=== PATIENT | male | born 1940 | race Hispanic/Latino ===

== ENCOUNTER 2017-01-15 11:10 | Day surgery (SDC) | payer MEDICARE, BC ==
[2017-01-14 09:40] VITALS: BMI 24.0
[2017-01-15 11:57] LABS: ADD MANUAL DIFF? NO
[2017-01-15 12:05] LABS: BASO % 6.9 % (0.0-3.0); EOS # 0.1 (0.0-0.7); EOS % 1.1 % (1.5-5.0); GRAN # 5.37 (1.4-6.5); GRAN % 61.5 % (50.0-68.0); HEMATOCRIT 27.2 % (42.0-52.0); LYMPH # 1.4 (1.2-3.4); LYMPH % 15.8 % (22.0-35.0); MEAN CELL VOLUME 85.8 fL (80.0-105.0); MEAN CORPUSCULAR HEMOGLOBIN 26.8 pg (25.0-35.0); MEAN CORPUSCULAR HGB CONC 31.3 g/dl (31.0-37.0); MEAN PLATELET VOLUME 8.5 fl (7.0-11.0); MONO # 1.3 (0.1-0.6); MONO % 14.7 % (1.0-6.0); PLATELET COUNT 156 10^3/uL (120.0-450.0); RED CELL DISTRIBUTION WIDTH 19.1 % (11.5-14.5); WHITE BLOOD COUNT 8.7 10^3/ul (4.5-11.0)
[2017-01-15 12:09] LABS: CALCIUM 8.9 mg/dL (8.4-10.5); POTASSIUM 4.8 mmol/L (3.6-5.0)
[2017-01-15 12:21] LABS: INR 1.06 (0.93-1.08)
--- NOTE | 2017-01-15 13:16 | CP.SDSHP ---
Same Day Surgery H & P - History Proposed Procedure: Insertion of Aspira cath Pre-Op Diagnosis: Ascites - Previous Medical/Surgical History Cardiac: Hypertension, Other (Abdominal ascites secondary to chronic diastolic failure.) Pulmonary: Other (Pulmonary HTN) Misc: Anemia (history of myelodysplastic syndrome), Other (History of developmental delays,has worsening of abdominal swelling over last few days, Diverticulosis ) Pain: 0. No Pain Previous Surgical History: EGD/Colonoscopy. Paracentesis x 2 - Allergies Allergies: Allergies No Known Allergies Allergy (Verified 12/18/16 12:03) - Physical Exam General Appearance: Elderly emaciated male Vital Signs: Vital Signs 01/15/17 11:30 Temperature 97.3 F L Pulse Rate 69 Respiratory 18 Rate Blood Pressure 126/62 O2 Sat by Pulse 100 Oximetry Mental Status: Alert & Oriented x3 Neuro: WNL Heart: WNL Lungs: WNL - {Optional Preform as Required} Abdomen: Other (distended.fluid ++,scrotal swelling +) Other Pertinent Findings: Pitting edema of the lower extremities noted. - Impression Impression: Ascites. - Date & Time Date: 01/15/17 Time: 13:16 Short Stay Discharge - Short Stay Discharge Admitting Diagnosis/Reason for Visit: ASCITES R18.8
[2017-01-15] MEDS ORDERED: Lidocaine 2% Inj (20ml) ONE (14:38)
[2017-01-15] MEDS ORDERED: Oxycodone/Acetaminophen 5/325 mg Tab PO PRN (15:34)
[2017-01-15 16:45] VITALS: RESP 20; TEMP 97; O2SAT 96
[2017-01-15 17:04] VITALS: BP 115/56; PULSE 68
--- NOTE | 2017-01-15 17:15 | VASCULAR ---
PROCEDURE: Ultrasound and fluoroscopically placed tunneled peritoneal catheter HISTORY: Cardiogenic cirrhosis. Recurrent ascites with abdominal pain and distention. Frequent paracenteses. Needs tunneled peritoneal catheter. PHYSICIAN(S): Ge Davis MD. TECHNIQUE: The relative risks and indications for the procedure were explained to the patient and his and informed written consent obtained. Sonography of the abdomen was performed in a supine position. This revealed a large amount of non-loculated ascites, greatest in the right lower quadrant. A puncture site was selected and the area was prepped and draped in the usual sterile fashion. 1% Xylocaine was used to anesthetize the skin and soft tissues. Conscious sedation monitoring were provided throughout the procedure by a nurse. A puncture the peritoneal cavity was performed in the right lower quadrant. 0.035 glidewire was advanced posteriorly and superiorly towards the diaphragm. The peel-away sheath was placed. Next the 15.5 Colombian Aspira catheter was advanced over the guidewire posteriorly and superiorly. The catheter was tunneled towards the midline. The catheter was secured in flush. A paracentesis was performed. 8000 cc of straw-colored fluid was aspirated. No labs were sent. IMPRESSION: 1. Ultrasound fluoroscopically placed tunneled peritoneal catheter. 2. Paracentesis. 8000 cc of clear yellow fluid was removed. 3. Initially a visiting nurse will be arranged for once a week. 1000 cc of fluid will be removed each week. The frequency and amount of fluid removed will be adjusted as necessary.
== END 2017-01-15 17:40 | disposition home or self-care (01) ==
LOC: SDS 11:10
PROVIDERS: ATTEND Radiology Vascular & Interventional Radiology
DX: D46.9 Myelodysplastic syndrome, unspecified (principal); I50.32 Chronic diastolic (congestive) heart failure; R62.50 Unspecified lack of expected normal physiological development in childhood; K57.30 Diverticulosis of large intestine without perforation or abscess without bleeding
CPT/HCPCS: 36415; 49418; 80048; 85025; 85610; 85730; 99152; C1769; J1644; J2405; J3010

== ENCOUNTER 2017-04-26 06:24 | Emergency (ER) | payer MEDICARE, BC ==
[2017-04-26 06:34] VITALS: BMI 22.9
[2017-04-26 06:38] VITALS: TEMP 98.4
--- NOTE | 2017-04-26 07:34 | ED PDOC ---
Arrival/HPI - General Chief Complaint: Weakness/Neurological Deficit Time Seen by Provider: 04/26/17 06:35 Historian: Patient - History of Present Illness Narrative History of Present Illness (Text): 04/26/17 07:34 A 77 year old male, whose past medical history includes CHF, was brought into the emergency department by EMS for evaluation. Patient reports this morning he slipped off his commode and landed on his bed. Patient denies any injuries or complaints. Patient notes left wrist pain and redness since the day prior, unrelated todays incident. Patient denies any loss of consciousness, head trauma , headache, dizziness, neck pain, fever, chills, nausea, vomiting, diarrhea, abdominal pain, back pain, chest pain or any other complaints. Sister states that since the patient was started on a new medication by nephrology, he has been having hand swelling and difficulty in getting up from a sitting position. She denies that the patient has been having frequent falls. PMD: Dr. Louis Time/Duration: Other (This morning) Quality: Other Context: Home Past Medical History - Provider Review Nursing Documentation Reviewed: Yes - Infectious Disease Hx of Infectious Diseases: None - Cardiac Hx Pacemaker: No Hx Peripheral Edema: Yes - Pulmonary Hx Respiratory Disorders: No - Neurological Hx Paralysis: No - Hematological/Oncological Hx Blood Transfusions: Yes Hx Blood Transfusion Reaction: No - Integumentary Hx Dermatological Disorder: Yes - Musculoskeletal/Rheumatological Hx Musculoskeletal Disorders: Yes - Gastrointestinal Hx Gastrointestinal Disorders: Yes (diverticulosis) - Psychiatric Hx Emotional Abuse: No Hx Physical Abuse: No Hx Substance Use: No - Surgical History Other/Comment: egd/colonoscopy polypectomy benign, sclerotherapy, clipping - Anesthesia Hx Anesthesia Reactions: No Hx Malignant Hyperthermia: No - Suicidal Assessment Feels Threatened In Home Enviroment: No Family/Social History - Physician Review Nursing Documentation Reviewed: Yes Family/Social History: No Known Family HX Smoking Status: Never Smoked Hx Alcohol Use: Yes (OCCASIONAL BEER) Hx Substance Use: No Allergies/Home Meds Allergies/Adverse Reactions: Allergies No Known Allergies Allergy (Verified 04/26/17 06:34) Home Medications: Home Meds Medication Instructions Recorded Confirmed Furosemide [Lasix] 80 mg PO BID 12/18/16 04/26/17 Potassium Chloride [K-Dur 20] 20 meq PO DAILY 01/14/17 04/26/17 Thiamine Mononitrate [Optimum 100 mg PO DAILY 01/14/17 04/26/17 Vitamin B-1] Review of Systems - Physician Review All systems were reviewed & negative as marked: Yes - Review of Systems Constitutional: absent: Fevers, Night Sweats Cardiovascular: absent: Chest Pain Gastrointestinal: absent: Abdominal Pain, Diarrhea, Nausea, Vomiting Musculoskeletal: Other (left wrist pain and redness). absent: Back Pain, Neck Pain Neurological: absent: Headache, Dizziness Physical Exam - Physical Exam Narrative Physical Exam (Text): Constitutional: No acute distress. Head: Normocephalic. Atraumatic. Eyes: PERRL. ENT: Moist mucous membranes. Neck: Supple. Cardiovascular: Regular rate. Chest: No tenderness. Respiratory: Clear to auscultation bilaterally. GI: Soft. Nontender. Nondistended. Back: No CVA tenderness. No midline tenderness. Musculoskeletal: Bilateral lower extremity pitting edema. No tenderness over bilateral ankle, tibia, fibula, knee or hip. Full ROM at hip. No clavicular pain. Mild erythema to radial aspect of left wrist with mild tenderness. Skin: No rash. Neurologic: Alert, no focal deficit. Vital Signs Reviewed: Yes Vital Signs Temp Pulse Resp BP Pulse Ox 04/26/17 08:22 73 17 122/58 L 99 04/26/17 06:36 98.4 F 80 16 137/69 98 Temperature: Afebrile Blood Pressure: Normal Pulse: Regular Respiratory Rate: Normal Appearance: Positive for: Well-Appearing, Non-Toxic, Comfortable Pain Distress: None Mental Status: Positive for: Alert and Oriented X 3 Medical Decision Making ED Course and Treatment: 04/26/17 07:33 Impression: A 77 year old male presents for evaluation after slipping off commode. Patient denies any pain or complaints. Patient notes left wrist pain and redness, unrelated to incident. Plan: -- Head CT -- Pelvis xray -- Left wrist xray -- Chest xray -- EKG -- Labs -- Urinalysis -- Reassess and disposition Progress Notes: Report Date : 04/26/2017 09:12:30 PROCEDURE: CT HEAD WITHOUT CONTRAST. Dictator : Ez Raymundo MD IMPRESSION: No acute intracranial findings XRs pelvis, CXR, and wrist no fracture or acute disease as read by me. Discussed case with Dr. Padkowsky, discussed labs and imaging results. He recommends discharge home and states he will see patient in his office tomorrow. - Lab Interpretations Lab Results: 04/26/17 06:35 04/26/17 06:35 Lab Results 04/26/17 06:35: Sodium 136, Potassium 4.5, Chloride 95 L, Carbon Dioxide 28, Anion Gap 18, BUN 93 H, Creatinine 2.3 H, Est GFR ( Amer) 34, Est GFR ( Non-Af Amer) 28, Random Glucose 176 H, Calcium 7.8 L, Total Bilirubin 0.9, AST 59, ALT 34, Alkaline Phosphatase 118, Total Creatine Kinase 55, Total Protein 7.6, Albumin 3.7, Globulin 3.9, Albumin/Globulin Ratio 0.9 L 04/26/17 06:35: PT 11.4, INR 1.06, APTT 35.2 H 04/26/17 06:35: WBC 12.3 H D, RBC 2.91 L, Hgb 7.5 L, Hct 24.9 L, MCV 85.6, MCH 25.8, MCHC 30.1 L, RDW 19.1 H, Plt Count 214, MPV 8.7, Gran % 70.7 H, Lymph % ( Auto) 11.5 L, Millard % (Auto) 12.1 H, Eos % (Auto) 1.5, Baso % (Auto) 4.2 H, Gran # 8.68 H, Lymph # 1.4, Millard # 1.5 H, Eos # 0.2, Baso # 0.52 I have reviewed the lab results: Yes - RAD Interpretation Radiology Orders: 04/26/17 07:42 HEAD W/O CONTRAST [CT] Stat CHEST ONE VIEW [RAD] Stat PELVIS ONE VIEW [RAD] Stat WRIST, LEFT 3 VIEWS [RAD] Stat - Scribe Statement The provider has reviewed the documentation as recorded by the Jeremyibclaudette Rico Provider Scribe Attestation: All medical record entries made by the Scribe were at my direction and personally dictated by me. I have reviewed the chart and agree that the record accurately reflects my personal performance of the history, physical exam, medical decision making, and the department course for this patient. I have also personally directed, reviewed, and agree with the discharge instructions and disposition. Disposition/Present on Arrival - Present on Arrival Any Indicators Present on Arrival: No History of DVT/PE: No History of Uncontrolled Diabetes: No Urinary Catheter: No History of Decub. Ulcer: No History Surgical Site Infection Following: None - Disposition Have Diagnosis and Disposition been Completed?: Yes Diagnosis: Fall Disposition: HOME/ ROUTINE Disposition Time: 10:00 Patient Plan: Discharge Condition: STABLE Discharge Instructions (ExitCare): Fall Prevention for Older Adults (ED) Referrals: Missy YOUNG,Jan Little MD [Primary Care Provider] - Follow up with primary
[2017-04-26 08:03] LABS: BASO # 0.52 K/mm3 (0.0-2.0); BASO % 4.2 % (0.0-3.0); EOS # 0.2 (0.0-0.7); EOS % 1.5 % (1.5-5.0); GRAN # 8.68 (1.4-6.5); GRAN % 70.7 % (50.0-68.0); LYMPH # 1.4 (1.2-3.4); LYMPH % 11.5 % (22.0-35.0); MEAN CELL VOLUME 85.6 fL (80.0-105.0); MEAN CORPUSCULAR HEMOGLOBIN 25.8 pg (25.0-35.0); MEAN CORPUSCULAR HGB CONC 30.1 g/dl (31.0-37.0); MEAN PLATELET VOLUME 8.7 fl (7.0-11.0); MONO # 1.5 (0.1-0.6); MONO % 12.1 % (1.0-6.0); PLATELET COUNT 214 10^3/uL (120.0-450.0); RBC 2.91 10^6/uL (3.5-6.1); RED CELL DISTRIBUTION WIDTH 19.1 % (11.5-14.5); WHITE BLOOD COUNT 12.3 10^3/ul (4.5-11.0)
[2017-04-26 08:04] LABS: INR 1.06 (0.93-1.08); PARTIAL THROMBOPLASTIN TIME 35.2 Seconds (23.7-30.8); PROTHROMBIN TIME 11.4 Seconds (9.9-11.8)
[2017-04-26 08:11] LABS: ALB/GLOB RATIO 0.9 (1.1-1.8); ALBUMIN 3.7 g/dL (3.0-4.8); CALCIUM 7.8 mg/dL (8.4-10.5)
[2017-04-26 08:20] LABS: HEMOGLOBIN 7.5 gm/dL (14.0-18.0)
[2017-04-26 08:23] VITALS: RESP 17
--- NOTE | 2017-04-26 08:46 | CARD ---
APPROVED REPORT EKG Measurement Heart [id number] <Conclusion> Atrial fibrillation Left axis deviation/LAHB Incomplete right bundle branch block STTW changes c/w ischemia.
--- NOTE | 2017-04-26 09:14 | CT ---
PROCEDURE: CT HEAD WITHOUT CONTRAST. HISTORY: fall COMPARISON: None available. TECHNIQUE: Axial computed tomography images were obtained through the head/brain without intravenous contrast. Radiation dose: Total exam DLP = 774 mGy-cm. This CT exam was performed using one or more of the following dose reduction techniques: Automated exposure control, adjustment of the mA and/or kV according to patient size, and/or use of iterative reconstruction technique. FINDINGS: HEMORRHAGE: No intracranial hemorrhage. BRAIN: No mass effect or edema. No atrophy or chronic microvascular ischemic changes. VENTRICLES: Unremarkable. No hydrocephalus. CALVARIUM: Unremarkable. PARANASAL SINUSES: Unremarkable as visualized. No significant inflammatory changes. 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 There is also partial opacification of the right middle ear cavity OTHER FINDINGS: None. IMPRESSION: No acute intracranial findings
[2017-04-26 10:17] VITALS: BP 99/55; PULSE 79; O2SAT 97
[2017-04-26 11:08] LABS: URINE BILIRUBIN NEGATIVE (NEGATIVE); URINE BLOOD TRACE-LYSED (NEGATIVE); URINE GLUCOSE (UA) NEGATIVE (NEGATIVE); URINE LEUKOCYTE ESTERASE NEGATIVE Leu/uL (NEGATIVE); URINE NITRATE NEGATIVE (NEGATIVE); URINE PROTEIN 30 mg/dL (<30 mg/dL); URINE UROBILINOGEN 0.2 E.U./dL (<1 E.U./dL)
[2017-04-26 11:10] LABS: URINE APPEARANCE CLEAR (CLEAR); URINE COLOR YELLOW (YELLOW)
--- NOTE | 2017-04-26 11:34 | RAD ---
PROCEDURE: Radiographs of the pelvis. HISTORY: fall COMPARISON: None. FINDINGS: BONES: Pelvic Bones: Unremarkable. Hips: Grossly unremarkable. JOINTS: Sacroiliac Joints: Unremarkable. Pubic Symphysis: Unremarkable. OTHER FINDINGS: None. IMPRESSION: Unremarkable radiographs of the pelvis.
--- NOTE | 2017-04-26 11:45 | RAD ---
PROCEDURE: CHEST RADIOGRAPH, 1 VIEW HISTORY: fall COMPARISON: 10/03/2016 FINDINGS: LUNGS: Clear. PLEURA: No pneumothorax or pleural fluid seen. CARDIOVASCULAR: Moderate cardiomegaly OSSEOUS STRUCTURES: No significant abnormalities. VISUALIZED UPPER ABDOMEN: Normal. OTHER FINDINGS: None. IMPRESSION: No active disease.
--- NOTE | 2017-04-26 11:45 | RAD ---
PROCEDURE: Left Wrist Radiographs. HISTORY: radial aspect swelling, erythema COMPARISON: None. FINDINGS: BONES: Normal. No fracture. JOINTS: Normal. No dislocation. SOFT TISSUES: Normal. OTHER FINDINGS: None. IMPRESSION: Normal left wrist radiographs.
== END 2017-04-26 10:36 | disposition home or self-care (01) ==
LOC: ED 06:24
DX: Z03.89 Encounter for observation for other suspected diseases and conditions ruled out (principal); W19.XXXA Unspecified fall, initial encounter

== ENCOUNTER 2017-11-13 23:37 | Inpatient (IN) | payer MEDICARE, BC ==
[2017-11-13 23:37] VITALS: BMI 22.9
--- NOTE | 2017-11-13 23:58 | ED PDOC ---
Arrival/HPI - General Historian: Patient - History of Present Illness Time/Duration: 1 week Symptom Onset: Gradual Symptom Course: Worsening Quality: Tightness (of bilateral lower extremities, focused tightness of the feet and ankles) <Nolvia Kolb - Last Filed: 11/14/17 04:03> <Laron Jeronimo DO - Last Filed: 11/14/17 06:22> - General Chief Complaint: Lower Extremity Problem/Injury Time Seen by Provider: 11/13/17 23:38 - History of Present Illness Narrative History of Present Illness (Text): CC: ankle pain, bilateral leg swelling 77M presents with bilateral leg swelling for the past week which did not fully improve with Lasix. Patient has been admitted in the past for CHF exacerbation. Patient states he recently had a paracentesis. Patient states he has shortness of breath for a week and leg swelling that has been greater than normal for a week. Patient has been taking water pills that have not been working lately. Patient states he has no issues with urination. Patient does not walk well lately due to leg pain per patient. PMH: CHF systolic dysfunction, cardiomegaly, pulmonary htn, anemia with history of myelodysplastic syndrome, diverticulosis, hypospadias, atrial fibrillation PMD: Dr. Louis 11/14/17 02:14 (Nolvia Kolb) Past Medical History - Provider Review Nursing Documentation Reviewed: Yes - Travel History Have you recently traveled outside [place] w/in the past 3 mons?: No - Infectious Disease Hx of Infectious Diseases: None - Cardiac Hx Pacemaker: No Hx Peripheral Edema: Yes - Pulmonary Hx Respiratory Disorders: No - Neurological Hx Paralysis: No - Hematological/Oncological Hx Blood Transfusions: Yes Hx Blood Transfusion Reaction: No - Integumentary Hx Dermatological Disorder: Yes - Musculoskeletal/Rheumatological Hx Musculoskeletal Disorders: Yes - Gastrointestinal Hx Gastrointestinal Disorders: Yes (diverticulosis) - Psychiatric Hx Emotional Abuse: No Hx Physical Abuse: No Hx Substance Use: No - Surgical History Other/Comment: egd/colonoscopy polypectomy benign, sclerotherapy, clipping - Anesthesia Hx Anesthesia Reactions: No Hx Malignant Hyperthermia: No - Suicidal Assessment Feels Threatened In Home Enviroment: No <Nolvia Kolb - Last Filed: 11/14/17 04:03> Family/Social History - Physician Review Nursing Documentation Reviewed: Yes Family/Social History: Unknown Family HX Smoking Status: Never Smoked Hx Alcohol Use: Yes (OCCASIONAL BEER) Hx Substance Use: No <Nolvia Kolb - Last Filed: 11/14/17 04:03> Allergies/Home Meds <Nolvia Kolb - Last Filed: 11/14/17 04:03> <Laron Jeronimo DO - Last Filed: 11/14/17 06:22> Allergies/Adverse Reactions: Allergies No Known Allergies Allergy (Verified 04/26/17 06:34) Home Medications: Home Meds Medication Instructions Recorded Confirmed Furosemide [Lasix] 80 mg PO BID 12/18/16 04/26/17 Potassium Chloride [K-Dur 20] 20 meq PO DAILY 01/14/17 04/26/17 Thiamine Mononitrate [Optimum 100 mg PO DAILY 01/14/17 04/26/17 Vitamin B-1] Review of Systems - Physician Review All systems were reviewed & negative as marked: Yes - Review of Systems Constitutional: Normal. absent: Fatigue, Weight Change Eyes: Normal. absent: Vision Changes, Photophobia ENT: Normal. absent: Hearing Changes, Tinnitus, Rhinorrhea, Epistaxis Respiratory: SOB. absent: Cough, Sputum, Wheezing Cardiovascular: Normal. absent: Chest Pain, Palpitations, Edema, Calf Pain Gastrointestinal: Normal. absent: Abdominal Pain, Stool Changes, Constipation, Diarrhea, Vomiting, Appetite Changes, Hematochezia, Hematemesis Genitourinary Male: Normal. absent: Dysuria, Frequency, Hematuria Musculoskeletal: Normal. absent: Arthralgias, Back Pain, Neck Pain Skin: Normal. absent: Rash, Pruritis, Skin Lesions Neurological: Normal. absent: Headache, Dizziness, Focal Weakness, Facial Droop , Disequilibrium Endocrine: Normal. absent: Diaphoresis, Polyuria, Polydipsia Hemo/Lymphatic: Normal. absent: Adenopathy, Easy Bleeding, Easy Bruising Psychiatric: Normal. absent: Anxiety, Depression, Suicidal Ideation <Nolvia Kolb - Last Filed: 11/14/17 04:03> Physical Exam Vital Signs Reviewed: Yes Temperature: Afebrile Pulse: Regular Respiratory Rate: Normal Appearance: Positive for: Uncomfortable. No: Non-Toxic Mental Status: Positive for: other (awake, delayed response in speech may be due to chronic alcohol abuse). No: Confused, Agitated, Lethargic - Systems Exam Head: Present: Atraumatic, Normocephalic Extroacular Muscles: Present: EOMI Conjunctiva: Present: Normal Mouth: Present: Moist Mucous Membranes, Normal Lips, Normal Tounge, Normal Teeth. No: Dry, Drooling, Trismus Nose (External): Present: Atraumatic. No: Abrasion, Contusion, Laceration Nose (Internal): Present: Normal Inspection, Moist Neck: Present: Normal Range of Motion, Trachea Midline. No: Meningeal Signs, JVD, Lymphadenopathy, Bruit Respiratory/Chest: Present: Clear to Auscultation, Good Air Exchange, Decreased Breath Sounds, Rales. No: Respiratory Distress, Accessory Muscle Use, Wheezes Cardiovascular: Present: Regular Rate and Rhythm, Normal S1, S2. No: Murmurs, Irregular Rhythm Abdomen: Present: Distention (positive fluid wave, ascites), Normal Bowel Sounds. No: Peritoneal Signs, Rebound Genitourinary Male: Present: Hernias (partially reducible left inguinal hernia) . No: Normal External Genitalia, Circumcised Penis, Testicle Tenderness, Masses , Erythema Upper Extremity: Present: Normal Inspection, Normal ROM, NORMAL PULSES, Capillary Refill < 2s Lower Extremity: Present: Edema, NORMAL PULSES. No: Normal ROM Neurological: Present: GCS=15, CN II-XII Intact Skin: Present: Warm, Dry, Rashes Psychiatric: Present: Alert, Other (patient has mental retardation) <Nolvia Kolb - Last Filed: 11/14/17 04:03> Vital Signs Temp Pulse Resp BP Pulse Ox 11/14/17 02:26 123/60 11/14/17 02:18 97.9 F 78 17 123/58 L 98 11/14/17 00:33 126/66 11/13/17 23:49 97.9 F 86 18 97 Medical Decision Making Re-evaluation Time: 02:01 Reassessment Condition: Re-examined, Unchanged - Lab Interpretations I have reviewed the lab results: Yes Interpretation: Abnormal lab values (hgb 7.3) - EKG Interpretation Interpreted by ED Physician: Yes Type: 12 lead EKG (78bpm atrial fibrillation) <Nolvia Kolb - Last Filed: 11/14/17 04:03> - Lab Interpretations I have reviewed the lab results: Yes <Laron Jeronimo DO - Last Filed: 11/14/17 06:22> ED Course and Treatment: 11/14/17 00:13 f/u CBC, CMP, Mg, ph, BNP, troponin I, EKG, CXR Patient was given Lasix 11/14/17 02:15 Lasix 40mg IVP additional Bladder scan showed 675cc spoke to Dr. Miguel Louis, patient is being admitted to telemetry 11/14/17 02:15 Phoslo ordered due to high phosphorus levels 11/14/17 02:38 (Nolvia Kolb) Patient Seen With Resident: In agreement with resident note which contains more details about the patient. Patient was seen and evaluated with resident. Came up with plan and treatment together. 77 year old male presents complaining of bilateral leg swelling for the past week. Plan: -- EKG -- Labs -- CXR -- Lasix (Laron Jeronimo DO) - Lab Interpretations Narrative Lab Interpretation (Text): 11/14/17 01:00 FOBT negative 11/14/17 02:37 BUN 107/3.6, GFR 17 Calcium 7.8, Phosph 7.2 BNP elevated Urinalysis high in protein , negative for nitrates and leukocyte esterase 11/14/17 02:38 (Cortes,Nolvia) Lab Results: 11/14/17 00:30 11/14/17 00:30 Lab Results 11/14/17 02:10: Urine Color Yellow, Urine Appearance Sl cloudy, Urine pH 6.0, Ur Specific Morgan 1.020, Urine Protein Trace H, Urine Glucose (UA) Negative, Urine Ketones Negative, Urine Blood Small H, Urine Nitrate Negative, Urine Bilirubin Negative, Urine Urobilinogen 0.2, Ur Leukocyte Esterase Negative, Urine RBC 1 - 3, Urine WBC 0 - 2, Ur Epithelial Cells 0 - 2 11/14/17 00:30: Sodium 138, Potassium 4.4, Chloride 97 L, Carbon Dioxide 23, Anion Gap 22 H, BUN 107 H, Creatinine 3.6 H, Est GFR ( Amer) 20, Est GFR (Non-Af Amer) 17, Random Glucose 164 H, Calcium 7.8 L, Phosphorus 7.2 H, Magnesium 2.1, Total Bilirubin 0.9, AST 52, ALT 25, Alkaline Phosphatase 109, Troponin I 0.04 D, NT-Pro-B Natriuret Pep 10707 H, Total Protein 7.4, Albumin 3.9, Globulin 3.5, Albumin/Globulin Ratio 1.1 11/14/17 00:30: WBC 8.7 D, RBC 2.77 L, Hgb 7.3 L, Hct 23.4 L, MCV 84.5, MCH 26.4, MCHC 31.2, RDW 18.8 H, Plt Count 231, MPV 8.5, Gran % 68.3 H, Lymph % ( Auto) 8.8 L, [place]isco[place] % (Auto) 17.6 H, Eos % (Auto) 1.1 L, Baso % (Auto) 4.2 H, Gran # 5.94, Lymph # 0.8 L, [place]isco[place] # 1.5 H, Eos # 0.1, Baso # 0.37 hgb 7.3 hct 23.4 previous hgb 7.5 in april 26 2017 (Nolvia Kolb) - RAD Interpretation Narrative RAD Interpretations (Text): 11/14/17 01:19 CXR cardiomegaly, venous congestion (Nolvia Kolb) Radiology Orders: 11/13/17 23:53 CHEST PORTABLE [RAD] Stat - Medication Orders Current Medication Orders: Discontinued Medications Calcium Acetate (Phoslo) 667 mg PO STAT STA Stop: 11/14/17 02:36 Last Admin: 11/14/17 02:58 Dose: 667 mg Furosemide (Lasix) 40 mg IVP STAT STA Stop: 11/13/17 23:54 Last Admin: 11/14/17 00:33 Dose: 40 mg MAR Blood Pressure Document 11/14/17 00:33 RD (Rec: 11/14/17 00:33 RD [id number]) Blood Pressure Blood Pressure (100/60-150/90) 126/66 IVP Administration Document 11/14/17 00:33 RD (Rec: 11/14/17 00:33 RD [id number]) Charges for Administration # of IVP Administrations 1 Furosemide (Lasix) 40 mg IVP STAT STA Stop: 11/14/17 02:06 Last Admin: 11/14/17 02:26 Dose: 40 mg MAR Blood Pressure Document 11/14/17 02:26 SS (Rec: 11/14/17 02:26 SS [id number]) Blood Pressure Blood Pressure (100/60-150/90) 123/60 IVP Administration Document 11/14/17 02:26 SS (Rec: 11/14/17 02:26 SS [id number]) Charges for Administration # of IVP Administrations 1 <Nolvia Kolb - Last Filed: 11/14/17 04:03> - Scribe Statement The provider has reviewed the documentation as recorded by the Scribe <Laron Jeronimo DO - Last Filed: 11/14/17 06:22> - Scribe Statement Nomi Lobo Provider Scribe Attestation: All medical record entries made by the Scribe were at my direction and personally dictated by me. I have reviewed the chart and agree that the record accurately reflects my personal performance of the history, physical exam, medical decision making, and the department course for this patient. I have also personally directed, reviewed, and agree with the discharge instructions and disposition. (Laron Jeronimo DO) Disposition/Present on Arrival - Present on Arrival Any Indicators Present on Arrival: No History of DVT/PE: No History of Uncontrolled Diabetes: No Urinary Catheter: No History of Decub. Ulcer: No History Surgical Site Infection Following: None - Disposition Have Diagnosis and Disposition been Completed?: Yes Disposition Time: 02:14 Patient Plan: Admission <Nolvia Kolb - Last Filed: 11/14/17 04:03> - Disposition Disposition Time: 01:50 <Laron Jeronimo DO - Last Filed: 11/14/17 06:22> - Disposition Diagnosis: CHF (congestive heart failure), CHF exacerbation, Left inguinal hernia, Hypospadias Disposition: HOSPITALIZED Patient Problems: Current Active Problems Problem Status Onset CHF (congestive heart failure) Acute CHF exacerbation Acute Hypospadias Acute Left inguinal hernia Acute Condition: FAIR
[2017-11-14 00:41] LABS: BASO # 0.37 K/mm3 (0.0-2.0); BASO % 4.2 % (0.0-3.0); EOS # 0.1 (0.0-0.7); EOS % 1.1 % (1.5-5.0); GRAN # 5.94 (1.4-6.5); GRAN % 68.3 % (50.0-68.0); LYMPH # 0.8 (1.2-3.4); LYMPH % 8.8 % (22.0-35.0); MEAN CELL VOLUME 84.5 fl (80.0-105.0); MEAN CORPUSCULAR HEMOGLOBIN 26.4 pg (25.0-35.0); MEAN CORPUSCULAR HGB CONC 31.2 g/dl (31.0-37.0); MEAN PLATELET VOLUME 8.5 fl (7.0-11.0); MONO # 1.5 (0.1-0.6); MONO % 17.6 % (1.0-6.0); RBC 2.77 10^6/uL (3.5-6.1); RED CELL DISTRIBUTION WIDTH 18.8 % (11.5-14.5); WHITE BLOOD COUNT 8.7 10^3/ul (4.5-11.0)
[2017-11-14 00:45] LABS: HEMOGLOBIN 7.3 g/dL (14.0-18.0)
[2017-11-14 01:02] LABS: TROPONIN I 0.04 ng/mL
[2017-11-14 01:48] LABS: ALB/GLOB RATIO 1.1 (1.1-1.8); ALBUMIN 3.9 g/dL (3.0-4.8); CALCIUM 7.8 mg/dL (8.4-10.5); MAGNESIUM 2.1 mg/dL (1.7-2.2)
[2017-11-14 02:32] LABS: URINE BILIRUBIN NEGATIVE (NEGATIVE); URINE BLOOD SMALL (NEGATIVE); URINE GLUCOSE (UA) NEGATIVE (NEGATIVE); URINE LEUKOCYTE ESTERASE NEGATIVE Leu/uL (NEGATIVE); URINE NITRATE NEGATIVE (NEGATIVE); URINE PROTEIN TRACE mg/dL (<30 mg/dL); URINE UROBILINOGEN 0.2 E.U./dL (<1 E.U./dL)
[2017-11-14 02:48] LABS: URINE COLOR YELLOW (YELLOW)
[2017-11-14 02:49] LABS: URINE APPEARANCE SL CLOUDY (CLEAR)
[2017-11-14 02:56] LABS: URINE EPITHELIAL CELLS 0 - 2 /hpf (0-5); URINE WBC 0 - 2 /hpf (0-6)
--- NOTE | 2017-11-14 08:53 | RAD ---
HISTORY: Shortness of breath COMPARISON: 04/26/2017. FINDINGS: LUNGS: The lungs are well inflated. There is mild pulmonary venous congestion and redistribution. PLEURA: No significant pleural effusion identified, no pneumothorax apparent. CARDIOVASCULAR: There is moderate cardiomegaly. OSSEOUS STRUCTURES: No significant abnormalities. VISUALIZED UPPER ABDOMEN: Normal. OTHER FINDINGS: None. IMPRESSION: Moderate cardiomegaly, mild pulmonary venous congestion and redistribution. No active pulmonary disease.
--- NOTE | 2017-11-14 15:49 | HP ---
HISTORY OF PRESENT ILLNESS: The patient is a 77-year-old man with a past medical history of myelodysplastic syndrome (followed by Dr. Constantino), chronic diastolic heart failure, severe pulmonary hypertension, CKD stage IV (baseline creatinine 3.5 to 4), recurrent ascites secondary to severe underlying right heart failure/severe pulmonary hypertension, status post placement of abdominal thoracentesis port and anemia of chronic disease (baseline hemoglobin 7 to 8), who presented to [facility] ED for evaluation of a several-day history of worsening lower extremity edema, dyspnea with exertion and orthopnea. The patient reports that he was in his usual state of health until approximately one week ago when he noted increasing lower extremity edema. He states that his feet were becoming more heavy and it was more difficult for him to ambulate. He also reported increased dyspnea with exertion as well as two-pillow orthopnea. He denies fevers, chills, rigors, palpitations or chest pain associated with the symptoms, but did endorse cough intermittently productive of clear sputum. Upon arrival to the ED, he was noted to be afebrile and hemodynamically stable; however, with significant lower extremity edema, he was administered 40 mg of IV Lasix x2 and subsequently admitted to the telemetry dempsey for continued management of diastolic heart failure. PAST MEDICAL HISTORY: As per HPI, also hypertension. PAST SURGICAL HISTORY: As per HPI. ALLERGIES: NO KNOWN DRUG ALLERGIES. MEDICATIONS: Omeprazole 40 mg p.o. daily, Flomax 0.4 mg p.o. daily, multivitamin 1 tab p.o. daily and Lasix 80 mg p.o. b.i.d. FAMILY HISTORY: Significant for hypertension and malignancy in both parents (the patient is unclear as to what type of cancer, however). SOCIAL HISTORY: The patient reports a former [id number] smoking history, but quit several years ago. He reports former daily alcohol use consisting of 5 to 6 beers daily, but quit approximately 3 years ago, and he denies illicit drug abuse. REVIEW OF SYSTEMS: A 14-point review of systems is negative except as per HPI. PHYSICAL EXAMINATION: GENERAL: No apparent distress. VITAL SIGNS: Temperature 97.7, pulse 71, blood pressure 132/64, respiratory rate 18, oxygen saturation 98% on room air. HEENT: PERRL. EOMI. No scleral icterus. Conjunctival pallor is noted. NECK: No JVD. No bruit. LUNGS: Decreased breath sounds to the basis with few scattered rhonchi. CARDIOVASCULAR: Regular rate and rhythm. Normal S1 and S2. Grade 2/6 systolic murmur to the left upper sternal border. ABDOMEN: Soft, nontender. Mildly distended. No rigidity. No tympany. Paracentesis access appears clean, dry and intact. EXTREMITIES: 1 to 2+ lower extremity edema bilaterally with chronic venous stasis changes. NEUROLOGIC: Awake, alert, and oriented x3. No focal motor deficits. LABORATORY DATA: WBC 8.7, hemoglobin 7.3, hematocrit 23, platelets 231. Sodium 138, potassium 4.4, chloride 97, bicarbonate 23, BUN 107, creatinine 3.6, glucose 164, calcium 7.8, phosphorus 7.2. BNP 33,900. Troponin 0.04. IMAGING STUDIES: Chest x-ray demonstrates cardiomegaly with bilateral pulmonary venous congestion. ASSESSMENT: The patient is a 77-year-old man with multiple medical comorbidities including chronic diastolic heart failure with severe pulmonary hypertension, recurrent ascites secondary to underlying right heart failure/severe pulmonary hypertension, chronic kidney disease stage IV, anemia of chronic disease, and myelodysplastic syndrome, who presented for evaluation of a several-day history of worsening lower extremity edema, orthopnea and exertional dyspnea, and who was admitted for management of acute on chronic diastolic heart failure exacerbation. PLAN: 1. Acute on chronic diastolic heart failure exacerbation, continue Lasix 60 mg IV q. 12 hours, continue to monitor strict in's and out's. The patient has diuresed 1.2 liters since admission. Continue to monitor daily weights. We will repeat transthoracic echocardiogram and cycle cardiac enzymes (first set negative). Dr. Danielle of Cardiology has been consulted for further evaluation and recommendations. 2. CKD stage IV. The patient is at his baseline creatinine of 3.5 to 4. We will continue to renally dose medications, avoid nephrotoxins and monitor renal function daily. 3. Recurrent ascites secondary to underlying right heart failure/severe pulmonary hypertension. Continue with care as per #1. 4. Anemia of chronic disease. Lab demonstrates H and H at patient's baseline. His is followed by Dr. Constantino on an outpatient basis for Aranesp treatment. 5. Myelodysplastic syndrome. As above, the patient will resume followup with Dr. Constantino upon discharge. 6. Hypertension. Blood pressure controlled. Continue current medications. 7. BPH. Resume Flomax 0.4 mg p.o. daily. 8. GERD. The patient is on omeprazole 40 mg p.o. daily at home; however, this is not on formulary, thus we will start Protonix 40 mg p.o. daily. 9. Prophylaxis. Continue with Protonix for GI prophylaxis and SCD's for DVT prophylaxis. CODE STATUS: Full code. Jan Louis MD
--- NOTE | 2017-11-14 15:55 | CARD ---
APPROVED REPORT EKG Measurement Heart [id number] <Conclusion> Atrial fibrillation Left axis deviation Right bundle branch block Abnormal ECG
--- NOTE | 2017-11-14 23:57 | CP.PCM.PN ---
Subjective - Date & Time of Evaluation Date of Evaluation: 11/14/17 Time of Evaluation: 23:53 - Subjective Subjective: Patient was seen at bedside. He complains of both ankle pain. It is chronic problem. Takes some pain medication at home but can not tell the name of it. Has no other complaints now. Has swelling of both ankles ,right > left. States that this swelling of both ankle in not new. This 77 year old white male is admitted with both legs swelling, dyspnea with exertion, orthopnea, acute on chronic diasolic heart failure. Has PMH of Chronic diastolic heart failure, myelodysplastic syndrome,CKD, ascites, pulmonary HTN, anemia, HTN. Objective - Vital Signs/Intake and Output Vital Signs (last 24 hours): Temp Pulse Resp BP Pulse Ox 99.1 F 78 20 142/78 96 11/14/17 18:00 11/14/17 18:00 11/14/17 18:00 11/14/17 21:20 11/14/17 04:28 - Medications Medications: Current Medications Acetaminophen (Tylenol 325mg Tab) 975 mg PO STAT STA Stop: 11/14/17 23:53 Furosemide (Lasix) 60 mg IVP Q12 JAMES Last Admin: 11/14/17 21:20 Dose: 60 mg Pantoprazole Sodium (Protonix Ec Tab) 40 mg PO 0600 JAMES Tamsulosin HCl (Flomax) 0.4 mg PO DAILY [facility] Last Admin: 11/14/17 09:23 Dose: 0.4 mg - Labs Labs: Most Recent Lab Values WBC 8.7 10^3/ul (4.5-11.0) D 11/14/17 00:30 RBC 2.77 10^6/uL (3.5-6.1) L 11/14/17 00:30 Hgb 7.3 g/dL (14.0-18.0) L 11/14/17 00:30 Hct 23.4 % (42.0-52.0) L 11/14/17 00:30 MCV 84.5 fl (80.0-105.0) 11/14/17 00:30 MCH 26.4 pg (25.0-35.0) 11/14/17 00:30 MCHC 31.2 g/dl (31.0-37.0) 11/14/17 00:30 RDW 18.8 % (11.5-14.5) H 11/14/17 00:30 Plt Count 231 10^3/uL (120.0-450.0) 11/14/17 00:30 MPV 8.5 fl (7.0-11.0) 11/14/17 00:30 Gran % 68.3 % (50.0-68.0) H 11/14/17 00:30 Lymph % (Auto) 8.8 % (22.0-35.0) L 11/14/17 00:30 [place] % (Auto) 17.6 % (1.0-6.0) H 11/14/17 00:30 Eos % (Auto) 1.1 % (1.5-5.0) L 11/14/17 00:30 Baso % (Auto) 4.2 % (0.0-3.0) H 11/14/17 00:30 Gran # 5.94 (1.4-6.5) 11/14/17 00:30 Lymph # 0.8 (1.2-3.4) L 11/14/17 00:30 [place] # 1.5 (0.1-0.6) H 11/14/17 00:30 Eos # 0.1 (0.0-0.7) 11/14/17 00:30 Baso # 0.37 K/mm3 (0.0-2.0) 11/14/17 00:30 Sodium 138 mmol/L (132-148) 11/14/17 00:30 Potassium 4.4 mmol/L (3.6-5.0) 11/14/17 00:30 Chloride 97 mmol/L (98-107) L 11/14/17 00:30 Carbon Dioxide 23 mmol/L (21-33) 11/14/17 00:30 Anion Gap 22 (10-20) H 11/14/17 00:30 BUN 107 mg/dL (7-21) H 11/14/17 00:30 Creatinine 3.6 mg/dl (0.8-1.5) H 11/14/17 00:30 Est GFR ( Amer) 20 11/14/17 00:30 Est GFR (Non-Af Amer) 17 11/14/17 00:30 Random Glucose 164 mg/dL (70-110) H 11/14/17 00:30 Calcium 7.8 mg/dL (8.4-10.5) L 11/14/17 00:30 Phosphorus 7.2 mg/dL (2.5-4.5) H 11/14/17 00:30 Magnesium 2.1 mg/dL (1.7-2.2) 11/14/17 00:30 Total Bilirubin 0.9 mg/dL (0.2-1.3) 11/14/17 00:30 AST 52 U/L (17-59) 11/14/17 00:30 ALT 25 U/L (7-56) 11/14/17 00:30 Alkaline Phosphatase 109 U/L (38-126) 11/14/17 00:30 Troponin I 0.05 ng/mL D 11/14/17 09:30 NT-Pro-B Natriuret Pep 50969 pg/mL (0-450) H 11/14/17 00:30 Total Protein 7.4 g/dL (5.8-8.3) 11/14/17 00:30 Albumin 3.9 g/dL (3.0-4.8) 11/14/17 00:30 Globulin 3.5 gm/dL 11/14/17 00:30 Albumin/Globulin Ratio 1.1 (1.1-1.8) 11/14/17 00:30 Urine Color Yellow (YELLOW) 11/14/17 02:10 Urine Appearance Sl cloudy (CLEAR) 11/14/17 02:10 Urine pH 6.0 (4.7-8.0) 11/14/17 02:10 Ur Specific [place] 1.020 (1.005-1.035) 11/14/17 02:10 Urine Protein Trace mg/dL (<30 mg/dL) H 11/14/17 02:10 Urine Glucose (UA) Negative mg/dL (NEGATIVE) 11/14/17 02:10 Urine Ketones Negative mg/dL (NEGATIVE) 11/14/17 02:10 Urine Blood Small (NEGATIVE) H 11/14/17 02:10 Urine Nitrate Negative (NEGATIVE) 11/14/17 02:10 Urine Bilirubin Negative (NEGATIVE) 11/14/17 02:10 Urine Urobilinogen 0.2 E.U./dL (<1 E.U./dL) 11/14/17 02:10 Ur Leukocyte Esterase Negative [place]/uL (NEGATIVE) 11/14/17 02:10 Urine RBC 1 - 3 /hpf (0-2) 11/14/17 02:10 Urine WBC 0 - 2 /hpf (0-6) 11/14/17 02:10 Ur Epithelial Cells 0 - 2 /hpf (0-5) 11/14/17 02:10 - Constitutional Appears: Well, No Acute Distress - Head Exam Head Exam: ATRAUMATIC, NORMAL INSPECTION, NORMOCEPHALIC - Eye Exam Eye Exam: Normal appearance - ENT Exam ENT Exam: Normal External Ear Exam - Neck Exam Neck Exam: Normal Inspection - Respiratory Exam Respiratory Exam: NORMAL BREATHING PATTERN - Cardiovascular Exam Cardiovascular Exam: absent: JVD - GI/Abdominal Exam GI & Abdominal Exam: absent: Distended - Rectal Exam Rectal Exam: Deferred - Exam Additional comments: Deferred. - Extremities Exam Extremities Exam: Pedal Edema (ankle edema present.) - Back Exam Back Exam: NORMAL INSPECTION - Neurological Exam Neurological Exam: Alert, Awake, Oriented x3 - Psychiatric Exam Psychiatric exam: Normal Affect, Normal Mood - Skin Skin Exam: Normal Color Assessment and Plan - Assessment and Plan (Free Text) Assessment: Both ankle pain. Both ankle swelling. Arthritis? HTN. CHF. CKD. Anemia. Pulmonary HTN. Plan: Tylenol 975 mg PO x 1. Continue present management as per PMD.
[2017-11-15] MEDS: Pantoprazole 40 mg EC Tab PO SCH (06:17)
[2017-11-15 11:01] LABS: BASO # 0.38 K/mm3 (0.0-2.0); BASO % 4.5 % (0.0-3.0); EOS # 0.1 (0.0-0.7); EOS % 0.8 % (1.5-5.0); GRAN # 5.92 (1.4-6.5); GRAN % 69.8 % (50.0-68.0); LYMPH # 1.3 (1.2-3.4); MEAN CELL VOLUME 83.8 fl (80.0-105.0); MEAN CORPUSCULAR HEMOGLOBIN 25.6 pg (25.0-35.0); MEAN CORPUSCULAR HGB CONC 30.5 g/dl (31.0-37.0); MEAN PLATELET VOLUME 8.5 fl (7.0-11.0); MONO # 0.8 (0.1-0.6); MONO % 9.9 % (1.0-6.0); RBC 2.66 10^6/uL (3.5-6.1); RED CELL DISTRIBUTION WIDTH 18.5 % (11.5-14.5); WHITE BLOOD COUNT 8.5 10^3/ul (4.5-11.0)
[2017-11-15 11:06] LABS: HEMOGLOBIN 6.8 g/dL (14.0-18.0)
[2017-11-15 11:16] LABS: ALB/GLOB RATIO 1.1 (1.1-1.8); ALBUMIN 3.3 g/dL (3.0-4.8); CALCIUM 7.8 mg/dL (8.4-10.5)
--- NOTE | 2017-11-15 12:24 | PN ---
SUBJECTIVE: The patient was seen and examined at the bedside on the telemetry dempsey. No acute events overnight. He remains afebrile and hemodynamically stable. He has diuresed well since admission with approximately 1.8 liters of urinary output over the past 24 hours. Overnight he was noted to complain of bilateral lower extremity pain which resolved with Tylenol. Otherwise he offers no complaints. OBJECTIVE: VITAL SIGNS: Temperature 98.4, pulse 75, blood pressure 117/50, respiratory rate 20, and oxygen saturations 96% on room air. GENERAL: No apparent distress. HEENT: PERRL and EOMI. No scleral icterus. Conjunctival pallor is noted. NECK: No JVD and no bruits. LUNGS: Decreased breath sounds at the bases with few scattered rhonchi. CARDIOVASCULAR: Regular rate and rhythm. Normal S1 and S2. Grade II/ systolic murmur to the left upper sternal border. ABDOMEN: Normoactive bowel sounds. Soft, nontender, and nondistended. No rigidity. No tympany. Paracentesis access appears clean, dry and intact. EXTREMITIES: 1+ bilateral lower extremity edema with chronic venous stasis changes. NEUROLOGIC: Awake, alert, and oriented x3. No focal motor deficits. LABORATORY DATA: Morning labs are pending. ASSESSMENT: The patient is a 77 year old man with chronic diastolic heart failure with severe pulmonary hypertension, recurrent ascites secondary to underlying right heart failure, CKD Stage IV, anemia of chronic disease and myelodysplastic syndrome who presented for evaluation of several day history of worsening lower extremity edema, orthopnea and exertional dyspnea and was admitted for management of [id number] diastolic heart failure exacerbation. PLAN: 1. [id number] diastolic heart failure exacerbation: The patient continues to diurese well. Will lower Lasix to 40mg IV Q12. Input from Dr. Danielle noted and appreciated. A TTE is ordered and pending. 2. CKD Stage IV. Renal function remains at baseline. Continue to renally dose medications, avoid nephrotoxins and monitor CMP daily. 3. Recurrent ascites secondary to underlying right heart failure/severe pulmonary hypertension. Continue care as above. 4. Anemia of chronic disease. Monitor H/H daily and transfuse as needed. Baseline Hb is 7-8. He is followed by Dr. Constantino. 5. Myelodysplastic syndrome. As above, the patient to resume followup with Dr. Constantino upon discharge. 6. Hypertension. Blood pressure controlled. Continue current medications. 7. BPH. Continue Flomax 0.4 mg p.o. daily. 8. GERD. Continue Protonix 40 mg p.o. daily. 9. Prophylaxis: Continue Protonix for GI prophylaxis and SCDs for DVT prophylaxis. CODE STATUS: Full code. Jan Louis MD MTDD
[2017-11-15 16:50] LABS: MEAN CELL VOLUME 83.5 fl (80.0-105.0); MEAN CORPUSCULAR HEMOGLOBIN 25.6 pg (25.0-35.0); MEAN CORPUSCULAR HGB CONC 30.6 g/dl (31.0-37.0); RBC 2.66 10^6/uL (3.5-6.1); RED CELL DISTRIBUTION WIDTH 18.6 % (11.5-14.5); WHITE BLOOD COUNT 9.1 10^3/ul (4.5-11.0)
[2017-11-15 17:00] LABS: HEMOGLOBIN 6.8 g/dL (14.0-18.0)
--- NOTE | 2017-11-15 23:26 | CP.PCM.PN ---
Subjective - Date & Time of Evaluation Date of Evaluation: 11/15/17 Time of Evaluation: 23:24 - Subjective Subjective: S: Requests a sleeping pill. He did not get 10 mg of Ambien because of pharmacy protocol to not give Ambien 10 mg because of age over 77 years. Has no other complaints now. O: Last Vital Signs 3 Temp 97.4 F L 11/15/17 17:27 Pulse 82 11/15/17 22:00 Resp 20 11/15/17 17:27 BP 136/64 11/15/17 21:19 Pulse Ox 96 11/14/17 04:28 Awake, alert, not in distress. LUNGS: Normal breathing pattern. A: Adjustment insomnia. P: Ambien 5 mg PO x 1. (Additional.) Objective - Vital Signs/Intake and Output Vital Signs (last 24 hours): Temp Pulse Resp BP Pulse Ox 97.4 F L 82 20 136/64 96 11/15/17 17:27 11/15/17 22:00 11/15/17 17:27 11/15/17 21:19 11/14/17 04:28 Intake and Output: 11/15/17 11/16/17 18:59 06:59 Intake Total 900 Output Total 650 Balance 250 - Medications Medications: Current Medications Acetaminophen (Tylenol 325mg Tab) 650 mg PO Q6H PRN PRN Reason: Fever >100.4 F Last Admin: 11/15/17 23:09 Dose: 650 mg Furosemide (Lasix) 60 mg IVP Q12 JAMES Last Admin: 11/15/17 21:19 Dose: 60 mg Pantoprazole Sodium (Protonix Ec Tab) 40 mg PO 0600 JAMES Last Admin: 11/15/17 06:17 Dose: 40 mg Tamsulosin HCl (Flomax) 0.4 mg PO DAILY JAMES Last Admin: 11/15/17 09:06 Dose: 0.4 mg Zolpidem Tartrate (Ambien) 5 mg PO HS PRN; Protocol PRN Reason: Insomnia Last Admin: 11/15/17 21:33 Dose: 5 mg - Labs Labs: 11/15/17 16:15 11/15/17 10:50
[2017-11-16] MEDS: Pantoprazole 40 mg EC Tab PO SCH (05:16)
[2017-11-16 06:37] LABS: BASO % 4.9 % (0.0-3.0); EOS # 0.1 (0.0-0.7); EOS % 1.1 % (1.5-5.0); MEAN CORPUSCULAR HEMOGLOBIN 25.4 pg (25.0-35.0); MEAN CORPUSCULAR HGB CONC 30.6 g/dl (31.0-37.0); MEAN PLATELET VOLUME 8.3 fl (7.0-11.0); PLATELET COUNT 247 10^3/uL (120.0-450.0); RBC 2.76 10^6/uL (3.5-6.1); RED CELL DISTRIBUTION WIDTH 18.6 % (11.5-14.5); WHITE BLOOD COUNT 12.2 10^3/ul (4.5-11.0)
[2017-11-16 07:37] LABS: ALBUMIN 3.5 g/dL (3.0-4.8); CALCIUM 8.1 mg/dL (8.4-10.5)
--- NOTE | 2017-11-16 13:06 | PN ---
SUBJECTIVE: The patient was seen and examined at bedside in the telemetry dempsey. No acute events overnight. He remains afebrile and hemodynamically stable. This morning he reports improvement in his lower extremity edema and pain and largely offers no complaints. OBJECTIVE: VITAL SIGNS: Temperature 98.4, pulse 78, blood pressure 104/55, respiratory rate 20, and oxygen saturations 95% on room air. GENERAL: No apparent distress. HEENT: PERRL, EOMI. No scleral icterus. Conjunctival pallor is noted. NECK: No JVD. No bruits. LUNGS: Decreased breath sounds at the bases with few scattered wheeze. CARDIOVASCULAR: Regular rate and rhythm. Normal S1 and S2. Grade II/ systolic murmur to left upper sternal border. ABDOMEN: Normoactive bowel sounds. Soft, nontender, and nondistended. Paracentesis access appears clean, dry, and intact. EXTREMITIES: 1+ bilateral lower extremity edema with chronic venous stasis changes. NEUROLOGIC: Awake, alert, and oriented x3. No focal motor deficits. LABORATORY DATA: WBC 12.2, hemoglobin 7, hematocrit 23, and platelets 247. Sodium 134, potassium 4.3, chloride 94, bicarbonate 24, BUN 100, creatinine 3.5 , and glucose 157. ASSESSMENT: The patient is a 77 year old man with chronic diastolic heart failure with severe pulmonary hypertension, recurrent ascites secondary to underlying right heart failure, chronic kidney disease stage IV, anemia of chronic disease and myelodysplastic syndrome who presented for evaluation of a several day history of worsening lower extremity edema, orthopnea and exertional dyspnea who was admitted for management of [id number] diastolic heart failure exacerbation. PLAN: 1. Ovocg-[id number] diastolic heart failure exacerbation: The patient continues to diurese well. We will lower Lasix to 40 mg IV q.12 hours. Input from Cardiology pending, a TTE is pending. 2. CKD stage IV: Renal function remains at baseline. Continue to renally dose medications, avoid nephrotoxins and monitor CMP daily. As above, we will lower Lasix to 40 mg IV q.12 hours. 3. Recurrent ascites secondary to underlying right heart failure/severe pulmonary hypertension: Continue care as above. 4. Anemia of chronic disease: Monitor H/H daily and transfuse as needed. Baseline hemoglobin is 7 to 8. He is followed by Dr. Constantino. 5. Myelodysplastic syndrome: As above, the patient to resume follow up with Dr. Constantino upon discharge. 6. Hypertension: Blood pressure controlled. Continue current medications. 7. BPH: Continue Flomax 0.4 mg p.o. daily. 8. GERD: Continue Protonix 40 mg p.o. daily. 9. Prophylaxis: Continue Protonix for GI prophylaxis and SCDs for DVT prophylaxis. CODE STATUS: Full code. Jan Louis MD MTDJaylene
--- NOTE | 2017-11-16 14:18 | CON ---
DATE: 11/15/2017 REQUESTING PHYSICIAN: Dr. Louis. REASON FOR CONSULTATION: Dyspnea and edema. HISTORY OF PRESENT ILLNESS: This is a 77-year-old man with a history of valvular heart disease and severe pulmonary hypertension, as well as myelodysplastic syndrome, who was admitted with worsening lower extremity edema. He has a history of hypertension as well as mental retardation. He lives at home with his sister. He was admitted last year with similar problems. Echocardiogram at that point revealed evidence of biatrial enlargement with normal LV size and mildly reduced LV systolic function. There is evidence of RV volume and pressure overload and septal dyskinesis. Mild aortic stenosis was present. Moderate mitral regurgitation was noted as well as severe tricuspid regurgitation. Right ventricular systolic pressure was estimated at 84 mmHg. The patient denies any palpitations or chest pain. PAST MEDICAL HISTORY: Notable for the problems mentioned above. MEDICATIONS AT HOME: Included Lasix 80 mg b.i.d., Flomax, and omeprazole. FAMILY HISTORY: Both parents are from cancer. SOCIAL HISTORY: He lives with his sister. He is a former smoker as well as having history of really heavy alcohol use in the past. REVIEW OF SYSTEMS: A 10-point review of systems is otherwise unremarkable. PHYSICAL EXAMINATION: GENERAL: He is an elderly man who appears comfortable at rest. VITAL SIGNS: His blood pressure is 116/50 with a pulse of 70, respirations are 16, and he is afebrile. HEENT: No JVD or bruits noted. CHEST: Bilateral scattered rhonchi heard with diminished breath sounds at the bases. HEART: Reveals the PMI displaced laterally with systolic murmur present at the base. A systolic murmur noted at the lower sternal border as well. ABDOMEN: Soft and nontender with normoactive bowel sounds. EXTREMITIES: Revealed 2+ edema to the knees. LABORATORY DATA: His electrocardiogram reveals atrial fibrillation with controlled rate and nonspecific ST-T abnormalities. Chest x-ray reveals enlarged cardiac silhouette with clear lung malone. DIAGNOSTIC DATA: Reveals a potassium 4.0, BUN and creatinine are 100 and 3.3. White count is 8.5, hemoglobin and hematocrit is 6.8 and 22.3 with a platelet count of 209,000. IMPRESSION: 1. Right-sided heart failure. 2. Myelodysplastic syndrome with severe anemia. 3. Severe renal insufficiency, chronic. 4. Atrial fibrillation, appears to be a recent onset. RECOMMENDATIONS: Continued diuretic therapy will be planned. An echocardiogram will be repeated to access LV size and function as well as left atrial size. Decision need to be made regarding the appropriateness of anticoagulant therapy it his atrial fibrillation persists. Further recommendations will be made based upon his clinical course and the results of the above evaluation. Thank you for this consultation. I will be happy to follow along as needed. Trace Danielle MD
[2017-11-17] MEDS: Pantoprazole 40 mg EC Tab PO SCH (05:52)
[2017-11-17 06:53] LABS: BASO # 0.63 K/mm3 (0.0-2.0); EOS # 0.1 (0.0-0.7); EOS % 1.1 % (1.5-5.0); GRAN # 8.56 (1.4-6.5); GRAN % 68.7 % (50.0-68.0); LYMPH # 1.4 (1.2-3.4); LYMPH % 11.1 % (22.0-35.0); MEAN CELL VOLUME 82.3 fl (80.0-105.0); MEAN CORPUSCULAR HEMOGLOBIN 25.6 pg (25.0-35.0); MEAN CORPUSCULAR HGB CONC 31.1 g/dl (31.0-37.0); MEAN PLATELET VOLUME 8.9 fl (7.0-11.0); MONO # 1.8 (0.1-0.6); MONO % 14.1 % (1.0-6.0); RBC 2.77 10^6/uL (3.5-6.1); RED CELL DISTRIBUTION WIDTH 18.1 % (11.5-14.5); WHITE BLOOD COUNT 12.5 10^3/ul (4.5-11.0)
[2017-11-17 07:17] LABS: ALBUMIN 3.4 g/dL (3.0-4.8); CALCIUM 7.9 mg/dL (8.4-10.5)
[2017-11-17 07:49] LABS: HEMOGLOBIN 7.1 g/dL (14.0-18.0)
--- NOTE | 2017-11-17 08:44 | CP.PCM.PN ---
Subjective - Date & Time of Evaluation Date of Evaluation: 11/16/17 Time of Evaluation: 07:00 - Subjective Subjective: Stable on 2R. Confusion noted. V/S noted. AF PE: Lungs: rhonchi Cor.: irreg, S1S2, sys. murmur Abd.: soft Ext.: + edema Neuro.: alert I/O= 1500/1700 Labs noted: H/H = 7/22.9, Cr. = 3.5 Objective - Vital Signs/Intake and Output Vital Signs (last 24 hours): Temp Pulse Resp BP Pulse Ox 98.0 F 78 20 104/55 L 95 11/16/17 06:00 11/16/17 06:00 11/16/17 06:00 11/16/17 06:00 11/16/17 06:00 Intake and Output: 11/16/17 11/16/17 06:59 18:59 Intake Total 600 Output Total 1050 Balance -450 - Medications Medications: Current Medications Acetaminophen (Tylenol 325mg Tab) 650 mg PO Q6H PRN PRN Reason: Fever >100.4 F Last Admin: 11/16/17 04:13 Dose: 650 mg Furosemide (Lasix) 40 mg IVP Q12 JAMES Pantoprazole Sodium (Protonix Ec Tab) 40 mg PO 0600 JAMES Last Admin: 11/16/17 05:16 Dose: 40 mg Tamsulosin HCl (Flomax) 0.4 mg PO DAILY JAMES Last Admin: 11/15/17 09:06 Dose: 0.4 mg Zolpidem Tartrate (Ambien) 5 mg PO HS PRN; Protocol PRN Reason: Insomnia Last Admin: 11/15/17 21:33 Dose: 5 mg - Labs Labs: 11/16/17 05:15 11/16/17 05:15 Assessment and Plan - Assessment and Plan (Free Text) Assessment: Dyspnea/Edema Ascites/S/P paracentesis RH Failure with Severe TR, Severe PH, Moderate MR and Mild /AI AF CKD Diverticulosis Hypospadia Plan: Diuresis GI and Heme evaluations Monitor I/O, labs, sats., weights, etc As per Dr. Louis
--- NOTE | 2017-11-17 08:58 | CP.PCM.PN ---
Subjective - Date & Time of Evaluation Date of Evaluation: 11/17/17 Time of Evaluation: 07:00 - Subjective Subjective: Stable on 2R. He feels better. No CP or SOB. V/S noted. AF PE: Lungs: rhonchi Cor.: irreg, S1S2, sys. murmur Abd.: soft Ext.: + edema Neuro.: alert I/O= 1960/1450 recorded Labs noted: H/H = 7.1/22.8, Cr. = 3.3 Echo: pending Objective - Vital Signs/Intake and Output Vital Signs (last 24 hours): Temp Pulse Resp BP Pulse Ox 98.5 F 73 20 116/65 97 11/17/17 06:00 11/17/17 06:00 11/17/17 06:00 11/17/17 06:00 11/17/17 06:00 Intake and Output: 11/17/17 11/17/17 06:59 18:59 Intake Total 1000 Output Total 1000 Balance 0 - Medications Medications: Current Medications Acetaminophen (Tylenol 325mg Tab) 650 mg PO Q6H PRN PRN Reason: Fever >100.4 F Last Admin: 11/17/17 01:05 Dose: 650 mg Furosemide (Lasix) 40 mg IVP Q12 JAMES Last Admin: 11/16/17 22:07 Dose: 40 mg Levothyroxine Sodium (Synthroid) 75 mcg PO 0600 JAMES Pantoprazole Sodium (Protonix Ec Tab) 40 mg PO 0600 JAMES Last Admin: 11/17/17 05:52 Dose: 40 mg Tamsulosin HCl (Flomax) 0.4 mg PO DAILY [facility] Last Admin: 11/16/17 10:16 Dose: 0.4 mg Zolpidem Tartrate (Ambien) 5 mg PO HS PRN; Protocol PRN Reason: Insomnia Last Admin: 11/15/17 21:33 Dose: 5 mg - Labs Labs: 11/17/17 05:15 11/17/17 05:15 Assessment and Plan - Assessment and Plan (Free Text) Assessment: Dyspnea/Edema Ascites/S/P paracentesis RH Failure with Severe TR, Severe PH, Moderate MR and Mild /AI AF CKD MDS/Anemia Diverticulosis Hypospadia Plan: Diuresis Will review echo GI and Heme evaluations/F/U A/C for AF: Need Heme input. CHADS = 3 but is it too risky? Monitor I/O, labs, sats., weights, etc As per Dr. Louis and Dr. Constantino
--- NOTE | 2017-11-17 09:08 | PN ---
SUBJECTIVE: The patient was seen and examined at bedside in the telemetry dempsey. No acute events overnight. He remains afebrile and hemodynamically stable. This morning he states he feels okay but reports some weakness in his lower extremities. He states that he has not yet ambulated, but otherwise offers no complaints. OBJECTIVE: VITAL SIGNS: Temperature 98.5, pulse 73, blood pressure 116/65, respiratory rate 20, and oxygen saturations 97% on room air. GENERAL: No apparent distress. HEENT: PERRL, EOMI. No scleral icterus. Conjunctival pallor is noted. NECK: No JVD. LUNGS: Decreased breath sounds at the bases with few scattered rhonchi. CARDIOVASCULAR: Irregularly irregular. Normal S1 and S2. Grade II/ systolic murmur to left upper sternal border. ABDOMEN: Normoactive bowel sounds. Soft, nontender, and nondistended. Paracentesis site appears clean, dry, and intact. EXTREMITIES: 1+ bilateral lower extremity edema with chronic venous stasis changes. NEUROLOGIC: Awake, alert, and oriented x3. No focal motor deficits. LABORATORY DATA: WBC 12.5 with 68% neutrophils, hemoglobin 7.1, hematocrit 23, and platelets 262. Sodium 132, potassium 4.2, chloride 94, bicarbonate 23, BUN 103, creatinine 3.3 , and glucose 164. TSH 13.2. ASSESSMENT: The patient is a 77 year old man with chronic diastolic heart failure with severe pulmonary hypertension, recurrent ascites secondary to underlying right heart failure, chronic kidney disease stage IV, anemia of chronic disease and myelodysplastic syndrome who presented for evaluation of a several day history of worsening lower extremity edema, orthopnea and exertional dyspnea who was admitted for management of ufuyt-du-tuohuho diastolic heart failure exacerbation. PLAN: 1. Dlhvw-se-wzumbkw diastolic heart failure exacerbation. The patient has lost 10 pounds since admission. Input from Dr. Danielle and Dr. Johns noted and appreciated. The patient remains on Lasix 40 mg IV q. 12 hours. A TTE is pending. 2. CKD stage IV. Renal function remains stable at baseline. Continue to renally dose medications, avoid nephrotoxins, monitor CMP daily. 3. AFib, new onset. The patient remains rate controlled. As above, an echocardiogram is ordered and pending. We will need to discuss fpc anticoagulation on this patient. 4. Hypothyroidism. Labs demonstrated TSH of 13. We will start Synthroid 75 mcg p.o. daily. 5. History of recurrent ascites secondary to underlying right heart failure. Continue with care as above. 6. Anemia of chronic disease. Labs demonstrates hemoglobin at the patient's baseline (7-8). We will continue to monitor CBC daily and transfuse as needed. The patient is followed by Dr. Constantion. 7. Myelodysplastic syndrome. As above, the patient will resume follow up with Dr. Constantino upon discharge. 8. Hypertension. Blood pressure controlled. We will continue to monitor hemodynamics and initiate antihypertensives as needed. 9. BPH. Continue Flomax 0.4 mg p.o. daily. 10. GERD. Continue Protonix 40 mg p.o. daily. 11. Prophylaxis. Continue Protonix for GI prophylaxis and SCDs for DVT prophylaxis. CODE STATUS: Full code. Jan Louis MD MTDD
--- NOTE | 2017-11-17 09:43 | CARD ---
APPROVED REPORT EXAM: Two-dimensional and M-mode echocardiogram with Doppler and color Doppler. Other Information Quality : AverageRhythm : INDICATION Congestive Heart Failure 2D DIMENSIONS Left Atrium (2D)5.1 (1.6-4.0cm)IVSd1.2 (0.7-1.1cm) LVDd5.1 (3.9-5.9cm)LVOT Diameter2.3 (1.8-2.4cm) PWd1.3 (0.7-1.1cm)LVDs3.8 (2.5-4.0cm) FS (%) 26.3 %LVEF (%)51.2 (>50%) M-Mode DIMENSIONS Aortic Root3.80 (2.2-3.7cm)Aortic Cusp Exc.1.30 (1.5-2.0cm) Aortic Valve AoV Peak Afspqgmc708.0cm/sAoV VTI55.8cmAO Peak GR.32mmHg LVOT Peak Gqmkrdyn33.0cm/sLVOT VTI18.90cmAO Mean GR.17mmHg NUPUR (VMAX)1.30wm3WHW (VTI)1.41cm2 Mitral Valve MV E Lolhtqqr634.0cm/sMV A Cbpgwexk84.4cm/sE/A ratio4.1 TDI E/Lateral E'0.0E/Medial E'0.0 Pulmonary Valve PV Peak Slcjxbnh80.3cm/sPV Peak Grad.3mmHg Tricuspid Valve TR Peak Zhhqcoqv060xy/sRAP FVJFLEZH19blBmMF Peak Gr.80mmHg OCON06rqJt LEFT VENTRICLE The left ventricle is normal size. There is normal left ventricular wall thickness. The left ventricular function is normal. The left ventricular ejection fraction is within the normal range. There is normal LV segmental wall motion. RIGHT VENTRICLE The right ventricle is moderately dilated. ATRIA The left atrium is moderately dilated. The right atrium is moderately dilated. The interatrial septum is intact with no evidence for an atrial septal defect. AORTIC VALVE The aortic valve is severely calcified. There is trace aortic regurgitation. There is moderate valvular aortic stenosis. MITRAL VALVE The mitral valve is moderately thickened but opens well. Mitral annular calcification is severe. Mitral regurgitation is moderate. TRICUSPID VALVE The tricuspid valve is normal in structure. There is severe tricuspid regurgitation. There is severe pulmonary hypertension. PULMONIC VALVE The pulmonary valve is normal in structure. GREAT VESSELS The aortic root is normal in size. PERICARDIAL EFFUSION There is no pericardial effusion. <Conclusion> The left ventricle is normal size. There is normal left ventricular wall thickness. The left ventricular function is normal. The right ventricle is moderately dilated. The left atrium is moderately dilated. The right atrium is moderately dilated. The aortic valve is severely calcified. There is moderate valvular aortic stenosis. There is trace aortic regurgitation. Mitral regurgitation is moderate. There is severe tricuspid regurgitation. There is severe pulmonary hypertension.
[2017-11-17] MEDS ORDERED: Darbepoetin Alfa 100 mcg/ml Inj SC ONE (14:40)
--- NOTE | 2017-11-18 02:17 | CON ---
DATE: HEMATOLOGY CONSULTATION HISTORY OF PRESENT ILLNESS: This is a 77-year-old man well known to me for a myelodysplastic anemia with excess blasts in his bone marrow. The patient has 2 major medical problems: 1. Bone marrow disorder, this is a preleukemia and is being treated with Procrit. He gets a Procrit 40,000 units weekly about 2 out of every 3 weeks and this has been maintaining his hemoglobin at about to an 8 range. There are other modalities to treat this disorder including Vidaza and Dacogen chemotherapy, but we had long talks with his sister, who is his primary caregiver and we made a decision not to give him this and does not and will be too difficult for him to take this. He has been really out of the hospital at this time, I think this is the first time he has been in the hospital. 2. Fluid overload. He has a renal disorder and he has right-sided heart failure, causing him to have severe ascites and severe leg edema. In the past, he has had paracentesis done, but not recently and we must have ruled out DVT in him in the past. PHYSICAL EXAMINATION SKIN: No petechiae and no bruises. HEENT: Anicteric. NODES: Nonpalpable in the axillary, cervical, supraclavicular or inguinal regions. LUNGS: At present are clear. No rales or rhonchi. HEART: S1 and S2. ABDOMEN: Shows ascites, but not much different from his usual. EXTREMITIES: Shows +3 edema. CENTRAL NERVOUS SYSTEM: No focal finding. LABORATORY DATA: At this point, his laboratory tests shows his white count is around 12, hemoglobin about 7, MCV of 82 and platelet count of 262. His BUN is 100 with a creatinine of 3.3 and I will leave that to Cardiology and Renal in terms of what amount is to give him in terms of Lasix. He is getting Procrit in the office and I will see if we can give Procrit here, one shot while he is here, but he knows to come to my office next week on Thursday for CBC and further evaluation. Andres Constantino MD [facility] # [id number]
[2017-11-18] MEDS: Pantoprazole 40 mg EC Tab PO SCH (05:39)
[2017-11-18] MEDS ORDERED: Levothyroxine 75 MCG TAB PO SCH (06:00)
[2017-11-18 06:31] VITALS: O2SAT 96
[2017-11-18 06:47] LABS: EOS # 0.2 (0.0-0.7); EOS % 1.5 % (1.5-5.0); MEAN CELL VOLUME 81.7 fl (80.0-105.0); MEAN CORPUSCULAR HEMOGLOBIN 25.4 pg (25.0-35.0); MEAN PLATELET VOLUME 8.6 fl (7.0-11.0); MONO # 2.3 (0.1-0.6); MONO % 14.9 % (1.0-6.0); PLATELET COUNT 270 10^3/uL (120.0-450.0); RBC 2.84 10^6/uL (3.5-6.1); RED CELL DISTRIBUTION WIDTH 18.3 % (11.5-14.5); WHITE BLOOD COUNT 15.7 10^3/ul (4.5-11.0)
[2017-11-18 07:17] LABS: ALBUMIN 3.3 g/dL (3.0-4.8); CALCIUM 8.2 mg/dL (8.4-10.5)
[2017-11-18 07:52] LABS: HEMOGLOBIN 7.2 g/dL (14.0-18.0)
--- NOTE | 2017-11-18 08:55 | PN ---
SUBJECTIVE: The patient was seen and examined at bedside on the telemetry dempsey. No acute events overnight. He remains afebrile and hemodynamically stable. This morning he reports persistent bilateral lower extremity pain but states that he is improving and is well controlled with his current analgesic regimen. Otherwise he feels okay overall and offers no complaints. OBJECTIVE: VITAL SIGNS: Temperature 99.2, pulse 78, blood pressure 137/76, respiratory rate 20, oxygen saturation 96% on room air. GENERAL: No apparent distress. HEENT: PERRL, EOMI. No scleral icterus. Conjunctival pallor is noted. NECK: No JVD. LUNGS: Decreased breath sounds at the bases with few scattered rhonchi. CARDIOVASCULAR: Irregularly regular. Normal S1 and S2. Grade II/ systolic murmur to the left upper sternal border. ABDOMEN: Normoactive bowel sounds. Soft, nontender, and nondistended. Paracentesis site appears clean, dry, and intact. EXTREMITIES: 1+ bilateral lower extremity edema with chronic venous stasis changes. NEUROLOGIC: Awake, alert, and oriented x3. No focal motor deficits. LABORATORY DATA: WBC 15.7, hemoglobin 7.2, hematocrit 23, and platelets 270. Sodium 130, potassium 4.1, chloride 92, bicarbonate 23, BUN 103, creatinine 3.4 , and glucose 169. ASSESSMENT: The patient is a 77 year old man with chronic diastolic heart failure with severe pulmonary hypertension, history of recurrent ascites secondary to underlying right heart failure, chronic kidney disease stage IV, anemia of chornic disease and myelodysplastic syndrome who presented for evaluation of a several day history of worsening lower extremity edema, orthopnea and exertional dyspnea and who was admitted for management of ifqwp-zh-qnjmrju diastolic heart failure exacerbation. PLAN: 1. Rckac-af-fjrcepq diastolic heart failure exacerbation. The patient has diuresed nicely since admission. We will change Lasix to 60 mg p.o. b.i.d. Input from Dr. Johns noted and greatly appreciated. 2. CKD stage IV. The patient's renal function remains stable. As above, we will change Lasix to 60 mg p.o. b.i.d. 3. AFib, new onset. The patient remains rate controlled. TTE demonstrates concentric LVH with normal LV function, severely calcified aortic valve, severe tricuspid regurg and severe pulmonary hypertension. 4. Hypothyroidism. Labs demonstrated TSH of 13. Continue Synthroid 75 mcg p.o. daily. We will need to repeat the TSH in 6 weeks. 5. History of recurrent ascites secondary to underlying right heart failure/ severe pulmonary hypertension. Continue with care as above. 6. Anemia of chronic disease. Labs demonstrated stable Hb at the patient's baseline (7-8). Continue to monitor CBC daily. Input from Dr. Constantino noted and greatly appreciated. 7. Myelodysplastic syndrome. The patient is followed by Dr. Constantino and we will resume follow upon discharge. 8. Hypertension. Blood pressure remains controlled. Continue to monitor hemodynamics and initiate antihypertensives as needed. 9. BPH. Continue Flomax 0.4 mg p.o. daily. 10. GERD. Continue Protonix 40 mg p.o. daily. 11. Prophylaxis. Continue Protonix for GI prophylaxis and SCDs for DVT prophylaxis. 12. Disposition. The patient is pending evaluation for subacute rehab. CODE STATUS: Full code. Jan Louis MD MTDJaylene
--- NOTE | 2017-11-18 10:35 | RAD ---
PROCEDURE: Right Knee Radiographs. HISTORY: Pain COMPARISON: None. FINDINGS: BONES: There increased bone density and the apparent herniated pattern in the periarticular region. There is no acute displaced fracture. Bone alignment is normal. JOINTS: There is mild tricompartmental degenerative osteoarthrosis with reduced joint spaces, marginal spurring and tibial spiking. SOFT TISSUES: The periarticular soft tissues are normal. JOINT EFFUSION: There is a moderate suprapatellar joint effusion. OTHER FINDINGS: There are advanced atherosclerotic vascular calcifications. IMPRESSION: 1. Diffuse decreased bone density in keeping with known myelodysplastic syndrome. No acute fracture or bone destruction. 2. Mild tricompartmental degenerative osteoarthrosis, worse in medial compartment and moderate suprapatellar joint effusion.
[2017-11-18 12:05] VITALS: BP 131/56; PULSE 60; RESP 18; TEMP 98.6
--- NOTE | 2017-11-18 12:45 | PN ---
DATE: 11/18/2017 SUBJECTIVE: The patient is seen lying in bed on telemetry. He is somnolent, but arousable. He is seen in the presence of his cousin, he offers no complaints. MEDICATIONS: His current medications remain Ambien p.r.n., Flomax, Lasix 60 mg b.i.d., Protonix 40 mg daily, and Synthroid 75 mcg daily. OBJECTIVE: GENERAL: He is an elderly man who appears somnolent, but arousable. VITAL SIGNS: His blood pressure is 136/76 with pulse of 70 to 80 in atrial fibrillation, and respirations are 14. He is afebrile. HEENT: No JVD. CHEST: Bilateral scattered rhonchi. HEART: PMI displaced laterally with a systolic murmur at the base as well as at the apex. GASTROINTESTINAL: The abdomen is soft and nontender with normoactive bowel sounds. EXTREMITIES: 1+ bilateral lower extremity edema present. DIAGNOSTIC DATA: Sodium is 130, potassium is 4.1, and BUN and creatinine are 103 and 3.4. White count is 15.7 and hemoglobin and hematocrit of 7.2 and 23.2 with platelet count of 270,000. TSH was 13.2. IMPRESSION: 1. Right-sided heart failure likely multifactorial. 2. Chronic ascites status post paracentesis. 3. Chronic atrial fibrillation. 3. Severe anemia with a myelodysplastic syndrome. 4. Chronic renal insufficiency. RECOMMENDATIONS: His current medications should continue for now. His echocardiogram was reviewed and confirmed evidence of normal LV systolic function with concentric LVH and multivalvular heart disease including moderate aortic stenosis, moderate mitral regurgitation and severe tricuspid regurgitation with an estimated right ventricle systolic pressure of 90 mmHg. He obviously has increased risk of stroke and thromboembolic events given his atrial fibrillation and other risks factors, however, risk and benefit of anticoagulation may be excessive given his condition and other issues. Conservative care appears most appropriate. We will continue to follow and make further recommendation as appropriate. Trace Danielle MD
== END 2017-11-18 18:50 | DRG 291 ==
LOC: ED 23:37 → ERH 11-14 02:13 → 2RSO 11-14 04:20
PROVIDERS: ADMIT Internal Medicine; ATTEND Internal Medicine
DX: I13.0 Hypertensive heart and chronic kidney disease with heart failure and stage 1 through stage 4 chronic kidney disease, or unspecified chronic kidney disease (principal); I50.33 Acute on chronic diastolic (congestive) heart failure; N18.4 Chronic kidney disease, stage 4 (severe); R18.8 Other ascites; I27.29 Other secondary pulmonary hypertension; I48.2 Chronic atrial fibrillation; D63.8 Anemia in other chronic diseases classified elsewhere; I08.3 Combined rheumatic disorders of mitral, aortic and tricuspid valves; D46.9 Myelodysplastic syndrome, unspecified; K21.9 Gastro-esophageal reflux disease without esophagitis; N40.0 Benign prostatic hyperplasia without lower urinary tract symptoms; E03.9 Hypothyroidism, unspecified; K57.90 Diverticulosis of intestine, part unspecified, without perforation or abscess without bleeding; Z87.891 Personal history of nicotine dependence

== ENCOUNTER 2017-11-30 17:12 | Inpatient (IN) | payer MEDICARE, BC ==
[2017-11-30 17:12] VITALS: BMI 22.9
--- NOTE | 2017-11-30 19:18 | ED PDOC ---
Arrival/HPI <Celestine Moreno - Last Filed: 11/30/17 21:33> - General Historian: Patient, Family - History of Present Illness Time/Duration: Other (see hpi) Context: Home <Denny Casey - Last Filed: 12/01/17 18:40> - General Chief Complaint: GI Problem Time Seen by Provider: 11/30/17 19:12 - History of Present Illness Narrative History of Present Illness (Text): 11/30/17 19:18 A 77 year old male, whose past medical history includes CHF, was brought into the emergency department by EMS for coughing up blood. Patient came with sister who stated patient was at [facility]/rehab x 7 days. Sister stated patient was found to have blood on his mouth. (Denny Casey) Past Medical History - Provider Review Nursing Documentation Reviewed: Yes - Infectious Disease Hx of Infectious Diseases: None - Cardiac Hx Cardiac Disorders: Yes (Pulmonary hypertension) Hx Cardiac Arrhythmia: Yes (Afib) Hx Congestive Heart Failure: Yes - Pulmonary Hx Respiratory Disorders: No - Neurological Hx Paralysis: No - Renal Hx Renal Disorder: Yes - Hematological/Oncological Hx Blood Disorders: Yes (Myelodysplastic syndrome) Hx Anemia: Yes - Integumentary Hx Dermatological Disorder: Yes - Musculoskeletal/Rheumatological Hx Falls: No - Gastrointestinal Hx Gastrointestinal Disorders: Yes (Left inguinal hernia, acites) Hx Diverticulitis: Yes - Psychiatric Hx Emotional Abuse: No Hx Physical Abuse: No Hx Substance Use: No - Surgical History Other/Comment: egd/colonoscopy polypectomy benign, sclerotherapy, clipping - Anesthesia Hx Anesthesia: Yes Hx Anesthesia Reactions: No Hx Malignant Hyperthermia: No - Suicidal Assessment Feels Threatened In Home Enviroment: No <Denny Casey - Last Filed: 12/01/17 18:40> Family/Social History - Physician Review Nursing Documentation Reviewed: Yes Family/Social History: Other (noncontributory) Smoking Status: Unknown If Ever Smoked Hx Alcohol Use: Yes (OCCASIONAL BEER) Hx Substance Use: No <Denny Casey - Last Filed: 12/01/17 18:40> Allergies/Home Meds <Celestine Moreno - Last Filed: 11/30/17 21:33> <Denny Casey - Last Filed: 12/01/17 18:40> Allergies/Adverse Reactions: Allergies No Known Allergies Allergy (Verified 04/26/17 06:34) Home Medications: Home Meds Medication Instructions Recorded Confirmed Furosemide [Lasix] 80 mg PO BID 12/18/16 04/26/17 Potassium Chloride [K-Dur 20] 20 meq PO DAILY 01/14/17 04/26/17 Thiamine Mononitrate [Optimum 100 mg PO DAILY 01/14/17 04/26/17 Vitamin B-1] Pantoprazole [Protonix] 40 mg PO 12/01/17 Tamsulosin [Flomax] 0.4 PO DAILY 12/01/17 Review of Systems - Review of Systems Constitutional: Normal Eyes: Normal ENT: Normal Respiratory: Normal Cardiovascular: Normal Gastrointestinal: Hematemesis Genitourinary Male: Normal Musculoskeletal: Normal Skin: Normal Neurological: Normal Endocrine: Normal Hemo/Lymphatic: Normal Psychiatric: Normal <Denny Casey P - Last Filed: 12/01/17 18:40> Physical Exam Temperature: Afebrile Blood Pressure: Normal Pulse: Regular Respiratory Rate: Normal Appearance: Positive for: Well-Appearing, Non-Toxic, Comfortable Pain Distress: None Mental Status: Positive for: other (Patient is alert and oriente to place, and person. Family member at bedside) - Systems Exam Head: Present: Atraumatic, Normocephalic Pupils: Present: PERRL Extroacular Muscles: Present: EOMI Conjunctiva: Present: Normal Mouth: Present: Moist Mucous Membranes, Normal Lips, Normal Tounge. No: Drooling, Trismus Neck: Present: Normal Range of Motion. No: Meningeal Signs, MIDLINE TENDERNESS Respiratory/Chest: Present: Clear to Auscultation, Good Air Exchange. No: Respiratory Distress, Accessory Muscle Use Cardiovascular: Present: Regular Rate and Rhythm, Normal S1, S2. No: Murmurs Abdomen: Present: Normal Bowel Sounds. No: Tenderness, Distention, Peritoneal Signs Back: Present: Normal Inspection Upper Extremity: Present: NORMAL PULSES, Capillary Refill < 2s, Other (right shoulder pain, chronic as per family). No: Cyanosis, Edema Lower Extremity: Present: Normal ROM, Other (Chronic b/l knee pain, as per familly). No: Edema Neurological: Present: GCS=15, CN II-XII Intact, Speech Normal, Motor Func Grossly Intact, Normal Sensory Function Skin: Present: Warm, Dry, Normal Color. No: Rashes Psychiatric: Present: Alert, Oriented x 3, Normal Insight, Normal Concentration <CaseyDenny bruner - Last Filed: 12/01/17 18:40> Vital Signs Temp Pulse Resp BP Pulse Ox 11/30/17 23:29 79 18 114/52 L 98 11/30/17 22:06 110/55 L 11/30/17 18:02 98.6 F 77 18 138/57 L 98 Medical Decision Making <Celestine Moreno - Last Filed: 11/30/17 21:33> Re-evaluation Time: 21:21 Reassessment Condition: Re-examined, Improving,but remains with symptoms <Denny Casey - Last Filed: 12/01/17 18:40> ED Course and Treatment: 11/30/17 21:20 I spoke with Florence WELCH, regarding patient symptoms, labs results, Chest X-ray. He agreed with plan for admission on Telemetry. (Denny Casey) - Lab Interpretations Lab Results: 11/30/17 19:30 11/30/17 19:30 Lab Results 11/30/17 19:30: Ammonia < 9 L 11/30/17 19:30: Sodium 137, Potassium 6.3 H* D, Chloride 105, Carbon Dioxide 19 L, Anion Gap 19, BUN 141 H*, Creatinine 3.1 H, Est GFR ( Amer) 24, Est GFR (Non-Af Amer) 20, Random Glucose 249 H, Calcium 9.3, Total Bilirubin 0.6, AST 53, ALT 45, Alkaline Phosphatase 268 H D, Lactate Dehydrogenase 2006 H, Total Creatine Kinase 99, Troponin I 0.03 D, NT-Pro-B Natriuret Pep 11916 H, Total Protein 6.4, Albumin 3.2, Globulin 3.2, Albumin/Globulin Ratio 1.0 L 11/30/17 19:30: PT 14.6 H, INR 1.27 H, APTT 31.1 11/30/17 19:30: WBC 13.0 H, RBC 2.65 L, Hgb 6.8 L*, Hct 21.9 L, MCV 82.6, MCH 25.7, MCHC 31.1, RDW 18.4 H, Plt Count 283, MPV 9.1, Stephenson % (Auto) Management Nurse Rn, Eos % ( Auto) Management Nurse Rn, Baso % (Auto) Management Nurse Rn, Stephenson # (Auto) Management Nurse Rn, Eos # (Auto) Management Nurse Rn, Baso # (Auto) Management Nurse Rn , Neutrophils % (Manual) 71 H, Band Neutrophils % 4 H, Lymphocytes % (Manual) 14 L, Atypical Lymphs % 3 H, Monocytes % (Manual) 2, Metamyelocytes % 3, Myelocytes % 3, Toxic Granulation 1+, Platelet Evaluation Normal, Hypochromasia 1+, Anisocytosis (manual) 1+, Microcytosis (manual) 1+ - RAD Interpretation Radiology Orders: 11/30/17 19:14 CHEST PORTABLE [RAD] Stat - Medication Orders Current Medication Orders: Sodium Chloride (Sodium Chloride 0.9%) 1,000 mls @ 70 mls/hr IV .[id number] [facility] Last Admin: 12/01/17 01:17 Dose: 70 mls/hr eMAR Start Stop Document 12/01/17 01:17 FDE (Rec: 12/01/17 01:17 [email or web address] Intravenous Solution Start Date 12/01/17 Start Time 01:17 Sodium Bicarbonate 50 meq/ (Dextrose) 1,050 mls @ 60 mls/hr IV .[id number] [facility] Last Admin: 12/01/17 15:40 Dose: 60 mls/hr eMAR Start Stop Document 12/01/17 15:40 JJ (Rec: 12/01/17 15:40 JJ [email or web address] Intravenous Solution Start Date 12/01/17 Start Time 15:40 End Date 12/02/17 Insulin Human Regular (Humulin R Med) 0 units SC ACHS [facility] PRN Reason: Protocol Last Admin: 12/01/17 17:59 Dose: Levothyroxine Sodium (Synthroid) 75 mcg PO 0600 [facility] Last Admin: 12/01/17 04:59 Dose: 75 mcg Pantoprazole Sodium (Protonix Ec Tab) 40 mg PO DAILY [facility] Last Admin: 12/01/17 09:25 Dose: 40 mg Discontinued Medications Albuterol Sulfate (Albuterol 0.083% Inhal Shayy (2.5 Mg/3 Ml) Ud) 10 mg INH STAT STA Stop: 11/30/17 21:04 Last Admin: 11/30/17 22:06 Dose: 10 mg Desmopressin Acetate (Ddavp) 20 mcg IVP ONCE ONE Stop: 11/30/17 21:16 Last Admin: 11/30/17 22:08 Dose: 20 mcg IVP Administration Document 11/30/17 22:08 EQ (Rec: 11/30/17 22:08 EQ [id number]) Charges for Administration # of IVP Administrations 1 Dextrose (Dextrose 50% Inj) 50 ml IVP STAT STA Stop: 11/30/17 20:48 Last Admin: 11/30/17 21:59 Dose: 50 ml IVP Administration Document 11/30/17 21:59 EQ (Rec: 11/30/17 21:59 EQ [id number]) Charges for Administration # of IVP Administrations 1 Furosemide (Lasix) 40 mg IVP STAT STA Stop: 11/30/17 20:48 Last Admin: 11/30/17 22:06 Dose: Not Given Non-Admin Reason: BP Parameters Not Met MAR Blood Pressure Document 11/30/17 22:06 EQ (Rec: 11/30/17 22:06 EQ [id number]) Blood Pressure Blood Pressure (100/60-150/90) 110/55 IVP Administration Document 11/30/17 22:06 EQ (Rec: 11/30/17 22:06 EQ [id number]) Charges for Administration # of IVP Administrations 1 Insulin Human Regular (Humulin R) 10 units IVP ONCE ONE Stop: 11/30/17 20:48 Last Admin: 11/30/17 21:59 Dose: 10 units IVP Administration Document 11/30/17 21:59 EQ (Rec: 11/30/17 21:59 EQ [id number]) Charges for Administration # of IVP Administrations 1 Sodium Polystyrene Sulfonate (Kayexalate Susp) 30 gm PO STAT STA Stop: 11/30/17 21:04 Last Admin: 11/30/17 22:06 Dose: 30 gm - PA / NETWORKING TECHNICIAN / Resident Statement SHELLI has reviewed & agrees with the documentation as recorded. SHELLI has examined the patient and agrees with the treatment plan. <Celestine Moreno - Last Filed: 11/30/17 21:33> Disposition/Present on Arrival <Celestine Moreno - Last Filed: 11/30/17 21:33> - Present on Arrival Any Indicators Present on Arrival: No History of DVT/PE: No History of Uncontrolled Diabetes: No Urinary Catheter: Yes (Placed in the ER) History of Decub. Ulcer: No History Surgical Site Infection Following: None - Disposition Have Diagnosis and Disposition been Completed?: Yes Disposition Time: 21:22 Patient Plan: Admission <Denny Casey - Last Filed: 12/01/17 18:40> - Disposition Diagnosis: Anemia, CHF exacerbation, GI bleeding Disposition: HOSPITALIZED Patient Problems: Current Active Problems Problem Status Onset Anemia Acute CHF exacerbation Acute GI bleeding Acute Condition: STABLE
[2017-11-30 20:07] LABS: MEAN CELL VOLUME 82.6 fl (80.0-105.0); MEAN CORPUSCULAR HEMOGLOBIN 25.7 pg (25.0-35.0); MEAN CORPUSCULAR HGB CONC 31.1 g/dl (31.0-37.0); MEAN PLATELET VOLUME 9.1 fl (7.0-11.0); PLATELET COUNT 283 10^3/uL (120.0-450.0); RBC 2.65 10^6/uL (3.5-6.1); RED CELL DISTRIBUTION WIDTH 18.4 % (11.5-14.5)
[2017-11-30 20:08] LABS: ALBUMIN 3.2 g/dL (3.0-4.8); CALCIUM 9.3 mg/dL (8.4-10.5)
[2017-11-30 20:09] LABS: HEMOGLOBIN 6.8 g/dL (14.0-18.0)
[2017-11-30 20:16] LABS: TROPONIN I 0.03 ng/mL
[2017-11-30 20:28] LABS: INR 1.27 (0.93-1.08); PARTIAL THROMBOPLASTIN TIME 31.1 Seconds (25.1-36.5); PROTHROMBIN TIME 14.6 SECONDS (9.4-12.5)
[2017-11-30] MEDS ORDERED: Dextrose 50% SYRINGE Inj (50 ml) IVP STA (20:47)
[2017-11-30] MEDS ORDERED: Insulin Regular 1 UNITS/0.01 ML ML IVP ONE (20:47)
[2017-11-30] MEDS ORDERED: Albuterol 0.083% Inhal Sol (2.5 mg/3 mL) UD INH STA (21:03)
[2017-11-30] MEDS ORDERED: Sod Polystyrene Sulf 15 gm/60 ml Susp PO STA (21:03)
[2017-11-30] MEDS ORDERED: Desmopressin 4 mcg/ml Inj (1 ml) IVP ONE (21:15)
[2017-11-30 21:25] LABS: ATYPICAL LYMPHOCYTE 3 % (0.0-0.0); BAND 4 % (0-2); LYMPHOCYTE 14 % (22.0-35.0); METAMYELOCYTE 3 %; MONOCYTE 2 % (1.0-6.0); NEUTROPHIL 71 % (50.0-70.0)
[2017-11-30 21:26] LABS: MYELOCYTE 3 %; PLATELET ESTIMATE NORMAL (NORMAL)
[2017-11-30 21:27] LABS: ANISOCYTOSIS 1+; HYPOCHROMIA 1+; MICROCYTOSIS 1+; TOXIC GRANULATION 1+
[2017-11-30 22:20] LABS: VENOUS BLOOD GAS BASE EXCESS -8.5 mmol/L (0.0-2.0); VENOUS BLOOD GAS PO2 54 mm/Hg (30-55); VENOUS BLOOD PH 7.29 (7.32-7.43)
[2017-11-30] MEDS ORDERED: Sodium Chloride 0.9% 1,000 ML IV SCH (23:15)
[2017-12-01 04:01] LABS: PH,URINE 5.5 (4.7-8.0); URINE BILIRUBIN NEGATIVE (NEGATIVE); URINE BLOOD LARGE (NEGATIVE); URINE GLUCOSE (UA) NEGATIVE (NEGATIVE); URINE LEUKOCYTE ESTERASE NEGATIVE Leu/uL (NEGATIVE); URINE NITRATE NEGATIVE (NEGATIVE); URINE PROTEIN TRACE mg/dL (<30 mg/dL); URINE UROBILINOGEN 0.2 E.U./dL (<1 E.U./dL)
[2017-12-01 04:25] LABS: URINE APPEARANCE SL CLOUDY (CLEAR); URINE COLOR YELLOW (YELLOW)
[2017-12-01 04:47] LABS: URINE BACTERIA FEW (NEG); URINE EPITHELIAL CELLS 0 - 2 /hpf (0-5); URINE WBC 0 - 2 /hpf (0-6)
[2017-12-01] MEDS: Levothyroxine 75 MCG TAB PO SCH (04:59)
--- NOTE | 2017-12-01 08:48 | RAD ---
HISTORY: Hemoptysis COMPARISON: 11/14/2017. FINDINGS: LUNGS: The lungs are clear. PLEURA: No significant pleural effusion identified, no pneumothorax apparent. CARDIOVASCULAR: Again seen is severe cardiomegaly. OSSEOUS STRUCTURES: No significant abnormalities. VISUALIZED UPPER ABDOMEN: Normal. OTHER FINDINGS: None. IMPRESSION: No active pulmonary disease. Persistent severe cardiomegaly.
[2017-12-01] MEDS: Pantoprazole 40 mg EC Tab PO SCH (09:25)
--- NOTE | 2017-12-01 10:14 | CARD ---
APPROVED REPORT EKG Measurement Heart [id number] <Conclusion> Atrial fibrillation LAD RVCD No change
--- NOTE | 2017-12-01 11:21 | CON ---
DATE: 12/01/2017 CONSULTATION INDICATIONS: Hematemesis, anemia, atrial fibrillation, congestive heart failure. HISTORY OF PRESENT ILLNESS: This is a 77-year-old man, known to us from a recent [facility] admission, who was brought in from [facility] because of hematemesis/hemoptysis. Apparently, he coughed up blood. Blood was found in his mouth and he was brought to the hospital. He was not observed to be actively bleeding, however. His hemoglobin was low. He is getting a blood transfusion. He does not complain of chest pain or shortness of breath. He is edematous with ascites and severe right heart failure. He is a limited historian. PAST MEDICAL HISTORY: Notable for myelodysplastic syndrome with severe anemia. He has right heart failure with ascites and edema. He underwent paracentesis during the last admission. Echocardiography revealed mild LV dysfunction, moderate mitral regurgitation, severe tricuspid regurgitation and severe pulmonary hypertension. He has a history of hypertension, chronic kidney disease, atrial fibrillation. He is a former smoker. He is mentally challenged. There is no history of myocardial infarction, angina, stroke, TIA or diabetes. MEDICATIONS AT THE TIME OF ADMISSION: Include Flomax, KCl, Lasix, Protonix, vitamin B1. ALLERGIES: THERE ARE NO KNOWN MEDICATION ALLERGIES. SOCIAL HISTORY: He was at [facility]. He is a former smoker, former drinker. FAMILY HISTORY: Noncontributory. REVIEW OF SYSTEMS: Ten-point review of systems is limited. PHYSICAL EXAMINATION: GENERAL: Physical examination revealed an elderly male, lying on a stretcher in the emergency room and in no acute distress, getting a blood transfusion. VITAL SIGNS: Notable for atrial fibrillation in the 70s, afebrile, blood pressure 106/58, respirations 18-20, O2 sat 98% on room air. HEENT: Reveals neck vein distention. No thyromegaly. No carotid bruit. Mucous membranes moist. Conjunctivae pale. NECK: Supple. LUNGS: Lung malone, diminished breath sounds at the bases. HEART: Examination of the heart revealed an irregular rhythm. There is a systolic murmur along the left sternal border and at the apex. PMI is displaced. ABDOMEN: Soft. There is ascites present. EXTREMITIES: Revealed moderately severe lower extremity edema. NEUROLOGIC: He was awake and alert. PSYCHIATRIC: Exam is limited. SKIN: Warm and dry. No rash or cellulitis. LABORATORY AND IMAGING: The chest x-ray is a portable study. There is cardiomegaly. Clear lung malone. No pleural effusion. No infiltrate by my reading. It is not officially read yet. White count 13,000, hemoglobin 6.8, hematocrit 21.9, platelet count 283,000. PT 14.6, INR 1.27, PTT 31.1. Blood gases are noted. Electrolytes notable for potassium of 6.3, BUN 141, creatinine 3.1, blood sugar 249. LFTs normal except for alk phos of 268, ammonia is less than 9. CK is 99, troponin 0.03, BNP is 22,800. Urinalysis is noted. IMPRESSION: Conner Minor is a 77-year-old man, admitted with severe anemia, possibly hematemesis or hemoptysis, uncertain, limited historian with known right heart failure with severe pulmonary hypertension, severe tricuspid regurgitation, ascites which has been tapped and edema. At this time, he presents with chronic renal failure and hyperkalemia as well. He will be admitted to a telemetry unit. He is being treated for hyperkalemia. Renal consultation has been ordered. He will be seen by Dr. Constantino and Dr. Sandoval. I will review his old records and echocardiogram. He will be on telemetry. We will monitor inputs and outputs and daily weights. We will check stool for occult blood. Monitor H and H. I will follow along with you. I will make additional recommendations based on his clinical course. Ancelmo Johns MD EMIL
--- NOTE | 2017-12-01 11:37 | CON ---
DATE: 12/01/2017 PULMONARY CONSULTATION REASON FOR CONSULTATION: Pulmonary hypertension. REFERRING PHYSICIAN: Jan Louis MD HISTORY OF PRESENT ILLNESS: History is obtained via extensive discussion with the night nurse. I have also reviewed the chart at length. The patient is currently confused, not an adequate historian. The patient is a chronically ill 77-year-old male, with past medical history significant for congestive heart failure, severe chronic kidney disease, chronic anemia, advanced myelodysplastic syndrome, severe pulmonary hypertension, who presented to [facility] - transferred from [facility] - after an episode of vomiting blood. In the emergency room, the patient was noted to be very anemic. Additional evaluation also revealed multiple electrolyte abnormalities. The patient was thus admitted for additional evaluation. Again, I did discuss the case with the night nurse at length. The night nurse states that she has NOT observed any shortness of breath, cough, or sputum production. There is no history of chest pain, coughing up of blood, or chest pain - made worse with deep respirations. There is no history of temperatures, chills or infectious exposure. There is no history of night sweats, weight loss or appetite change prior to the above events. No history of calf pains. No history of syncope or diaphoresis. No history of recent travel or trauma. REVIEW OF SYSTEMS: No history of abdominal pain or diarrhea. No acute urinary symptoms. No new musculoskeletal complaints. Rest of the review of systems negative. ALLERGIES: NO KNOWN ALLERGIES. SOCIAL HISTORY: Positive for tobacco and negative for alcohol. FAMILY HISTORY: No inheritable diseases. HOME MEDICATIONS: Include Flomax, Protonix, thiamine, potassium, Lasix. PHYSICAL EXAMINATION GENERAL: The patient appears comfortable at rest. He is not short of breath. VITAL SIGNS: Temperature is 98.1, pulse is 63, respirations 18/20, blood pressure 106/58. Oxygen saturation on room air is 98%. HEENT: Normocephalic, atraumatic. No JVD. CARDIOVASCULAR: Systolic ejection murmur at the lower left sternal border. Questionable S3 gallop. LUNGS: Decreased breath sounds at the bases. No rhonchi. No wheezing. EXTREMITIES: No clubbing, cyanosis or edema. Calves are nontender to palpation. GI: Abdomen is soft, nontender and nondistended. Bowel sounds are positive. SKIN: No acute rash. NEUROLOGIC: Limited at the present time. PERTINENT LABORATORY DATA: Chest x-ray was done and reviewed. The film is somewhat rotated. However, there are no significant infiltrates. The left hemidiaphragm is chronically elevated due to gaseous distention. Complete metabolic profile: Potassium 6.3, carbon dioxide 19, BUN 141, creatinine 3.1, glucose 249, alkaline phosphatase 268, LDH 2006. B-type natriuretic peptide 58651. Rest of the metabolic profiles within normal limits. CBC: White count 13.0, hemoglobin 6.8, hematocrit 21.9, platelets of 283,000. IMPRESSION: 1. Hematemesis 2. Chronic anemia. 3. Acute on chronic kidney disease. 4. Congestive heart failure. 5. Pulmonary hypertension. 6. Myelodysplastic syndrome. PLAN: Again, I did discuss the case with the night nurse at length. The night nurse does relate the history of hematemesis at the assisted. Again, as above, the night nurse has not observed any pulmonary symptoms during her shift. I did review the laboratory data. The patient's hemoglobin is pretty much at his baseline. I also reviewed the chest x-ray. The chest x-ray shows no acute/significant changes. The patient does present with the history of severe pulmonary hypertension. He did have an echocardiogram during the last admission - which showed a right ventricular systolic pressure of 90 mmHg. At this point in time, the patient's treatment for his pulmonary hypertension is not listed in the home medications. I will check for additional history with Dr. Louis. Consultations for Hematology, Cardiology, and Renal have been ordered. Clinical status of the patient appears improved this morning - compared to the last day or so. However, the patient's overall status/prognosis remains very guarded. I will discuss the above with Dr. Louis this morning. Thank you very much for this pulmonary consultation. Carlos Sandoval MD MTDD
[2017-12-01 11:58] LABS: HEMOGLOBIN 7.8 g/dL (14.0-18.0); MEAN CELL VOLUME 83.7 fl (80.0-105.0); MEAN CORPUSCULAR HEMOGLOBIN 26.4 pg (25.0-35.0); MEAN CORPUSCULAR HGB CONC 31.6 g/dl (31.0-37.0); MEAN PLATELET VOLUME 9.4 fl (7.0-11.0); PLATELET COUNT 207 10^3/uL (120.0-450.0); RBC 2.95 10^6/uL (3.5-6.1); RED CELL DISTRIBUTION WIDTH 17.4 % (11.5-14.5); WHITE BLOOD COUNT 10.3 10^3/ul (4.5-11.0)
[2017-12-01 12:20] LABS: ALB/GLOB RATIO 0.9 (1.1-1.8); ALBUMIN 2.9 g/dL (3.0-4.8); CALCIUM 8.5 mg/dL (8.4-10.5)
[2017-12-01] MEDS: Sodium Bicarbonate 8.4% 50 MEQ in Dextrose 5% In Water 1,000 ML IV SCH (15:40)
--- NOTE | 2017-12-01 17:01 | US ---
PROCEDURE: Ultrasound of the Kidneys HISTORY: ARF, CKD4, Check kidney size and echogenicity COMPARISON: None available. TECHNIQUE: Sonogram of the kidneys. FINDINGS: RIGHT KIDNEY: Measures: 10.1 cm. Normal in size, contour and echogenicity. No stone, solid mass lesion or hydronephrosis visualized. LEFT KIDNEY: Measures: 10.7 cm. Normal in size, contour and echogenicity. No stone, solid mass lesion or hydronephrosis visualized. OTHER FINDINGS: None. IMPRESSION: Unremarkable renal sonogram.
[2017-12-01] MEDS: Insulin Reg-MEDIUM-Coverage SC SCH ×2 (17:59→22:41)
--- NOTE | 2017-12-01 22:39 | HP ---
HISTORY OF PRESENT ILLNESS: The patient is a 77 year old man with a past medical history of myelodysplastic syndrome, anemia of chronic disease, chronic diastolic heart failure, severe pulmonary hypertension and CKD stage IV (baseline creatinine 3.5-4) who was recently discharged from [facility] after an admission for acute on chronic diastolic heart failure exacerbation who was sent from [facility] for evaluation of 2 episodes of epistaxis, gingival bleeding and reported hemoptysis. The patient was reportedly doing well at [facility] when he was noted by his nurse to have mild bleeding from his oropharynx. Examination disclosed scant blood that was mostly dry with no evidence of active bleed. Given that it was noted on 2 occasions, he was sent to the ED for further evaluation. Upon arrival to the ED he was noted to be afebrile and hemodynamically stable. No evidence of active bleeding was noted and laboratory studies demonstrated a hemoglobin at his baseline. He was, however, found to be hyperkalemic with a potassium of 6.3 and no EKG changes were noted. He was also found to have a markedly elevated BUN of 141. Given his family's concern for his bleeding, as well as his multiple electrolyte derangements, the patient was admitted for continued management of epistaxis, hyperkalemia, and CKD. PAST MEDICAL HISTORY: As per HPI, also hypertension, recurrent ascites secondary to severe underlying right heart failure/severe pulmonary hypertension, atrial fibrillation, hypothyroidism, BPH, GERD. PAST SURGICAL HISTORY: Placement of abdominal paracentesis port. ALLERGIES: NKDA. MEDICATIONS: Omeprazole 40 mg p.o. daily, Flomax 0.4 mg p.o. daily, Lasix 80 mg p.o. b.i.d., Synthroid 75 mcg p.o. daily, and multivitamin 1 tablet p.o. daily. FAMILY HISTORY: Significant for hypertension and malignancy in both parents (the patient is unclear as to what type of cancer). SOCIAL HISTORY: The patient reports a former [id number] smoking history, but quit several years ago. He reports former daily alcohol use consisting of 5-6 beers daily and denies illicit drug abuse. REVIEW OF SYSTEMS: A 14-point review of systems is negative except as per HPI. PHYSICAL EXAMINATION: VITAL SIGNS: Temperature 97.8, pulse 70, blood pressure 107/51, respiratory rate 18, oxygen saturation 97% on room air. GENERAL: No apparent distress. HEENT: PERRL. EOMI. No scleral icterus. Mild conjunctival pallor is noted. NECK: No JVD, no bruits. LUNGS: Decreased breath sounds at the bases with few scattered rhonchi. CARDIOVASCULAR: Regular rate and rhythm. Normal S1 and S2. Grade 2/6 systolic murmur to the left upper sternal border. ABDOMEN: Soft, nontender, mildly distended. No rigidity, no tympany. Paracentesis access appears clean, dry and intact. EXTREMITIES: 1+ bilateral lower extremity edema with chronic venous stasis changes. NEUROLOGIC: Awake, alert, and oriented x3. No focal motor deficits. ASSESSMENT: The patient is a 77 year old man with multiple medical comorbidities including chronic diastolic heart failure with severe pulmonary hypertension, history of recurrent ascites secondary to underlying right heart failure, CKD stage IV, anemia of chronic disease, myelodysplastic syndrome, atrial fibrillation and hypothyroidism who was sent from [facility] for evaluation of 2 episodes of epistaxis and who was admitted for management of hyperkalemia, RAYMOND on CKD and reported epistaxis. PLAN: 1. Epistaxis, etiology likely secondary to underlying platelet dysfunction secondary to uremia, as the patient was noted to have a profoundly elevated BUN of 141. The patient received Desmopressin 20 mcg IV x 1. The patient has not had any witnessed bleeding episodes since presentation to the ED and his H/H remain stable at his baseline. We will continue to monitor CBC daily and monitor for any further bleeding. We will place the patient on aspiration precautions. 2. Myelodysplastic syndrome. Dr. Constantino of Hematology/Oncology has been consulted, as he follows the patient closely on an outpatient basis. 3. Anemia of chronic disease, secondary to the patient's underlying MDS. Labs demonstrate H/H at the patient's baseline. He has been typed and crossmatched for 2 units of PRBCs and is actively being transfused his second unit. We will continue to monitor CBC daily. 4. Hyperkalemia. The patient is status post treatment with intravenous insulin , dextrose and Kayexalate. Repeat CMP is pending. 5. CKD stage IV. Labs demonstrate renal function near the patient's baseline. The patient was previously followed by Dr. Mchugh. We will consult Dr. Ozuna for further evaluation and recommendations. 6. Acute on chronic diastolic heart failure exacerbation. Labs demonstrate a BNP of 22,800 (previously 33,900 on his prior discharge). We will consult Dr. Daneille of Cardiology for further evaluation and recommendations. 7. Severe pulmonary hypertension. Dr. Sandoval has been consulted to evaluate for the possibility of initiating therapy for the patient's severe underlying pulmonary hypertension however the patient will likely require cardiac catheterization prior to initiating therapy. 8. Hypothyroidism. Resume Synthroid 75 mcg p.o. daily. 9. Hypertension. Blood pressure remains on the lower side. We will hold antihypertensives at present and continue to monitor hemodynamics. 10. BPH. The patient remains with a Hickman catheter in place and given his slightly low blood pressure readings, we will hold Flomax 0.4 mg p.o. daily at present. 11. GERD. Resume Protonix 40 mg p.o. daily. 12. History of recurrent ascites secondary to underlying right heart failure/ severe pulmonary hypertension. The patient has an abdominal paracentesis port in place, which can be utilized as needed. 13. Prophylaxis. Continue Protonix for GI prophylaxis, and SCDs for DVT prophylaxis. CODE STATUS: Full code. Jan Louis MD MTDD
--- NOTE | 2017-12-02 00:31 | CON ---
DATE: HISTORY OF PRESENT ILLNESS: This is a 77-year-old man. He has multiple medical problems; 1. He has, for which I am following him, a myelodysplastic preleukemia syndrome for which his usual hemoglobin is around 7.5, between 7.5 and 8, with a low white count and a low platelet count, and he has increased leftward shift and blast in his bone marrow. I have been giving him Procrit 60,000 units every other week to try to keep it stable, and I have really not been giving too many blood transfusions over this last year that we are treating him. 2. He has severe renal insufficiency and with ascites and edema. In order to keep his edema somewhat under controlled than his ascites, he is on high doses of diuretics; however, his BUN is over 100 now and he is coming in here weak with a hemoglobin of 6.8. PHYSICAL EXAMINATION: SKIN: No petechiae. No bruises. HEENT: Anicteric. NODES: Nonpalpable in axillary, cervical, supraclavicular, or inguinal regions. LUNGS: Clear at present. He is able to lie flat. HEART: S1 and S2. ABDOMEN: Shows no liver, no spleen, but some ascites I think. EXTREMITIES: Trace edema. CENTRAL NERVOUS SYSTEM: Plantars are downward going bilaterally. LABORATORY DATA: His hemoglobin went up from 6.2 to 7.8 on unit of blood. PLAN: 1. While here, we may want to give him another unit of packed cells. 2. He is also on high dose of diuretics and we want to cut back on that, and give him IV hydration. So for right now, he is mostly here for the transfusion and to monitor his electrolytes and renal system. Andres Constantino MD
--- NOTE | 2017-12-02 00:53 | CON ---
DATE: 12/01/2017 ADMITTING PHYSICIAN: Jan Louis MD REFERRING MD: Jan Louis MD. REASON FOR CONSULTATION: Evaluation of the patient with an elevated BUN and creatinine, history of chronic kidney disease stage IV, who presents with hemoptysis. The patient was transferred over from [facility]. HISTORY OF PRESENT ILLNESS: Patient is a 77-year-old white male with history of chronic kidney disease, stage IV. Baseline creatinine in the 3 to 4 range. History of myelodysplastic syndrome, history of anemia. Patient presented with hemoptysis with possible hematemesis, history of pulmonary hypertension, history of mitral and tricuspid regurgitation, history of hypertension, history of atrial fibrillation, history of the patient being mentally challenged, history of ascites secondary to right-sided heart failure, history of BPH, history of GERD, history of severe anemia. Patient was sent over for evaluation and was noted to have a hemoglobin down to 6.8. Previous hemoglobins have been in the 7 to 8 range. Patient's BUN was 141. Baseline BUN has been in the 90 to low 100 range. Creatinine was 3.1, today down to 2.7. Baseline creatinine has been in the low 3 range. Patient's admitting chest x-ray showed no acute pulmonary disease. Patient was admitted for evaluation of hematemesis, possible hemoptysis, decreased hemoglobin, and an elevated BUN in the setting of either hematemesis or hemoptysis. We are asked to evaluate the patient for his elevated BUN and creatinine. Patient is a poor historian. History is obtained from the old medical records. PAST MEDICAL HISTORY: Significant for chronic kidney disease, stage IV, with a baseline creatinine in the 3 to 4 range, closer to 3, with baseline BUN in the 90 to low 100 range; history of myelodysplastic syndrome; history of anemia; history of MR/TR; pulmonary hypertension; history of hypertension; history of atrial fibrillation; patient is mentally challenged; history of ascites secondary to right-sided heart failure; history of BPH; history of GERD; history of anemia. MEDICATIONS AT HOME: Include that of Flomax, Protonix, vitamins, potassium, and Lasix. ALLERGIES: PATIENT HAS NO KNOWN ALLERGIES. MEDICATIONS: Present medications include that of Protonix, IV fluid normal saline, and Synthroid. SOCIAL HISTORY: Patient does not smoke. History of alcohol use. He takes an occasional beer socially. FAMILY HISTORY: Unobtainable. REVIEW OF SYSTEMS: Unobtainable from the patient. PHYSICAL EXAMINATION: GENERAL: Patient is currently seen in the emergency room, lying on a stretcher. He appears to be in no acute distress. VITAL SIGNS: Blood pressure was 107/60, temperature 97.61, respiratory rate 18, with a pulse of 70. HEENT: Shows him to be normocephalic, atraumatic. Conjunctivae are pale. Sclerae are nonicteric. Pupils equal, reactive to light and accommodation. Extraocular muscles are intact. Posterior pharynx appears normal. No evidence for blood in the posterior pharynx. NECK: Supple. No neck vein distention, No thyromegaly. No lymphadenopathy. CHEST: Clear to auscultation and percussion. No rales, no rhonchi or wheezing. CARDIOVASCULAR: S1, S2 are irregular. No S3. No S4. No rub. No audible murmurs. ABDOMEN: Soft. Bowel sounds normal. No tenderness, no rebound, no guarding, no appreciable ascites. BACK: No CVAT. No spinal tenderness. EXTREMITIES: Showed no cyanosis, clubbing, or edema. Distal lower extremity pulses are 1 to 2 plus bilaterally. NEUROLOGIC: Shows him to be alert, oriented. No gross focal motor or sensory deficits. LABORATORY DATA AND IMAGING. Admitting chest x-ray shows no acute pulmonary disease. Admitting EKG shows atrial fibrillation. Labs: CBC: White blood cell count 13.0 on admission, today 10.3; hemoglobin was 6.8, today 7.8 post 2 units of packed red blood cells; platelet count is normal at 207,000. Coags: PT 14.6, PTT of 31.1. Admitting blood gas, pH 7.29, pO2 of 54 with a pCO2 of 17.3. Chemistries: Sodium was 137 on admission; 6.3 upon arrival in ER, today's followup potassium level is 5.0. Patient received one dose of Kayexalate, insulin, and D50. CO2 level was low at 16, chloride is 106. BUN is down from 141 to 136. His baseline BUN is in the upper 90s to low 100 range. Creatinine is at baseline levels, which is down from 3.1 to 2.7. Glucose is 257. Alkaline phosphatase is mildly elevated at 232. Liver enzymes are otherwise normal. LDH is elevated at 2006. Ammonia level is less than 9. BNP is 22,800. Albumin is 2.9. Urine showed 2 to 5 red blood cells, no white blood cells, trace protein. ASSESSMENT: 1. Acute renal failure, prerenal azotemia superimposed on chronic kidney disease, stage IV. Patient's baseline BUN is in the 90 to the low 100 range with a baseline creatinine in the low to mid 3 range. I will obtain a renal ultrasound study to evaluate size of the kidneys and check echogenicity of the kidneys. I will obtain 24-hour urine for creatinine clearance and protein. I will check his vitamin D level and PTH levels to rule out secondary hyperparathyroidism. It appears by history that the patient has advanced chronic kidney disease. 2. Likely gastrointestinal bleeding. Likely no clinical evidence for hemoptysis. Patient's elevated BUN in part be secondary to gastrointestinal bleeding and use of Lasix in the outpatient setting. Patient had been seen by Pulmonary. He will likely be seen by gastrointestinal as well. 3. History of pulmonary hypertension with mitral regurgitation, tricuspid regurgitation in the setting of atrial fibrillation and right-sided heart failure. This appears to be stable. Patient will likely need to continue Lasix therapy post stabilization of his BUN and creatinine. 4. Patient is mentally challenged. Adequate history was unobtainable today. 5. History of benign prostatic hypertrophy, currently stable. 6. History of gastroesophageal reflux disease, currently stable, on protein pump inhibition therapy. 7. History of myelodysplastic syndrome with anemia. Patient has already received 2 units of packed red blood cells. He will be seen by his information technology manager/oncologist, Dr. Constantino. PLAN: 1. I agree with admission to telemetry. 2. Continue to monitor H&H closely and transfuse the patient accordingly. 3. Patient may continue on Aranesp. Apparently, he has received this in the outpatient setting for his myelodysplastic syndrome. 4. Cannot check iron levels as the patient has already received 2 units of packed red blood cells. 5. We will obtain renal ultrasound and 24-hour urine studies. 6. Hoping to stabilize the patient's BUN and creatinine. I do not entertain to do a discussion with him about the possibility of renal replacement therapy should his BUN and creatinine worsened. 7. Continue Pulmonary followup. Continue GI followup. 8. Rule out secondary hyperparathyroidism. PTH and vitamin D levels have been ordered. 9. Once the patient starts a diet, he should be on a renal diet, low protein, low potassium. He is status post hyperkalemia, treated in the emergency room effectively. Thank you for letting me partake and share in the care of your patient. Celestine Ozuna MD
[2017-12-02] MEDS: Levothyroxine 75 MCG TAB PO SCH (06:35)
[2017-12-02 07:19] LABS: BASO # 0.34 K/mm3 (0.0-2.0); EOS # 0.1 (0.0-0.7); EOS % 1.3 % (1.5-5.0); GRAN # 6.26 (1.4-6.5); GRAN % 72.8 % (50.0-68.0); LYMPH # 1.1 (1.2-3.4); LYMPH % 13.2 % (22.0-35.0); MEAN CELL VOLUME 82.7 fl (80.0-105.0); MEAN CORPUSCULAR HEMOGLOBIN 26.5 pg (25.0-35.0); MEAN CORPUSCULAR HGB CONC 32.1 g/dl (31.0-37.0); MEAN PLATELET VOLUME 8.8 fl (7.0-11.0); MONO # 0.8 (0.1-0.6); MONO % 8.7 % (1.0-6.0); PLATELET COUNT 175 10^3/uL (120.0-450.0); RED CELL DISTRIBUTION WIDTH 17.3 % (11.5-14.5); WHITE BLOOD COUNT 8.6 10^3/ul (4.5-11.0)
[2017-12-02 07:27] LABS: HEMOGLOBIN 6.9 g/dL (14.0-18.0)
[2017-12-02 07:55] LABS: ALB/GLOB RATIO 0.9 (1.1-1.8); ALBUMIN 2.6 g/dL (3.0-4.8); CALCIUM 8.1 mg/dL (8.4-10.5); URIC ACID 14.9 mg/dL (3.5-8.5)
--- NOTE | 2017-12-02 08:14 | CARD ---
APPROVED REPORT EKG Measurement Heart [id number] <Conclusion> A. Fib. LAD NSSTW changes
[2017-12-02] MEDS: Insulin Reg-MEDIUM-Coverage SC SCH ×4 (08:22→21:50)
[2017-12-02 08:32] LABS: BAND 3 % (0-2); EOSINOPHIL 1 % (0.0-3.0); LYMPHOCYTE 18 % (22.0-35.0); METAMYELOCYTE 4 %; MONOCYTE 3 % (1.0-6.0); MYELOCYTE 3 %; NEUTROPHIL 68 % (50.0-70.0); NUCLEATED RED BLOOD CELL 1 %
[2017-12-02 08:34] LABS: ANISOCYTOSIS SLIGHT
[2017-12-02 08:35] LABS: POLYCHROMASIA SLIGHT
[2017-12-02] MEDS: Sodium Bicarbonate 8.4% 50 MEQ in Dextrose 5% In Water 1,000 ML IV SCH (09:01)
[2017-12-02] MEDS: Sildenafil 20 MG TAB PO SCH ×2 (10:18→17:08)
[2017-12-02] MEDS: Pantoprazole 40 mg EC Tab PO SCH (10:19)
--- NOTE | 2017-12-02 13:15 | PN ---
DATE: 12/02/2017 PULMONARY NOTE SUBJECTIVE: The patient appears very comfortable this morning. He is not short of breath at rest. PHYSICAL EXAMINATION VITAL SIGNS: Temperature is 99.5, pulse is 70, respirations 18, blood pressure 103/57. Oxygen saturation on room air is 99%. HEENT: Normocephalic, atraumatic. No JVD. CARDIOVASCULAR: Systolic ejection murmur at the lower left sternal border. Questionable S3 gallop. LUNGS: Decreased breath sounds at the bases. No rhonchi. No wheezing. EXTREMITIES: No clubbing, cyanosis or edema. Calves are nontender to palpation. GI: Abdomen is soft, nontender and nondistended. Bowel sounds are positive. SKIN: No acute rash. NEUROLOGIC: Limited at the present time. IMPRESSION: 1. Questionable hematemesis. 2. Chronic anemia. 3. Acute on chronic kidney disease. 4. Congestive heart failure. 5. Pulmonary hypertension. 6. Myelodysplastic syndrome. PLAN: The patient appears comfortable this morning. He is not short of breath at rest. He does state to feeling better overall. On physical exam, there is no significant bronchospasm noted. In addition, the oxygen saturation on room air is 99%. I did discuss the case with the night nurse at length. The night nurse stated that there are absolutely no signs of hematemesis or hemoptysis during her shift. Additional history from Dr. Louis yesterday, yields that the blood in the patient's mouth may be due to his nose. He reportedly had a nosebleed. Clinical status of the patient is certainly improved - compared to the initial presentation. Inputs by Oncology and Renal are noted. Input by Cardiology is also noted. The patient's blood pressure appears stable this morning. I will start a low dose of sildenafil - for his pulmonary hypertension. In spite of the clinical improvement, the patient's overall status/prognosis remains very guarded. I will discuss the above with Dr. Louis. Carlos Sandoval MD EMIL
--- NOTE | 2017-12-02 13:16 | PN ---
SUBJECTIVE: The patient was seen and examined at bedside on the remote telemetry dempsey. No acute events overnight. He remains afebrile and hemodynamically stable. There have been no further episodes of any overt blood loss. This morning he feels okay overall and offers no complaints. PHYSICAL EXAMINATION: VITAL SIGNS: Temperature 99.5, pulse 70, blood pressure 103/57, respiratory rate 18, oxygen saturation 99% on room air. GENERAL: No apparent distress. HEENT: PERRL. EOMI. No scleral icterus. Mild conjunctival pallor is noted. NECK: No JVD. No bruits. LUNGS: Decreased breath sounds at the bases with a few scattered rhonchi. CARDIOVASCULAR: Regular rate and rhythm. Normal S1 and S2. Grade 2/6 systolic murmur to the left upper sternal border. ABDOMEN: Normoactive bowel sounds, soft, nontender, mildly distended. No rigidity. No tympany. Paracentesis access appears clean, dry, and intact. EXTREMITIES: Trace to 1+ bilateral lower extremity edema with chronic venous stasis changes. NEUROLOGIC: Awake, alert, and oriented x3. No focal motor deficits. IMAGING STUDIES: Renal ultrasound demonstrates no acute pathology. ASSESSMENT: The patient is a 77 year old man with multiple medical comorbidities including chronic diastolic heart failure with severe pulmonary hypertension, history of recurrent ascites secondary to underlying right heart failure, CKD stage IV, anemia of chronic disease, myelodysplastic syndrome, AFib and hypothyroidism who was sent from [facility] for evaluation of 2 episodes of epistaxis and who was admitted for management of hyperkalemia, RAYMOND on CKD and [id number] diastolic heart failure exacerbation. PLAN: 1. Epistaxis, resolved, with etiology likely secondary to underlying platelet dysfunction in the setting of profound uremia. The patient received Desmopressin 20 mcg IV in the ED and there has been no further witnessed bleeding episodes since presentation to the ED. The patient is also s/p transfusion of 2 units of PRBC's. Morning labs demonstrate an acute drop in Hb however all cell lines are down and this may be dilutional. Continue to monitor CBC daily. Stool occult blood is pending. 2. Myelodysplastic syndrome. Input from Dr. Constantino noted and appreciated. Continue with care as per Dr. Constantino. 3. Anemia of chronic disease secondary to the patient's underlying MDS. Continue to monitor the CBC daily. Continue care as per Dr. Constantino. 4. Hyperkalemia, resolved. 5. CKD stage IV. Input from Dr. Ozuna is noted and greatly appreciated. Renal sonogram reviewed and unremarkable. Continue with care as per Dr. Ozuna. 6. Acute on chronic diastolic heart failure exacerbation. Input from Dr. Johns noted and greatly appreciated. The patient remains off Lasix at present. 7. Severe pulmonary hypertension. Input from Dr. Sandoval greatly appreciated and the patient has been started on Sildenafil 20 mg p.o. b.i.d. We will need to discuss with the Cardiology team the need for cardiac catheterization. 8. Hypothyroidism. Continue Synthroid 75 mcg p.o. daily. 9. Hypertension. The patient remains off antihypertensives given his tenuous blood pressure. 10. BPH. The patient remains with a Hickman catheter in place. Continue to hold Flomax given his low-normal blood pressure. 11. GERD. Continue Protonix 40 mg p.o. daily. 12. History of recurrent ascites secondary to underlying right heart failure/ severe pulmonary hypertension. The patient has an abdominal paracentesis port in place which can be utilized as needed. 13. Prophylaxis. Continue Protonix for GI prophylaxis and SCDs for DVT prophylaxis. CODE STATUS: Full code. Jan Louis MD MTDD
--- NOTE | 2017-12-02 14:42 | PN ---
DATE: 12/02/2017 SUBJECTIVE: The patient is seen lying in bed on telemetry. He is currently comfortable. He has had no further hemoptysis. He denies any chest pain or dyspnea. His current medications include insulin coverage, Protonix, Revatio, sodium bicarbonate infusion, and Synthroid. PHYSICAL EXAMINATION: GENERAL: He is an elderly man, appears comfortable. VITAL SIGNS: His blood pressure is 102/56 with a pulse of 70, in atrial fibrillation; respirations are 16. He is afebrile. HEENT: No JVD. CHEST: Bilateral scattered rhonchi. HEART: PMI displaced laterally with an irregularly irregular rhythm. ABDOMEN: Soft, nontender. Normoactive bowel sounds. EXTREMITIES: A 3+ leg edema. DIAGNOSTIC DATA: Potassium is 4.4, BUN and creatinine are 134 and 2.6. Hemoglobin and hematocrit are 6.9 and 21.5 with a white count of 8.6, platelet count of 175,000. IMPRESSION: 1. Recent hemoptysis, no recurrence noted. 2. Myelodysplastic preleukemia syndrome. 3. Severe btfcr-rx-oelcenl renal insufficiency. 4. Chronic atrial fibrillation. 5. Mitral and tricuspid regurgitation. 6. Chronic right heart failure. RECOMMENDATIONS: Continued conservative management at the present time is most appropriate. Serial CBCs have been ordered. He is currently receiving sodium bicarbonate infusion, which may exacerbate his peripheral edema and he will likely eventually need additional diuresis; however, this may exacerbate his renal failure. His overall prognosis remains poor. Comfort care is advised. We will follow along as needed. Trace Danielle MD
--- NOTE | 2017-12-02 16:07 | CP.PCM.CON ---
<Farzana Coles - Last Filed: 12/02/17 16:01> History of Present Illness - History of Present Illness History of Present Illness: Consult note - Dr. Whitney 77 year old male patient with PMHx of CHF was seen and evaluated at bedside for bilateral heel wounds. Patient was brought in to the hospital because was found to have blood while coughing. Patient was seen by a wound care nurse after the admission who recommended for Dr. Whitney to be consulted. Patient was denies of any pain in his feet today. Patient is a poor historian and does not respond to questions well and provides random answers. Review of Systems - Constitutional Constitutional: As Per HPI Past Patient History - Infectious Disease Hx of Infectious Diseases: None - Past Social History Smoking Status: Former Smoker - CARDIAC Hx Cardiac Disorders: Yes (Pulmonary hypertension) Hx Cardia Arrhythmia: Yes (Afib) Hx Congestive Heart Failure: Yes - PULMONARY Hx Respiratory Disorders: No - NEUROLOGICAL Hx Paralysis: No - RENAL Hx Chronic Kidney Disease: Yes - HEMATOLOGICAL/ONCOLOGICAL Hx Blood Disorders: Yes (Myelodysplastic syndrome) Hx Anemia: Yes - INTEGUMENTARY Hx Dermatological Problems: Yes - MUSCULOSKELETAL/RHEUMATOLOGICAL Hx Falls: No Hx Unsteady Gait: Yes - GASTROINTESTINAL Hx Gastrointestinal Disorders: Yes (Left inguinal hernia, acites) Hx Diverticulitis: Yes - PSYCHIATRIC Hx Emotional Abuse: No Hx Physical Abuse: No Hx Substance Use: No - SURGICAL HISTORY Hx Surgeries: Yes (Tunnel peritoneal catheter insertion for frequent paracentesis) - ANESTHESIA Hx Anesthesia: Yes Hx Anesthesia Reactions: No Hx Malignant Hyperthermia: No Meds Allergies/Adverse Reactions: Allergies Allergy/AdvReac Type Severity Reaction Status Date / Time No Known Allergies Allergy Verified 04/26/17 06:34 - Medications Medications: Current Medications Sodium Bicarbonate 50 meq/ (Dextrose) 1,050 mls @ 60 mls/hr IV .[id number] [facility] Last Admin: 12/02/17 09:01 Dose: 60 mls/hr Insulin Human Regular (Humulin R Med) 0 units SC ACHS [facility] PRN Reason: Protocol Last Admin: 12/02/17 12:55 Dose: 3 units Levothyroxine Sodium (Synthroid) 75 mcg PO 0600 [facility] Last Admin: 12/02/17 06:35 Dose: 75 mcg Pantoprazole Sodium (Protonix Ec Tab) 40 mg PO DAILY [facility] Last Admin: 12/02/17 10:19 Dose: 40 mg Sildenafil Citrate (Revatio) 20 mg PO BID [facility] Last Admin: 12/02/17 10:18 Dose: 20 mg Physical Exam - Constitutional Appears: Well, Non-toxic, No Acute Distress - Extremities Exam Extremities exam: Positive for: full ROM, normal capillary refill, pedal edema, pedal pulses present. Negative for: calf tenderness, joint swelling, tenderness Additional comments: Bilateral LE exam: VASC: DP/PT pulses are palpable 2/4, Cap refill time: < 3 sec to all digits, Temp gradient: warm to cool from proximal to distal, +1 pitting edema noted on the dorsum of the feet as well as distal leg DERM: Hyperpigmented escher noted on the lateral aspect of the right foot at the heel, base of the 5th metatarsal and head of the 5th metatarsal - all appear as a nonstagable deep tissue injury secondary to the pressure point in bed (Patient is resting with abducted lower extremity), hyperpigmented skin is intact with no break, no clinical suspicion of active infection; Left plantar- posterior fluid filled blister with small deroofing of the skin noted, wound base is hyperpigmented due to deep tissue injury, serous drainage present, no yessenia-wound erythema, no tunneling, no undermining, no probe to bone, no malodor , no clinical suspicion of active infection NEURO: Protective sensation mildly diminished ORTHO: Mild tenderness during palpation of the left plantar posterior wound - Neurological Exam Neurological exam: Alert Results - Vital Signs Recent Vital Signs: Last Vital Signs Temp 97.7 F 12/02/17 16:00 Pulse 67 12/02/17 16:00 Resp 16 12/02/17 16:00 BP 123/67 12/02/17 16:00 Pulse Ox 98 12/02/17 12:00 - Labs Result Diagrams: 12/02/17 06:30 12/02/17 06:30 Labs: Laboratory Results - last 24 hr 11/30/17 12/01/17 12/01/17 21:43 16:04 22:38 WBC RBC Hgb Hct MCV MCH MCHC RDW Plt Count MPV Gran % Lymph % (Auto) Victoria % (Auto) Eos % (Auto) Baso % (Auto) Gran # Lymph # (Auto) Victoria # (Auto) Eos # (Auto) Baso # (Auto) Neutrophils % (Manual) Band Neutrophils % Lymphocytes % (Manual) Monocytes % (Manual) Eosinophils % (Manual) Metamyelocytes % Myelocytes % Nucleated RBC % Polychromasia Anisocytosis (manual) Sodium Potassium Chloride Carbon Dioxide Anion Gap BUN Creatinine Est GFR ( Amer) Est GFR (Non-Af Amer) POC Glucose (mg/dL) 271 H 198 H Random Glucose Uric Acid Calcium Phosphorus Total Bilirubin AST ALT Alkaline Phosphatase Total Protein Albumin Globulin Albumin/Globulin Ratio 25-OH Vitamin D Total Blood Type O NEGATIVE Antibody Screen Negative Crossmatch See Detail BBK History Checked Patient has bt 12/02/17 12/02/17 12/02/17 06:30 06:30 06:30 WBC 8.6 RBC 2.60 L Hgb 6.9 L* Hct 21.5 L MCV 82.7 MCH 26.5 MCHC 32.1 RDW 17.3 H Plt Count 175 MPV 8.8 Gran % 72.8 H Lymph % (Auto) 13.2 L Victoria % (Auto) 8.7 H Eos % (Auto) 1.3 L Baso % (Auto) 4.0 H Gran # 6.26 Lymph # (Auto) 1.1 L Victoria # (Auto) 0.8 H Eos # (Auto) 0.1 Baso # (Auto) 0.34 Neutrophils % (Manual) 68 Band Neutrophils % 3 H Lymphocytes % (Manual) 18 L Monocytes % (Manual) 3 Eosinophils % (Manual) 1 Metamyelocytes % 4 Myelocytes % 3 Nucleated RBC % 1 Polychromasia Slight Anisocytosis (manual) Slight Sodium 137 Potassium 4.4 Chloride 106 Carbon Dioxide 17 L Anion Gap 18 BUN 134 H* Creatinine 2.6 H Est GFR ( Amer) 29 Est GFR (Non-Af Amer) 24 POC Glucose (mg/dL) Random Glucose 214 H Uric Acid 14.9 H Calcium 8.1 L Phosphorus 5.6 H Total Bilirubin 0.9 AST 27 ALT 39 Alkaline Phosphatase 203 H Total Protein 5.7 L Albumin 2.6 L Globulin 3.1 Albumin/Globulin Ratio 0.9 L 25-OH Vitamin D Total 35.6 Blood Type Antibody Screen Crossmatch BBK History Checked 12/02/17 12/02/17 07:24 11:06 WBC RBC Hgb Hct MCV MCH MCHC RDW Plt Count MPV Gran % Lymph % (Auto) Victoria % (Auto) Eos % (Auto) Baso % (Auto) Gran # Lymph # (Auto) Victoria # (Auto) Eos # (Auto) Baso # (Auto) Neutrophils % (Manual) Band Neutrophils % Lymphocytes % (Manual) Monocytes % (Manual) Eosinophils % (Manual) Metamyelocytes % Myelocytes % Nucleated RBC % Polychromasia Anisocytosis (manual) Sodium Potassium Chloride Carbon Dioxide Anion Gap BUN Creatinine Est GFR ( Amer) Est GFR (Non-Af Amer) POC Glucose (mg/dL) 215 H 206 H Random Glucose Uric Acid Calcium Phosphorus Total Bilirubin AST ALT Alkaline Phosphatase Total Protein Albumin Globulin Albumin/Globulin Ratio 25-OH Vitamin D Total Blood Type Antibody Screen Crossmatch BBK History Checked Assessment & Plan - Assessment and Plan (Free Text) Assessment: 77 year old male patient with PMHx of CHF was evaluated for bilateral heel deep tissue injuries Plan: Patient seen and evaluated Patient discussed in details with attending Dr. Whitney Labs, vitals and charts reviewed - afebrile and no leukocytosis Wound cleaned with saline and dressing applied using optifoam on the right foot and maxorb, DSD on the left foot Multipodus boots ordered - to be worn at all times while in bed No signs of active infection from bilateral LE Podiatry to follow patient while in house Thank you for the podiatry consult and allowing to take part in patient care - Date & Time Date: 12/02/17 Time: 16:20 <Maritza Whitney - Last Filed: 12/06/17 15:29> Meds - Medications Medications: Current Medications Furosemide (Lasix) 20 mg IVP Q12 [facility] Last Admin: 12/06/17 10:01 Dose: 20 mg Insulin Human Regular (Humulin R Med) 0 units SC ACHS [facility] PRN Reason: Protocol Last Admin: 12/06/17 11:43 Dose: Not Given Levothyroxine Sodium (Synthroid) 75 mcg PO 0600 [facility] Last Admin: 12/06/17 06:02 Dose: 75 mcg Pantoprazole Sodium (Protonix Ec Tab) 40 mg PO DAILY [facility] Last Admin: 12/06/17 10:01 Dose: 40 mg Sildenafil Citrate (Revatio) 20 mg PO BID [facility] Last Admin: 12/06/17 10:01 Dose: 20 mg Sodium Bicarbonate (Sodium Bicarbonate Tab) 1,300 mg PO TID [facility] Last Admin: 12/06/17 13:49 Dose: 1,300 mg Results - Vital Signs Recent Vital Signs: Last Vital Signs Temp 97.9 F 12/06/17 06:00 Pulse 68 12/06/17 10:00 Resp 18 12/06/17 06:00 BP 132/72 12/06/17 10:01 Pulse Ox 94 L 12/06/17 06:00 - Labs Result Diagrams: 12/06/17 09:00 12/06/17 09:00 Labs: Laboratory Results - last 24 hr 12/05/17 12/05/17 12/06/17 16:06 21:39 07:29 WBC RBC Hgb Hct MCV MCH MCHC RDW Plt Count MPV Gran % Lymph % (Auto) Victoria % (Auto) Eos % (Auto) Baso % (Auto) Gran # Lymph # (Auto) Victoria # (Auto) Eos # (Auto) Baso # (Auto) Sodium Potassium Chloride Carbon Dioxide Anion Gap BUN Creatinine Est GFR ( Amer) Est GFR (Non-Af Amer) POC Glucose (mg/dL) 184 H 135 H 135 H Random Glucose Calcium Total Bilirubin AST ALT Alkaline Phosphatase Total Protein Albumin Globulin Albumin/Globulin Ratio Fluid Source Fluid Appearance Fluid Comment 12/06/17 12/06/17 12/06/17 09:00 09:00 11:06 WBC 11.9 H RBC 2.91 L Hgb 8.0 L Hct 24.1 L MCV 82.8 MCH 27.5 MCHC 33.2 RDW 17.2 H Plt Count 124 MPV 9.5 Gran % 71.7 H Lymph % (Auto) 5.8 L Victoria % (Auto) 17.3 H Eos % (Auto) 1.4 L Baso % (Auto) 3.8 H Gran # 8.53 H Lymph # (Auto) 0.7 L Victoria # (Auto) 2.1 H Eos # (Auto) 0.2 Baso # (Auto) 0.45 Sodium 133 Potassium 4.6 Chloride 101 Carbon Dioxide 17 L Anion Gap 19 BUN 139 H* Creatinine 2.8 H Est GFR ( Amer) 27 Est GFR (Non-Af Amer) 22 POC Glucose (mg/dL) 155 H Random Glucose 134 H Calcium 8.3 L Total Bilirubin 1.1 AST 37 ALT 41 Alkaline Phosphatase 200 H Total Protein 5.6 L Albumin 2.8 L Globulin 2.8 Albumin/Globulin Ratio 1.0 L Fluid Source Fluid Appearance Fluid Comment 12/06/17 11:30 WBC RBC Hgb Hct MCV MCH MCHC RDW Plt Count MPV Gran % Lymph % (Auto) Victoria % (Auto) Eos % (Auto) Baso % (Auto) Gran # Lymph # (Auto) Victoria # (Auto) Eos # (Auto) Baso # (Auto) Sodium Potassium Chloride Carbon Dioxide Anion Gap BUN Creatinine Est GFR ( Amer) Est GFR (Non-Af Amer) POC Glucose (mg/dL) Random Glucose Calcium Total Bilirubin AST ALT Alkaline Phosphatase Total Protein Albumin Globulin Albumin/Globulin Ratio Fluid Source Peritoneal/ascites Fluid Appearance Clear Fluid Comment [place] Attending/Attestation - Attestation I have personally seen and examined this patient.: Yes I have fully participated in the care of the patient.: Yes I have reviewed all pertinent clinical information: Yes
--- NOTE | 2017-12-02 16:57 | PN ---
DATE: 12/02/2017 SUBJECTIVE: The patient is seen lying in bed. He is awake. He is alert. He denies any chest pain. He denies any shortness of breath. He denies any melena. He denies any hematuria. PHYSICAL EXAMINATION: GENERAL: Elderly male, lying in bed. VITAL SIGNS: Blood pressure 116/59, heart rate 65, respiratory rate 18, temperature 97.9. HEENT: Normocephalic, atraumatic, positive pallor. NECK: Supple, no JVD. LUNGS: Bilateral equal air entry, no rales. CARDIAC: S1 and S2, regular rate and rhythm, no murmur, no rub. ABDOMEN: Obese, distended, soft, nontender, bowel sounds present. EXTREMITIES: Trace lower extremity edema. INTAKE AND OUTPUT: 900/not charted. LABORATORY DATA: WBC 8.6, hemoglobin 6.9, hematocrit 22, platelets 175. Sodium 137, potassium 4.4, chloride 106, CO2 of 18, BUN 134, creatinine 2.6, glucose 214, uric acid 14.9, calcium 8.1, phosphorus 5.6, magnesium not checked, albumin 2.6. Urinalysis: Yellow, slightly cloudy, pH 5.5, specific gravity 1.020, protein trace, blood large, nitrite negative, leukocyte esterase negative. INR 1.2. Ultrasound of the kidneys: Right kidney 10.1, left kidney 10.7. No obstruction. MEDICATION LIST: Insulin, Protonix, Revatio, D5W with 1 amp of bicarb at 60, Synthroid. ASSESSMENT: 1. Myelodysplastic syndrome, anemia. 2. Acute kidney injury superimposed on chronic kidney disease stage 4. 3. Pulmonary hypertension. 4. Hemoptysis/hematemesis/hematuria. 5. Benign prostatic hypertrophy. PLAN: 1. Continue low-dose IV fluids. 2. Transfuse 2 units of PRBC today. 3. GI followup. 4. Oncology followup. Ruth Layton MD
[2017-12-02 20:12] LABS: URINE CREATININE 63.3 mg/dL
[2017-12-03] MEDS: Levothyroxine 75 MCG TAB PO SCH (05:14)
[2017-12-03 07:02] LABS: ALB/GLOB RATIO 0.8 (1.1-1.8); ALBUMIN 2.6 g/dL (3.0-4.8); CALCIUM 8.1 mg/dL (8.4-10.5)
[2017-12-03 07:14] LABS: BASO # 0.38 K/mm3 (0.0-2.0); BASO % 4.3 % (0.0-3.0); EOS # 0.1 (0.0-0.7); EOS % 1.6 % (1.5-5.0); GRAN # 6.31 (1.4-6.5); GRAN % 71.7 % (50.0-68.0); LYMPH # 0.8 (1.2-3.4); LYMPH % 9.5 % (22.0-35.0); MEAN CELL VOLUME 83.8 fl (80.0-105.0); MEAN CORPUSCULAR HGB CONC 32.3 g/dl (31.0-37.0); MEAN PLATELET VOLUME 9.7 fl (7.0-11.0); MONO # 1.1 (0.1-0.6); MONO % 12.9 % (1.0-6.0); PLATELET COUNT 169 10^3/uL (120.0-450.0); RBC 3.33 10^6/uL (3.5-6.1); RED CELL DISTRIBUTION WIDTH 17.1 % (11.5-14.5); WHITE BLOOD COUNT 8.8 10^3/ul (4.5-11.0)
[2017-12-03] MEDS: Insulin Reg-MEDIUM-Coverage SC SCH ×4 (07:53→23:00)
--- NOTE | 2017-12-03 07:53 | CP.PCM.PN ---
Subjective - Date & Time of Evaluation Date of Evaluation: 12/03/17 Time of Evaluation: 07:00 - Subjective Subjective: Stable on 3R. No CP or SOB. S/P transfusion 2 units. V/S noted. AF PE: Lungs: rhonchi Cor.: irreg S1S2 Abd: + ascites Ext: + edema Neuro: alert I/O= 2531/1400 Labs noted: H/H 9/27.9, K+= 3.9, BUN = 126, Cr=2.4 BC X2 NG at 48 hrs. Objective - Vital Signs/Intake and Output Vital Signs (last 24 hours): Temp Pulse Resp BP Pulse Ox 98.4 F 58 L 20 111/62 99 12/03/17 06:00 12/03/17 06:00 12/03/17 06:00 12/03/17 06:00 12/03/17 06:00 Intake and Output: 12/03/17 12/03/17 06:59 18:59 Intake Total 1811 Output Total 1000 Balance 811 - Medications Medications: Current Medications Sodium Bicarbonate 50 meq/ (Dextrose) 1,050 mls @ 60 mls/hr IV .[id number] [facility] Last Admin: 12/02/17 09:01 Dose: 60 mls/hr Insulin Human Regular (Humulin R Med) 0 units SC ACHS [facility] PRN Reason: Protocol Last Admin: 12/02/17 21:50 Dose: Not Given Levothyroxine Sodium (Synthroid) 75 mcg PO 0600 [facility] Last Admin: 12/03/17 05:14 Dose: 75 mcg Pantoprazole Sodium (Protonix Ec Tab) 40 mg PO DAILY [facility] Last Admin: 12/02/17 10:19 Dose: 40 mg Sildenafil Citrate (Revatio) 20 mg PO BID [facility] Last Admin: 12/02/17 17:08 Dose: 20 mg - Labs Labs: 12/03/17 05:45 12/03/17 05:45 PT 14.6 SECONDS (9.4-12.5) H 11/30/17 19:30 INR 1.27 (0.93-1.08) H 11/30/17 19:30 APTT 31.1 Seconds (25.1-36.5) 11/30/17 19:30 Assessment and Plan - Assessment and Plan (Free Text) Assessment: Hemoptysis/Hemetemesis Right Heart Failure AF Acute on chronic kidney disease MDS with severe anemia/S/P Transfusions Echo: Mild LVD, Severe TR and PH, mod. MR HBP H/O Tobacco and ETOH use Plan: As per Renal, Heme, Podiatry, Pulm., Dr. Louis Monitor: I/O, labs, H/H, renal fx., sats., etc. OOB as graciela.
[2017-12-03] MEDS: Darbepoetin Alfa 100 mcg/ml Inj IVP ONE ×2 (08:15→09:29)
[2017-12-03] MEDS: Sodium Bicarbonate 8.4% 50 MEQ in Dextrose 5% In Water 1,000 ML IV SCH (09:30)
[2017-12-03] MEDS: Pantoprazole 40 mg EC Tab PO SCH (09:31)
--- NOTE | 2017-12-03 09:35 | PN ---
DATE: 12/03/2017 PULMONARY NOTE SUBJECTIVE: The patient appears very comfortable this morning. He is not short of breath at rest. PHYSICAL EXAMINATION VITAL SIGNS: Temperature is 98.4, pulse is 58, respirations 18/20, blood pressure 111/62. Oxygen saturation on room air is 99%. HEENT: Normocephalic, atraumatic. No JVD. CARDIOVASCULAR: Systolic ejection murmur at the lower left sternal border. Questionable S3 gallop. LUNGS: Decreased breath sounds at the bases. No rhonchi. No wheezing. EXTREMITIES: No clubbing, cyanosis or edema. Calves are nontender to palpation. GI: Abdomen is soft, nontender and nondistended. Bowel sounds are positive. SKIN: No acute rash. NEUROLOGIC: Limited at the present time. IMPRESSION: 1. Epistaxis - resolved. 2. Chronic anemia. 3. Acute on chronic kidney disease. 4. Congestive heart failure. 5. Pulmonary hypertension. 6. Myelodysplastic syndrome. PLAN: The patient appears very comfortable this morning. He is not short of breath at rest. He does state to feeling much better overall. He is much less confused. On physical exam, no significant bronchospasm exists. In addition, the oxygen saturation on room air is 99%. I did discuss the case with the night nurse at length. The night nurse stated that the patient had a very good night. There have been no additional signs of epistaxis, hematemesis, or hemoptysis. I will continue with the sildenafil for now. The patient appears to be tolerating it. Inputs by Cardiology and Renal are also noted. Repeat a.m. labs are pending. Clinical status of the patient is certainly improved - compared to the initial presentation. However, again, his overall status/prognosis does remain guarded. I will discuss the above with Dr. Louis. Carlos Sandoval MD MTDD
[2017-12-03] MEDS: Sildenafil 20 MG TAB PO SCH ×2 (09:44→17:29)
[2017-12-03 10:26] LABS: ANISOCYTOSIS SLIGHT; BAND 6 % (0-2); BASOPHIL 1 % (0.0-1.0); LYMPHOCYTE 13 % (22.0-35.0); METAMYELOCYTE 3 %; MONOCYTE 7 % (1.0-6.0); MYELOCYTE 1 %; NEUTROPHIL 69 % (50.0-70.0); NUCLEATED RED BLOOD CELL 1 %; POIKILOCYTOSIS SLIGHT
--- NOTE | 2017-12-03 11:00 | PN ---
SUBJECTIVE: The patient was seen and examined at the bedside on the remote telemetry dempsey. No acute events overnight. He remains afebrile and hemodynamically stable. The patient is s/p transfusion of an additional 2 units of PRBCs with no complications noted. This morning he feels well and denies any further episodes of blood loss and is asking when he is being discharged. OBJECTIVE VITAL SIGNS: Temperature 98.4, pulse 58, blood pressure 111/62, respiratory rate 20, oxygen saturation 99% on room air. GENERAL: No apparent distress. HEENT: PERRL, EOMI. No scleral icterus. Mild conjunctival pallor is noted. NECK: No JVD. No bruits. LUNGS: Decreased breath sounds at the bases with a few scattered rhonchi. CARDIOVASCULAR: Regular rate and rhythm. Normal S1 and S2. Grade 2/6 systolic murmur to the left upper sternal border. ABDOMEN: Normoactive bowel sounds. Soft, nontender. Mildly distended. No rigidity. No tympany. Paracentesis access appears clean, dry, and intact. EXTREMITIES: Trace to 1+ bilateral lower extremity edema with chronic venous stasis changes. NEUROLOGIC: Awake, alert, and oriented x3. No focal motor deficits. LABORATORY DATA: WBC 8.8, hemoglobin 9, hematocrit 28, platelets 169,000. Sodium 133, potassium 3.9, chloride 100, bicarbonate 20, BUN 126, creatinine 2.4 , glucose 168. ASSESSMENT: The patient is a 77 year old man with multiple medical comorbidities including chronic diastolic heart failure with severe pulmonary hypertension, history of recurrent ascites secondary to underlying right heart failure, CKD stage IV, anemia of chronic disease, myelodysplastic syndrome, AFib and hypothyroidism who was sent [facility] for evaluation of 2 episodes of epistaxis who was admitted for management of hyperkalemia, RAYMOND on CKID and acute -on-chronic diastolic heart failure exacerbation. PLAN 1. Epistaxis, resolved, with etiology likely secondary to underlying platelet dysfunction in the setting of profound uremia. The patient received Desmopressin 20 mcg IV in the ED and there has been no further witnessed bleeding episodes since presentation to the ED. The patient is also s/p transfusion of an additional 2 units of PRBCs with an appropriate response in hemoglobin. We will continue to monitor his CBC daily. Stool occult blood is pending. 2. Myelodysplastic syndrome. Input from Dr. Constantino noted and appreciated. Continue with care as per Dr. Constantino. 3. Anemia of chronic disease secondary to the patient's underlying MDS. As above, the patient is s/p transfusion of an additional 2 units of PRBCs. Continue to monitor the CBC daily. 4. Hyperkalemia, resolved. 5. CKD stage IV. Input from Dr. Ozuna and Dr. Layton noted and greatly appreciated. Continue with care as per the Nephrology team. 6. [id number] diastolic heart failure exacerbation. Input from Dr. Johns noted and greatly appreciated. The patient remains off Lasix. 7. Severe pulmonary hypertension. Input from Dr. Sandoval greatly appreciated. The patient remains on Sildenafil 20 mg p.o. b.i.d. 8. Hypothyroidism. Continue Synthroid 75 mcg p.o. daily. 9. Hypertension. The patient remains off antihypertensives given his tenuous blood pressure. We will continue to monitor hemodynamics and resume antihypertensives as needed. 10. BPH. The patient remains with Hickman catheter in place. Continue to hold Flomax. 11. GERD. Continue Protonix 40 mg p.o. daily. 12. History of recurrent ascites secondary to underlying right heart failure/ severe pulmonary hypertension. The patient has an abdominal paracentesis port in place, which can be utilized as needed. 13. Prophylaxis. Continue Protonix for GI prophylaxis and SCDs for DVT prophylaxis. CODE STATUS: Full code. Jan Louis MD EMIL
[2017-12-03] MEDS: Darbepoetin Alfa 25 mcg/ml Inj SC ONE ×2 (11:11→11:17)
--- NOTE | 2017-12-03 12:50 | CP.PCM.PN ---
<Naresh Aaron - Last Filed: 12/03/17 15:38> Subjective - Date & Time of Evaluation Date of Evaluation: 12/03/17 Time of Evaluation: 12:50 - Subjective Subjective: Podiatry Progress Note - Dr. Whitney 77 year old male patient PMHx CHF seen and evaluated at bedside for bilateral heel wounds. Patient hemodynamically stable and NAD. Sister present at bedside. No acute events overnight. Multipodus boots present bilaterally. Patient is a poor historian, unable to obtain full HPI. Patient still complains of pain in bilateral feet when touched. Denies N/V/F/D/C/SOB. Objective - Vital Signs/Intake and Output Vital Signs (last 24 hours): Temp Pulse Resp BP Pulse Ox 97.6 F 68 20 118/70 96 12/03/17 12:00 12/03/17 12:00 12/03/17 12:00 12/03/17 12:00 12/03/17 09:00 Intake and Output: 12/03/17 12/03/17 06:59 18:59 Intake Total 1811 Output Total 1000 Balance 811 - Medications Medications: Current Medications Sodium Bicarbonate 50 meq/ (Dextrose) 1,050 mls @ 60 mls/hr IV .[id number] [facility] Last Admin: 12/03/17 09:30 Dose: 60 mls/hr Insulin Human Regular (Humulin R Med) 0 units SC ACHS [facility] PRN Reason: Protocol Last Admin: 12/03/17 11:22 Dose: 1 units Levothyroxine Sodium (Synthroid) 75 mcg PO 0600 [facility] Last Admin: 12/03/17 05:14 Dose: 75 mcg Pantoprazole Sodium (Protonix Ec Tab) 40 mg PO DAILY [facility] Last Admin: 12/03/17 09:31 Dose: 40 mg Sildenafil Citrate (Revatio) 20 mg PO BID [facility] Last Admin: 12/03/17 09:44 Dose: 20 mg - Labs Labs: 12/03/17 05:45 12/03/17 05:45 PT 14.6 SECONDS (9.4-12.5) H 11/30/17 19:30 INR 1.27 (0.93-1.08) H 11/30/17 19:30 APTT 31.1 Seconds (25.1-36.5) 11/30/17 19:30 - Constitutional Appears: Well, Non-toxic, No Acute Distress - Extremities Exam Additional comments: Bilateral LE exam: Patient resting in bed with externally rotated bilateral lower extremities and knees flexed 90 degrees; appears to be semi-rigid as patient withdraws to this position VASC: DP/PT pulses are palpable 2/4, Cap refill time: < 3 sec to all digits, Temp gradient: warm to cool from proximal to distal, +1 pitting edema noted on the dorsum of the feet as well as distal leg DERM: Eschars noted on the lateral aspect of the right foot at the heel, base of the 5th metatarsal and head of the 5th metatarsal - all appear as a nonstagable deep tissue injury secondary to the pressure point in bed, hyperpigmented skin is intact with no break, no clinical suspicion of active infection; Left plantar-posterior fluid filled blister with small deroofing of the skin noted, wound base is hyperpigmented due to deep tissue injury, mild serous drainage present, no yessenia-wound erythema, no tunneling, no undermining, no probe to bone, no malodor, no clinical suspicion of active infection. Fluid filled bullae x2 noted to left plantar medial arch with intact roof. NEURO: Unable to assess ORTHO: Pain on palpation noted to deep tissue injuries b/l. - Neurological Exam Neurological Exam: Alert, Awake, Oriented x3 - Psychiatric Exam Psychiatric exam: Normal Affect, Normal Mood Assessment and Plan - Assessment and Plan (Free Text) Assessment: 77 year old male patient with PMHx of CHF was evaluated for bilateral heel deep tissue injuries Plan: Patient seen and evaluated with attending, Dr. Whitney Afebrile, WBC 8.8 Wounds appear to be stable at this time Continue local wound care - optifoam to wounds b/l Continue multipodus boots at all times while in bed Podiatry to follow patient while in house <Maritza Whitney - Last Filed: 12/06/17 15:32> Objective - Vital Signs/Intake and Output Vital Signs (last 24 hours): Temp Pulse Resp BP Pulse Ox 98.0 F 66 18 91/52 L 94 L 12/06/17 12:00 12/06/17 12:00 12/06/17 12:00 12/06/17 12:00 12/06/17 06:00 Intake and Output: 12/06/17 12/06/17 06:59 18:59 Intake Total 100 540 Output Total 400 Balance 100 140 - Medications Medications: Current Medications Furosemide (Lasix) 20 mg IVP Q12 [facility] Last Admin: 12/06/17 10:01 Dose: 20 mg Insulin Human Regular (Humulin R Med) 0 units SC ACHS [facility] PRN Reason: Protocol Last Admin: 12/06/17 11:43 Dose: Not Given Levothyroxine Sodium (Synthroid) 75 mcg PO 0600 [facility] Last Admin: 12/06/17 06:02 Dose: 75 mcg Pantoprazole Sodium (Protonix Ec Tab) 40 mg PO DAILY [facility] Last Admin: 12/06/17 10:01 Dose: 40 mg Sildenafil Citrate (Revatio) 20 mg PO BID [facility] Last Admin: 12/06/17 10:01 Dose: 20 mg Sodium Bicarbonate (Sodium Bicarbonate Tab) 1,300 mg PO TID [facility] Last Admin: 12/06/17 13:49 Dose: 1,300 mg - Labs Labs: 12/06/17 09:00 12/06/17 09:00 PT 14.6 SECONDS (9.4-12.5) H 11/30/17 19:30 INR 1.27 (0.93-1.08) H 11/30/17 19:30 APTT 31.1 Seconds (25.1-36.5) 11/30/17 19:30 Attending/Attestation - Attestation I have personally seen and examined this patient.: Yes I have fully participated in the care of the patient.: Yes I have reviewed all pertinent clinical information, including history, physical exam and plan: Yes
[2017-12-03 18:36] LABS: URINE APPEARANCE CLEAR (CLEAR); URINE BILIRUBIN NEGATIVE (NEGATIVE); URINE BLOOD TRACE-INTACT (NEGATIVE); URINE COLOR YELLOW (YELLOW); URINE GLUCOSE (UA) NEGATIVE (NEGATIVE); URINE LEUKOCYTE ESTERASE TRACE Leu/uL (NEGATIVE); URINE NITRATE NEGATIVE (NEGATIVE); URINE PROTEIN TRACE mg/dL (<30 mg/dL); URINE UROBILINOGEN 0.2 E.U./dL (<1 E.U./dL)
[2017-12-03 18:40] LABS: URINE BACTERIA FEW (NEG); URINE EPITHELIAL CELLS 0 - 2 /hpf (0-5); URINE RBC 0 - 2 /hpf (0-2)
--- NOTE | 2017-12-03 19:15 | PN ---
DATE: 12/03/2017 SUBJECTIVE: The patient is seen lying in bed. Family member is at bedside. He is awake. He is alert. He is comfortable. He does not appear to be in any kind of distress. PHYSICAL EXAMINATION: VITAL SIGNS: Blood pressure 118/70, heart rate 68, respiratory rate 20, temperature 97.6. HEENT: Normocephalic, atraumatic. NECK: Supple, no JVD. LUNGS: Bilateral equal air entry, no rales. CARDIAC: S1 and S2, regular rate and rhythm, no murmur, no rub. ABDOMEN: Obese, distended, soft, nontender, bowel sounds present. EXTREMITIES: 2+ pitting edema of the lower extremities, dressings are loose on both feet. INTAKE AND OUTPUT: 2531/1400. LABORATORY DATA: WBC 8.8, hemoglobin 9.0, hematocrit 28, platelets 169. Sodium 133, potassium 3.9, chloride 100, CO2 20, BUN 126, creatinine 2.4, glucose 168, calcium 8.1, albumin 2.6, corrected calcium is 9.1. 24-hour urine shows creatinine clearance of 26. Urine protein of 288. CURRENT MEDICATIONS: Insulin, Protonix, Revatio, D5W with 1 amp of bicarb at 60, Synthroid. ASSESSMENT: 1. Acute kidney injury superimposed on chronic kidney disease stage IV, resolving. Creatinine is actually better than baseline. BUN is still high. 2. Severe anemia (?) secondary to gastrointestinal bleed versus hematuria. 3. Myelodysplastic syndrome. 4. Mental retardation. 5. Mild hyponatremia. 6. Chronic anemia secondary to myelodysplastic syndrome and renal insufficiency. PLAN: 1. Discontinue IV fluids. 2. Stool occults x3. 3. Check iron stores. 4. Dr. Joe will follow the patient from tomorrow since that is his primary stone polisher hand. Ruth Layton MD
[2017-12-04] MEDS: Levothyroxine 75 MCG TAB PO SCH (05:56)
[2017-12-04 07:13] LABS: BASO # 0.36 K/mm3 (0.0-2.0); BASO % 3.4 % (0.0-3.0); EOS # 0.1 (0.0-0.7); EOS % 1.3 % (1.5-5.0); GRAN # 7.79 (1.4-6.5); GRAN % 73.5 % (50.0-68.0); HEMOGLOBIN 8.7 g/dL (14.0-18.0); LYMPH # 0.8 (1.2-3.4); LYMPH % 7.2 % (22.0-35.0); MEAN CELL VOLUME 81.4 fl (80.0-105.0); MEAN CORPUSCULAR HEMOGLOBIN 26.9 pg (25.0-35.0); MEAN CORPUSCULAR HGB CONC 33.1 g/dl (31.0-37.0); MEAN PLATELET VOLUME 8.8 fl (7.0-11.0); MONO # 1.6 (0.1-0.6); MONO % 14.6 % (1.0-6.0); PLATELET COUNT 139 10^3/uL (120.0-450.0); RBC 3.23 10^6/uL (3.5-6.1); RED CELL DISTRIBUTION WIDTH 17.1 % (11.5-14.5); WHITE BLOOD COUNT 10.6 10^3/ul (4.5-11.0)
[2017-12-04 07:30] LABS: IRON 39 ug/dL (45-180)
[2017-12-04 07:35] LABS: ALB/GLOB RATIO 0.8 (1.1-1.8); ALBUMIN 2.6 g/dL (3.0-4.8); CALCIUM 8.2 mg/dL (8.4-10.5)
--- NOTE | 2017-12-04 07:36 | CP.PCM.PN ---
Subjective - Date & Time of Evaluation Date of Evaluation: 12/04/17 Time of Evaluation: 07:00 - Subjective Subjective: Stable on 3R. No CP or SOB. S/P transfusions. V/S noted. AF PE: Lungs: rhonchi Cor.: irreg S1S2 Abd: + ascites Ext: + edema Neuro: alert I/O= 2630/1400 Labs noted: H/H 8.7/26.3 todays BMP pending. 12/03 Cr=2.4 BC X2 NG at 3 days Objective - Vital Signs/Intake and Output Vital Signs (last 24 hours): Temp Pulse Resp BP Pulse Ox 97.0 F L 68 18 118/60 97 12/04/17 06:00 12/04/17 06:00 12/04/17 06:00 12/04/17 06:00 12/04/17 06:00 Intake and Output: 12/04/17 12/04/17 06:59 18:59 Intake Total 2630 Output Total 1400 Balance 1230 - Medications Medications: Current Medications Insulin Human Regular (Humulin R Med) 0 units SC ACHS [facility] PRN Reason: Protocol Last Admin: 12/03/17 23:00 Dose: Not Given Levothyroxine Sodium (Synthroid) 75 mcg PO 0600 [facility] Last Admin: 12/04/17 05:56 Dose: 75 mcg Pantoprazole Sodium (Protonix Ec Tab) 40 mg PO DAILY [facility] Last Admin: 12/03/17 09:31 Dose: 40 mg Sildenafil Citrate (Revatio) 20 mg PO BID [facility] Last Admin: 12/03/17 17:29 Dose: 20 mg - Labs Labs: 12/04/17 06:30 12/03/17 05:45 PT 14.6 SECONDS (9.4-12.5) H 11/30/17 19:30 INR 1.27 (0.93-1.08) H 11/30/17 19:30 APTT 31.1 Seconds (25.1-36.5) 11/30/17 19:30 Assessment and Plan - Assessment and Plan (Free Text) Assessment: Hemoptysis/Hemetemesis Right Heart Failure AF Acute on chronic kidney disease MDS with severe anemia/S/P Transfusions Echo: Mild LVD, Severe TR and PH, mod. MR HBP H/O Tobacco and ETOH use Plan: As per Renal, Heme, Podiatry, Pulm., Dr. Louis Monitor: I/O, labs, H/H, renal fx., sats., etc. OOB as graciela./PT
[2017-12-04 07:41] LABS: % IRON SATURATION 20 % (20-55); TOTAL IRON BINDING CAPACITY 199 ug/dL (261-462)
--- NOTE | 2017-12-04 08:39 | PN ---
DATE: 12/03/2017 HEMATOLOGY PROGRESS NOTE This is a male with myelodysplastic syndrome. I received his blood transfusion yesterday and his hemoglobin went up from 6.9 to 9. He receives Procrit 60,000 units between every 1 and every 2 weeks. He is due for this. I am going to give him the Aranesp 100 mg subcutaneously today to keep him steady with this medication and we will continue to follow his blood counts. Andres Constantino MD
[2017-12-04 08:57] LABS: BAND 8 % (0-2); LYMPHOCYTE 6 % (22.0-35.0); METAMYELOCYTE 4 %; MONOCYTE 8 % (1.0-6.0); MYELOCYTE 1 %; NEUTROPHIL 73 % (50.0-70.0); PLATELET ESTIMATE NORMAL (NORMAL)
[2017-12-04] MEDS: Insulin Reg-MEDIUM-Coverage SC SCH ×4 (09:42→21:22)
[2017-12-04] MEDS: Pantoprazole 40 mg EC Tab PO SCH (09:42)
[2017-12-04] MEDS: Sildenafil 20 MG TAB PO SCH ×2 (09:42→18:13)
--- NOTE | 2017-12-04 09:44 | PN ---
DATE: 12/04/2017 PULMONARY NOTE SUBJECTIVE: The patient appears comfortable this morning. He is not short of breath at rest. PHYSICAL EXAMINATION: VITALS: Temperature is 97.0, pulse 68, respirations 18, blood pressure 118/60. Oxygen saturation on room air is 97-98%. HEENT: Normocephalic, atraumatic. No JVD. CARDIOVASCULAR: Systolic ejection murmur at the lower left sternal border. Questionable S3 gallop. LUNGS: Decreased breath sounds at the bases. No rhonchi. No wheezing. EXTREMITIES: No clubbing, cyanosis or edema. Calves are nontender to palpation. GI: Abdomen is soft, nontender, nondistended. Bowel sounds are positive. SKIN: No acute rash. NEUROLOGIC: Limited at the present time. IMPRESSION: 1. Epistaxis - resolved. 2. Chronic anemia. 3. Acute on chronic kidney disease. 4. Congestive heart failure. 5. Pulmonary hypertension. 6. Myelodysplastic syndrome. PLAN: The patient appears very comfortable this morning. He is not short of breath at rest. He does state to feeling much better overall. On physical exam, there is no bronchospasm noted. In addition, the oxygen saturation on room air is 97-98%. I will continue the patient on his Revatio - for his pulmonary hypertension. Inputs by Cardiology and Renal are noted. Repeat a.m. labs are pending. Clinical status of the patient is certainly improved - compared to the initial presentation. However, again, the future status/prognosis for this patient remains very guarded. I will discuss the above with the attending physician. Carlos Sandoval MD MTDJaylene
--- NOTE | 2017-12-04 10:20 | CP.PCM.PN ---
<Naresh Aaron - Last Filed: 12/04/17 14:35> Subjective - Date & Time of Evaluation Date of Evaluation: 12/04/17 Time of Evaluation: 10:19 - Subjective Subjective: Podiatry Progress Note - Dr. Whitney 77 year old male patient PMHx CHF seen and evaluated at bedside for bilateral foot wounds. Patient resting comfortably. No acute events overnight. No complaints to bilateral lower extremities however is apprehensive to have his feet examined. Denies N/V/F/D/C/SOB/calf pain. Objective - Vital Signs/Intake and Output Vital Signs (last 24 hours): Temp Pulse Resp BP Pulse Ox 97.0 F L 68 18 118/60 97 12/04/17 06:00 12/04/17 06:00 12/04/17 06:00 12/04/17 06:00 12/04/17 06:00 Intake and Output: 12/04/17 12/04/17 06:59 18:59 Intake Total 2630 Output Total 1400 Balance 1230 - Medications Medications: Current Medications Insulin Human Regular (Humulin R Med) 0 units SC ACHS [facility] PRN Reason: Protocol Last Admin: 12/04/17 09:42 Dose: 1 units Levothyroxine Sodium (Synthroid) 75 mcg PO 0600 [facility] Last Admin: 12/04/17 05:56 Dose: 75 mcg Pantoprazole Sodium (Protonix Ec Tab) 40 mg PO DAILY [facility] Last Admin: 12/04/17 09:42 Dose: 40 mg Sildenafil Citrate (Revatio) 20 mg PO BID [facility] Last Admin: 12/04/17 09:42 Dose: 20 mg - Labs Labs: 12/04/17 06:30 12/04/17 06:30 PT 14.6 SECONDS (9.4-12.5) H 11/30/17 19:30 INR 1.27 (0.93-1.08) H 11/30/17 19:30 APTT 31.1 Seconds (25.1-36.5) 11/30/17 19:30 - Constitutional Appears: Well, Non-toxic, No Acute Distress - Extremities Exam Additional comments: Bilateral LE exam: Patient resting in bed with externally rotated bilateral lower extremities and knees flexed 90 degrees; appears to be semi-rigid as patient withdraws to this position VASC: DP/PT pulses are palpable 2/4, Cap refill time: < 3 sec to all digits, Temp gradient: warm to warm from proximal to distal, +1 pitting edema noted on the dorsum of the feet as well as distal leg DERM: Eschars noted on the lateral aspect of the right foot at the heel, base of the 5th metatarsal and head of the 5th metatarsal - all appear as a nonstagable deep tissue injury secondary to the pressure point in bed, hyperpigmented skin is intact with no break, no clinical suspicion of active infection; Left plantar-posterior fluid filled blister with small deroofing of the skin noted, wound base is hyperpigmented due to deep tissue injury, no drainage present this visit, no yessenia-wound erythema, no tunneling, no undermining, no probe to bone, no malodor, no clinical suspicion of active infection. Fluid filled bullae x2 noted to left plantar medial arch with intact roof. NEURO: Unable to assess ORTHO: Pain on palpation noted to deep tissue injuries b/l. - Neurological Exam Neurological Exam: Alert, Awake, Oriented x3 - Psychiatric Exam Psychiatric exam: Normal Affect, Normal Mood Assessment and Plan - Assessment and Plan (Free Text) Assessment: 77 year old male patient with PMHx of CHF with multiple deep tissue injuries to feet b/l Plan: Patient seen and evaluated Discussed with attending, Dr. Whitney Afebrile, WBC 10.6 Wounds appear to be stable at this time Continue local wound care - optifoam to wounds b/l Continue multipodus boots at all times while in bed Podiatry will continue to follow patient while in house <Maritza Whitney - Last Filed: 12/06/17 15:34> Objective - Vital Signs/Intake and Output Vital Signs (last 24 hours): Temp Pulse Resp BP Pulse Ox 98.0 F 66 18 91/52 L 94 L 12/06/17 12:00 12/06/17 12:00 12/06/17 12:00 12/06/17 12:00 12/06/17 06:00 Intake and Output: 12/06/17 12/06/17 06:59 18:59 Intake Total 100 540 Output Total 400 Balance 100 140 - Medications Medications: Current Medications Furosemide (Lasix) 20 mg IVP Q12 [facility] Last Admin: 12/06/17 10:01 Dose: 20 mg Insulin Human Regular (Humulin R Med) 0 units SC ACHS [facility] PRN Reason: Protocol Last Admin: 12/06/17 11:43 Dose: Not Given Levothyroxine Sodium (Synthroid) 75 mcg PO 0600 [facility] Last Admin: 12/06/17 06:02 Dose: 75 mcg Pantoprazole Sodium (Protonix Ec Tab) 40 mg PO DAILY [facility] Last Admin: 12/06/17 10:01 Dose: 40 mg Sildenafil Citrate (Revatio) 20 mg PO BID [facility] Last Admin: 12/06/17 10:01 Dose: 20 mg Sodium Bicarbonate (Sodium Bicarbonate Tab) 1,300 mg PO TID [facility] Last Admin: 12/06/17 13:49 Dose: 1,300 mg - Labs Labs: 12/06/17 09:00 12/06/17 09:00 PT 14.6 SECONDS (9.4-12.5) H 11/30/17 19:30 INR 1.27 (0.93-1.08) H 11/30/17 19:30 APTT 31.1 Seconds (25.1-36.5) 11/30/17 19:30 Attending/Attestation - Attestation I have personally seen and examined this patient.: Yes I have fully participated in the care of the patient.: Yes I have reviewed all pertinent clinical information, including history, physical exam and plan: Yes
--- NOTE | 2017-12-04 15:25 | PN ---
DATE: LOCATION: The patient in room 377, bed 1. SUBJECTIVE: The patient was initially admitted with epistaxis likely secondary to platelet dysfunction from uremia. The patient had; 1. Elevated BUN of 141 when he was admitted. 2. Myelodysplastic syndrome, being followed by Dr. Constantino. 3. Anemia of chronic disease. 4. Hyperkalemia. 5. CKD stage 4. 6. Acute on chronic diastolic heart failure. 7. Pulmonary hypertension which is severe. The patient has no complaints at this time and there have been no acute events overnight. OBJECTIVE: VITAL SIGNS: Temperature of 97.0, pulse rate of 68, blood pressure 118/60, respiratory rate of 18 with an O2 saturation of 97% on room air. HEENT: Unremarkable. NECK: Supple with a full range of motion. LUNGS: Clear to auscultation and percussion bilaterally. HEART: Regular rate and rhythm. ABDOMEN: Soft, nontender, bowel sounds are normoactive. NEUROLOGICAL: There are no focal deficits. LABORATORY DATA: Currently, H and H 8.7 and 26.3, where the patient normally has a baseline of 8. Chemistry shows BUN of 125, creatinine of 2.4. Random glucose of 154. Calcium of 8.2. Iron 39, TIBC of 199. MEDICATIONS: The patient will be continued with IV fluids, iron replenishment. CURRENT DIAGNOSES: 1. Renal failure. 2. Hypothyroid. 3. Iron deficiency anemia. Miguel Louis MD
--- NOTE | 2017-12-04 23:01 | CP.PCM.PN ---
Subjective - Date & Time of Evaluation Date of Evaluation: 12/04/17 Time of Evaluation: 11:00 - Subjective Subjective: Taking over renal management from Drs. Layton/Christa; 77 yo M w/ pmh of CHF w/ severe pulmonary htn and recurrent abd ascites, CKD IV , myelodysplastic disorder with persistent anemia, following in our office for CKD management, admitted from Rehab facility (was discharged there from [facility] after admission with decompensated CHF) with oropharyngeal bleeding/epistaxis and RAYMOND; Patient is more confused than usual; cannot examine patient without him complaining about pain; has not been eating much per nursing staff; Objective - Vital Signs/Intake and Output Vital Signs (last 24 hours): Temp Pulse Resp BP Pulse Ox 98.2 F 71 19 110/55 L 100 12/04/17 18:00 12/04/17 22:00 12/04/17 18:00 12/04/17 18:00 12/04/17 18:00 - Medications Medications: Current Medications Insulin Human Regular (Humulin R Med) 0 units SC ACHS [facility] PRN Reason: Protocol Last Admin: 12/04/17 21:22 Dose: Not Given Levothyroxine Sodium (Synthroid) 75 mcg PO 0600 [facility] Last Admin: 12/04/17 05:56 Dose: 75 mcg Pantoprazole Sodium (Protonix Ec Tab) 40 mg PO DAILY [facility] Last Admin: 12/04/17 09:42 Dose: 40 mg Sildenafil Citrate (Revatio) 20 mg PO BID [facility] Last Admin: 12/04/17 18:13 Dose: 20 mg - Labs Labs: 12/04/17 06:30 12/04/17 06:30 PT 14.6 SECONDS (9.4-12.5) H 11/30/17 19:30 INR 1.27 (0.93-1.08) H 11/30/17 19:30 APTT 31.1 Seconds (25.1-36.5) 11/30/17 19:30 - Constitutional Appears: Non-toxic, No Acute Distress - Eye Exam Eye Exam: Normal appearance. absent: Scleral icterus - ENT Exam ENT Exam: Mucous Membranes Moist - Respiratory Exam Respiratory Exam: Clear to Ausculation Bilateral. absent: Respiratory Distress - Cardiovascular Exam Cardiovascular Exam: RRR, +S1, +S2 - GI/Abdominal Exam GI & Abdominal Exam: Soft. absent: Distended, Tenderness - Extremities Exam Additional comments: moderate b/l lower leg edema; - Neurological Exam Neurological Exam: Alert, Awake - Psychiatric Exam Psychiatric exam: Agitated - Skin Skin Exam: Warm. absent: Cyanosis Assessment and Plan (1) RAYMOND (acute kidney injury) Assessment & Plan: Serum creatinine improved to baseline (~2.4); otherwise stable electrolyte and volume status (peripheral edema is chronic); IVF held; monitor; Status: Acute (2) CKD (chronic kidney disease), stage IV Assessment & Plan: Mostly non-proteinuric kidney disease of cardiorenal etiology in the setting of severe pulmonary htn; CrCl 26 ml/min is relatively stable; need to avoid over- diuresis (not yet started); Status: Acute (3) CHF (congestive heart failure) Assessment & Plan: R sided dysfunction secondary to severe pulm htn; was on aggressive diuretic regimen of PO lasix 80 mg bid and aldactone 25 mg bid prior to recent CHF exacerbation admission; was tolerating the regimen well with his weekly abdominal paracentesis catheter drainage having decreased to about 300 cc and SBP ~120; -will need to restart diuretics at some point once there is adequate PO intake; will need to tolerate some degree of peripheral edema as over-diuresis will worsen renal function; Status: Acute (4) Chronic kidney disease-mineral and bone disorder Assessment & Plan: PTH 70, vitamin D 25-OH level replete; monitor for now, no need to start ergocalciferol; Status: Chronic (5) Hyperkalemia Assessment & Plan: Patient was on kayexalate 3 times per week previously, but while on aldactone; K currently stable, monitor; Status: Chronic (6) Anemia Assessment & Plan: s/p 4 u prbc; was on EPO as outpatient; f/u with hematology; Status: Acute (7) Azotemia Assessment & Plan: BUN only mildly improved but remains significantly elevated from baseline and may represent combination of volume depletion and continued upper GI blood metabolism from his epistaxis/oropharyngeal bleed; continue to monitor cbc; Status: Acute - Assessment and Plan (Free Text) Assessment: Thank you for allowing us to participate in the care of Mr. Minor, we will continue to follow.
[2017-12-05] MEDS: Levothyroxine 75 MCG TAB PO SCH (05:32)
--- NOTE | 2017-12-05 07:23 | CP.PCM.PN ---
Subjective - Date & Time of Evaluation Date of Evaluation: 12/05/17 Time of Evaluation: 07:00 - Subjective Subjective: Stable on 3R. Confused. V/S noted. AF PE: Lungs: rhonchi Cor.: irreg S1S2 Abd: + ascites Ext: + edema Neuro: alert Labs noted: 12/04 Cr=2.4 BC X2 NG at 4 days Objective - Vital Signs/Intake and Output Vital Signs (last 24 hours): Temp Pulse Resp BP Pulse Ox 97.8 F 67 18 108/56 L 96 12/05/17 05:47 12/05/17 05:48 12/05/17 05:47 12/05/17 05:47 12/05/17 05:47 - Medications Medications: Current Medications Insulin Human Regular (Humulin R Med) 0 units SC ACHS [facility] PRN Reason: Protocol Last Admin: 12/04/17 21:22 Dose: Not Given Levothyroxine Sodium (Synthroid) 75 mcg PO 0600 [facility] Last Admin: 12/05/17 05:32 Dose: 75 mcg Pantoprazole Sodium (Protonix Ec Tab) 40 mg PO DAILY [facility] Last Admin: 12/04/17 09:42 Dose: 40 mg Sildenafil Citrate (Revatio) 20 mg PO BID [facility] Last Admin: 12/04/17 18:13 Dose: 20 mg - Labs Labs: 12/04/17 06:30 12/04/17 06:30 PT 14.6 SECONDS (9.4-12.5) H 11/30/17 19:30 INR 1.27 (0.93-1.08) H 11/30/17 19:30 APTT 31.1 Seconds (25.1-36.5) 11/30/17 19:30 Assessment and Plan - Assessment and Plan (Free Text) Assessment: Hemoptysis/Hemetemesis Right Heart Failure AF Acute on chronic kidney disease MDS with severe anemia/S/P Transfusions Echo: Mild LVD, Severe TR and PH, mod. MR HBP H/O Tobacco and ETOH use Plan: Await A labs today. As per Renal, Heme, Podiatry, Pulm., Drs. Louis Monitor: I/O, labs, H/H, renal fx., sats., etc. OOB as graciela./PT
[2017-12-05 08:26] LABS: HEMOGLOBIN 8.9 g/dL (14.0-18.0); MEAN CELL VOLUME 82.1 fl (80.0-105.0); MEAN CORPUSCULAR HGB CONC 32.8 g/dl (31.0-37.0); MEAN PLATELET VOLUME 9.1 fl (7.0-11.0); PLATELET COUNT 132 10^3/uL (120.0-450.0); RED CELL DISTRIBUTION WIDTH 17.2 % (11.5-14.5); WHITE BLOOD COUNT 13.9 10^3/ul (4.5-11.0)
[2017-12-05] MEDS: Insulin Reg-MEDIUM-Coverage SC SCH ×4 (08:50→22:02)
[2017-12-05 08:53] LABS: ALB/GLOB RATIO 0.8 (1.1-1.8); ALBUMIN 2.5 g/dL (3.0-4.8); CALCIUM 8.4 mg/dL (8.4-10.5)
--- NOTE | 2017-12-05 09:20 | PN ---
DATE: 12/05/2017 PULMONARY NOTE SUBJECTIVE: The patient appears very comfortable this morning. He is not short of breath at rest. PHYSICAL EXAMINATION: VITAL SIGNS: Temperature is 97.8, pulse 67, respirations 18, blood pressure 108/56. Oxygen saturation on room air is 96%. HEENT: Normocephalic, atraumatic. No JVD. CARDIOVASCULAR: Systolic ejection murmur at the lower left sternal border. Questionable S3 gallop. LUNGS: Decreased breath sounds at the bases. No rhonchi. No wheezing. EXTREMITIES: No clubbing, cyanosis or edema. Calves are nontender to palpation. GI: Abdomen is soft, nontender and nondistended. Bowel sounds are positive. SKIN: No acute rash. NEUROLOGIC: Limited at the present time. IMPRESSION: 1. Epistaxis - resolved. 2. Chronic anemia. 3. Acute on chronic kidney disease. 4. Congestive heart failure. 5. Pulmonary hypertension. 6. Myelodysplastic syndrome. PLAN: The patient appears very comfortable this morning. He is not short of breath at rest. He does state to feeling much better overall. On physical exam, there is no bronchospasm noted. In addition, the oxygen saturation on room air is 96%. I will continue with the aspiration precautions for now. I will also continue the patient on his sildenafil - for his pulmonary hypertension. Clinical status of the patient is significantly improved overall. Inputs by Cardiology, Renal and Hematology are noted. Unfortunately, the future status/prognosis for this patient does remain very guarded. I will discuss the above with the attending physician. Carlos Sandoval MD MTDD
--- NOTE | 2017-12-05 10:03 | PN ---
SUBJECTIVE: The patient was seen and examined at the bedside on the remote telemetry dempsey. No acute events overnight. He remains afebrile and hemodynamically stable. The patient is noted to have periods of confusion intermittently but this morning appears to be at his baseline mental status. He states he feels well and is asking when he will be discharged. He denies any further episodes of hemoptysis, hematemesis or overt blood loss. PHYSICAL EXAMINATION VITAL SIGNS: Temperature 97.8, pulse 67, blood pressure 108/56, respiratory rate 18, oxygen saturation 96% on room air. GENERAL: No apparent distress. HEENT: PERRL. EOMI. No scleral icterus. Mild conjunctival pallor is noted. NECK: No JVD. No bruits. LUNGS: Decreased breath sounds at the bases with a few scattered rhonchi. CARDIOVASCULAR: Regular rate and rhythm. Normal S1 and S2. Grade II/ systolic murmur to the left upper sternal border. ABDOMEN: Normoactive bowel sounds, soft, nontender. Mildly distended. No rigidity. No tympany. Paracentesis access appears clean, dry, and intact. EXTREMITIES: Trace to 1+ bilateral lower extremity edema. NEUROLOGIC: Awake, alert, and oriented x3. No focal motor deficits. LABORATORY DATA: Morning labs are pending. ASSESSMENT: The patient is a 77 year old man with multiple medical comorbidities including chronic diastolic heart failure with severe pulmonary hypertension, history of recurrent ascites secondary to underlying right heart failure, CKD stage IV, anemia of chronic disease, myelodysplastic syndrome, AFib and hypothyroidism who is seen from [facility] for evaluation of 2 episodes of epistaxis and was admitted for management of hyperkalemia, RAYMOND on CKD and acute on chronic diastolic heart failure exacerbation. PLAN: 1. Epistaxis, resolved. There have been no further witnessed bleeding episodes since admission. The patient has been transfused a total of 4 units PRBCs during this hospital stay. We will continue to monitor CBC daily. Stool occult blood is pending. 2. Myelodysplastic syndrome. Input from Dr. Constantino noted and appreciated. 3. Anemia of chronic disease secondary to the patient's underlying MDS. The patient has a baseline Hb of 7-8. No evidence of active bleed. Continue to monitor CBC daily. 4. Hyperkalemia, resolved. 5. CKD stage IV. Input from Dr. Joe noted and appreciated. Continue care as per Dr. Joe. 6. [id number] diastolic heart failure exacerbation. Input from Dr. Johns noted. The patient remains off Lasix. We will need to discuss with the Cardiology and Nephrology teams timing to reinitiate diuretic therapy. 7. Severe pulmonary hypertension. Input from Dr. Sandoval appreciated and the patient remains on Sildenafil 20 mg p.o. b.i.d. 8. Hypothyroidism. Continue Synthroid 75 mcg p.o. daily. 9. Hypertension. The patient remains off antihypertensives. 10. BPH. The patient remains with Hickman catheter in place. Continue to hold Flomax. 11. GERD. Continue Protonix 40 mg p.o. daily. 12. History of recurrent ascites secondary to underlying right heart failure/ severe pulmonary hypertension. The patient has an abdominal paracentesis port in place, which may be utilized as needed. 13. Prophylaxis. Continue Protonix for GI prophylaxis and SCDs for DVT prophylaxis. CODE STATUS: Full code. Jan Louis MD MTDJaylene
[2017-12-05] MEDS: Sildenafil 20 MG TAB PO SCH ×2 (10:14→17:59)
[2017-12-05] MEDS: Pantoprazole 40 mg EC Tab PO SCH (10:14)
--- NOTE | 2017-12-05 11:11 | CP.PCM.PN ---
<Naresh Aaron - Last Filed: 12/05/17 12:31> Subjective - Date & Time of Evaluation Date of Evaluation: 12/05/17 Time of Evaluation: 11:11 - Subjective Subjective: Podiatry Progress Note - Dr. Whitney 77 year old male patient PMHx CHF seen and evaluated at bedside for bilateral foot wounds. Patient sleeping at time of visit. NAEON. Multipodus boots present bilaterally. Patient apprehensive to have feet examined secondary to pain; refusing examination of left foot today. Denies N/V/F/D/C/SOB/calf pain. Objective - Vital Signs/Intake and Output Vital Signs (last 24 hours): Temp Pulse Resp BP Pulse Ox 97.8 F 67 18 108/56 L 96 12/05/17 05:47 12/05/17 05:48 12/05/17 05:47 12/05/17 05:47 12/05/17 05:47 Intake and Output: 12/05/17 12/05/17 06:59 18:59 Intake Total 240 Output Total 400 Balance -160 - Medications Medications: Current Medications Insulin Human Regular (Humulin R Med) 0 units SC ACHS [facility] PRN Reason: Protocol Last Admin: 12/05/17 08:50 Dose: 1 units Levothyroxine Sodium (Synthroid) 75 mcg PO 0600 [facility] Last Admin: 12/05/17 05:32 Dose: 75 mcg Pantoprazole Sodium (Protonix Ec Tab) 40 mg PO DAILY [facility] Last Admin: 12/05/17 10:14 Dose: 40 mg Sildenafil Citrate (Revatio) 20 mg PO BID [facility] Last Admin: 12/05/17 10:14 Dose: 20 mg - Labs Labs: 12/05/17 08:00 12/05/17 08:00 PT 14.6 SECONDS (9.4-12.5) H 11/30/17 19:30 INR 1.27 (0.93-1.08) H 11/30/17 19:30 APTT 31.1 Seconds (25.1-36.5) 11/30/17 19:30 - Constitutional Appears: Well, Non-toxic, No Acute Distress - Extremities Exam Additional comments: Patient resting in bed with externally rotated bilateral lower extremities and knees flexed 90 degrees; appears to be semi-rigid as patient withdraws to this position RLE exam; patient refusing to remove multipodus boot to left foot VASC: DP and PT pulses palpable 2/4. CFT <3 seconds to all digits. Temperature gradient warm to warm from proximal to distal. +1 pitting edema to dorsum of foot remains. NEURO: Unable to assess DERM: DTI noted to lateral right foot at heel, base of 5th metatarsal, and head of 5th metatarsal - all appear unstagable secondary to pressure, hyperpigmentedskin is intact with no break in soft tissue envelope ORTHO: Pain on palpation noted to deep tissue injuries - Neurological Exam Neurological Exam: Alert, Awake - Psychiatric Exam Psychiatric exam: Anxious Assessment and Plan - Assessment and Plan (Free Text) Assessment: 77 year old male patient with PMHx of CHF with multiple deep tissue injuries to feet b/l Plan: Patient seen and evaluated Discussed with attending, Dr. Whitney Afebrile, WBC increased 13.9 Patient refusing examination of left foot despite maximal encouragement Right foot wounds appear to be stable at this time Continue QD wound care - optifoam b/l Continue multipodus boots at all times while in bed Podiatry will continue to follow patient while in house <Maritza Whitney - Last Filed: 12/06/17 15:36> Objective - Vital Signs/Intake and Output Vital Signs (last 24 hours): Temp Pulse Resp BP Pulse Ox 98.0 F 66 18 91/52 L 94 L 12/06/17 12:00 12/06/17 12:00 12/06/17 12:00 12/06/17 12:00 12/06/17 06:00 Intake and Output: 12/06/17 12/06/17 06:59 18:59 Intake Total 100 540 Output Total 400 Balance 100 140 - Medications Medications: Current Medications Furosemide (Lasix) 20 mg IVP Q12 [facility] Last Admin: 12/06/17 10:01 Dose: 20 mg Insulin Human Regular (Humulin R Med) 0 units SC ACHS [facility] PRN Reason: Protocol Last Admin: 12/06/17 11:43 Dose: Not Given Levothyroxine Sodium (Synthroid) 75 mcg PO 0600 [facility] Last Admin: 12/06/17 06:02 Dose: 75 mcg Pantoprazole Sodium (Protonix Ec Tab) 40 mg PO DAILY [facility] Last Admin: 12/06/17 10:01 Dose: 40 mg Sildenafil Citrate (Revatio) 20 mg PO BID [facility] Last Admin: 12/06/17 10:01 Dose: 20 mg Sodium Bicarbonate (Sodium Bicarbonate Tab) 1,300 mg PO TID [facility] Last Admin: 12/06/17 13:49 Dose: 1,300 mg - Labs Labs: 12/06/17 09:00 12/06/17 09:00 PT 14.6 SECONDS (9.4-12.5) H 11/30/17 19:30 INR 1.27 (0.93-1.08) H 11/30/17 19:30 APTT 31.1 Seconds (25.1-36.5) 11/30/17 19:30 Attending/Attestation - Attestation I have personally seen and examined this patient.: Yes I have fully participated in the care of the patient.: Yes I have reviewed all pertinent clinical information, including history, physical exam and plan: Yes
--- NOTE | 2017-12-05 12:41 | CP.PCM.PN ---
Subjective - Date & Time of Evaluation Date of Evaluation: 12/05/17 Time of Evaluation: 12:36 - Subjective Subjective: 77 yo M w/ pmh of CHF w/ severe pulm htn w/ recurrent ascites, CKD IV, admitted with oropharyngeal bleeding/epistaxis and RAYMOND; Per nursing staff, is eating well though needing to be fed; not getting out of bed; patient reports being in pain but cannot specify location; Objective - Vital Signs/Intake and Output Vital Signs (last 24 hours): Temp Pulse Resp BP Pulse Ox 97.8 F 67 18 108/56 L 96 12/05/17 05:47 12/05/17 05:48 12/05/17 05:47 12/05/17 05:47 12/05/17 05:47 Intake and Output: 12/05/17 12/05/17 06:59 18:59 Intake Total 240 Output Total 400 Balance -160 - Medications Medications: Current Medications Albumin Human (Albumin Human 25% (12.5 Gm/50 Ml)) 12.5 gm IV Q6H [facility] Stop: 12/06/17 06:46 Insulin Human Regular (Humulin R Med) 0 units SC ACHS [facility] PRN Reason: Protocol Last Admin: 12/05/17 08:50 Dose: 1 units Levothyroxine Sodium (Synthroid) 75 mcg PO 0600 [facility] Last Admin: 12/05/17 05:32 Dose: 75 mcg Pantoprazole Sodium (Protonix Ec Tab) 40 mg PO DAILY [facility] Last Admin: 12/05/17 10:14 Dose: 40 mg Sildenafil Citrate (Revatio) 20 mg PO BID [facility] Last Admin: 12/05/17 10:14 Dose: 20 mg - Labs Labs: 12/05/17 08:00 12/05/17 08:00 PT 14.6 SECONDS (9.4-12.5) H 11/30/17 19:30 INR 1.27 (0.93-1.08) H 11/30/17 19:30 APTT 31.1 Seconds (25.1-36.5) 11/30/17 19:30 - Constitutional Appears: Non-toxic, No Acute Distress - Eye Exam Eye Exam: absent: Scleral icterus - ENT Exam ENT Exam: Mucous Membranes Moist - Respiratory Exam Respiratory Exam: Clear to Ausculation Bilateral. absent: Respiratory Distress - Cardiovascular Exam Cardiovascular Exam: RRR, +S1, +S2 - GI/Abdominal Exam GI & Abdominal Exam: Distended, Soft. absent: Tenderness - Exam Exam: absent: Bladder Distension - Extremities Exam Additional comments: moderate leg edema b/l - Neurological Exam Neurological Exam: Alert, Awake - Psychiatric Exam Psychiatric exam: Agitated - Skin Skin Exam: Warm. absent: Cyanosis Assessment and Plan (1) RAYMOND (acute kidney injury) Assessment & Plan: RAYMOND, appears to be pre-renal etiology that improved with IVF and prbc transfusion; creat again increased today with BUN increasing further after IVF stopped; with likely cardiorenal etiology of CKD due to severe pulm htn, question is when to restart diuretics as patient was stable on high dose of lasix and spironolactone previously; -will give another volume challenge with IV albumin 12.5 g q6h x 4 doses and reassess tomorrow; Status: Acute (2) CKD (chronic kidney disease), stage IV Status: Acute (3) CHF (congestive heart failure) Assessment & Plan: Clinically asymptomatic but isn't mobile either; edema is chronic; -holding diuretic for now; Status: Acute (4) Chronic kidney disease-mineral and bone disorder Status: Chronic (5) Hyperkalemia Status: Chronic (6) Anemia Status: Acute (7) Azotemia Assessment & Plan: Appeared to be secondary to blood being absorbed in upper GI tract but hgb has been stable and stool neg for occult blood; giving volume challenge as above; Status: Acute
[2017-12-05 12:44] LABS: BAND 2 % (0-2); EOSINOPHIL 1 % (0.0-3.0); LYMPHOCYTE 3 % (22.0-35.0); METAMYELOCYTE 3 %; MONOCYTE 3 % (1.0-6.0); MYELOCYTE 4 %; NEUTROPHIL 84 % (50.0-70.0); PLATELET ESTIMATE NORMAL (NORMAL)
[2017-12-05] MEDS: Albumin Human 25% (12.5 gm/50 ml) IV SCH ×2 (14:51→17:59)
[2017-12-06] MEDS: Albumin Human 25% (12.5 gm/50 ml) IV SCH ×2 (01:18→06:02)
[2017-12-06] MEDS: Levothyroxine 75 MCG TAB PO SCH (06:02)
[2017-12-06] MEDS: Insulin Reg-MEDIUM-Coverage SC SCH ×4 (08:11→22:15)
[2017-12-06 09:24] LABS: BASO # 0.45 K/mm3 (0.0-2.0); BASO % 3.8 % (0.0-3.0); EOS # 0.2 (0.0-0.7); EOS % 1.4 % (1.5-5.0); GRAN # 8.53 (1.4-6.5); GRAN % 71.7 % (50.0-68.0); LYMPH # 0.7 (1.2-3.4); LYMPH % 5.8 % (22.0-35.0); MEAN CELL VOLUME 82.8 fl (80.0-105.0); MEAN CORPUSCULAR HEMOGLOBIN 27.5 pg (25.0-35.0); MEAN CORPUSCULAR HGB CONC 33.2 g/dl (31.0-37.0); MEAN PLATELET VOLUME 9.5 fl (7.0-11.0); MONO # 2.1 (0.1-0.6); MONO % 17.3 % (1.0-6.0); PLATELET COUNT 124 10^3/uL (120.0-450.0); RBC 2.91 10^6/uL (3.5-6.1); RED CELL DISTRIBUTION WIDTH 17.2 % (11.5-14.5); WHITE BLOOD COUNT 11.9 10^3/ul (4.5-11.0)
[2017-12-06 09:47] LABS: ALBUMIN 2.8 g/dL (3.0-4.8); CALCIUM 8.3 mg/dL (8.4-10.5)
[2017-12-06] MEDS: Pantoprazole 40 mg EC Tab PO SCH (10:01)
[2017-12-06] MEDS: Sildenafil 20 MG TAB PO SCH ×2 (10:01→18:17)
--- NOTE | 2017-12-06 11:11 | CP.PCM.PN ---
Subjective - Date & Time of Evaluation Date of Evaluation: 12/06/17 Time of Evaluation: 11:11 - Subjective Subjective: Podiatry Progress Note - Dr. Whitney 77 year old male patient PMHx CHF seen and evaluated at bedside for bilateral foot wounds. Patient awake and alert at time of visit, NAD. No acute events overnight. No pedal complaints currently however is still apprehensive to have feet examined. Denies N/V/F/D/C/SOB. Objective - Vital Signs/Intake and Output Vital Signs (last 24 hours): Temp Pulse Resp BP Pulse Ox 97.9 F 61 18 132/72 94 L 12/06/17 06:00 12/06/17 06:00 12/06/17 06:00 12/06/17 10:01 12/06/17 06:00 Intake and Output: 12/06/17 12/06/17 06:59 18:59 Intake Total 100 240 Balance 100 240 - Medications Medications: Current Medications Furosemide (Lasix) 20 mg IVP Q12 [facility] Last Admin: 12/06/17 10:01 Dose: 20 mg Insulin Human Regular (Humulin R Med) 0 units SC ACHS [facility] PRN Reason: Protocol Last Admin: 12/06/17 08:11 Dose: Not Given Levothyroxine Sodium (Synthroid) 75 mcg PO 0600 [facility] Last Admin: 12/06/17 06:02 Dose: 75 mcg Pantoprazole Sodium (Protonix Ec Tab) 40 mg PO DAILY [facility] Last Admin: 12/06/17 10:01 Dose: 40 mg Sildenafil Citrate (Revatio) 20 mg PO BID [facility] Last Admin: 12/06/17 10:01 Dose: 20 mg Sodium Bicarbonate (Sodium Bicarbonate Tab) 1,300 mg PO TID [facility] Last Admin: 12/06/17 10:01 Dose: 1,300 mg - Labs Labs: 12/06/17 09:00 12/06/17 09:00 PT 14.6 SECONDS (9.4-12.5) H 11/30/17 19:30 INR 1.27 (0.93-1.08) H 11/30/17 19:30 APTT 31.1 Seconds (25.1-36.5) 11/30/17 19:30 - Constitutional Appears: Well, Non-toxic, No Acute Distress - Extremities Exam Additional comments: Patient resting in bed with externally rotated bilateral lower extremities and knees flexed 90 degrees; appears to be semi-rigid as patient withdraws to this position. Multipodus boots present to bilateral LE. VASC: DP/PT pulses are palpable 2/4 b/l, Cap refill time: < 3 sec to all digits , Temp gradient: warm to warm from proximal to distal, +1 pitting edema noted to bilateral lower extremities. DERM: RLE - Unstageable deep tissue injuries noted to right heel, base of 5th metatarsal, head of 5th metatarsal; all noted to have intact roof. LLE - Heel ulceration with hardening eschar cap and evident demarcation with periwound erythema noted. Fluid-filled bullae x2 noted to plantar medial arch with intact roof. NEURO: Unable to assess ORTHO: Pain on palpation to deep tissue injuries and eschar b/l. - Neurological Exam Neurological Exam: Alert, Awake, Oriented x3 - Psychiatric Exam Psychiatric exam: Anxious Assessment and Plan - Assessment and Plan (Free Text) Assessment: 77 year old male patient with PMHx of CHF with multiple deep tissue injuries to feet b/l and necrotic eschar left heel. Plan: Patient seen and evaluated Discussed with attending, Dr. Whitney Afebrile, WBC increased at 11.9 however trending downwards (yesterday 13.9) Wounds appear to be stable at this time, left heel demarcating Continue local wound care - optifoam to wounds b/l Continue multipodus boots at all times while in bed Podiatry will continue to follow patient while in house
[2017-12-06 11:39] LABS: BODY FLUID TYPE PERITONEAL/ASCITES
--- NOTE | 2017-12-06 13:07 | CP.PCM.PN ---
Subjective - Date & Time of Evaluation Date of Evaluation: 12/06/17 Time of Evaluation: 08:20 - Subjective Subjective: Subjective: The patient was seen and examined on the remote tele dempsey. No acute events overnight. Objective: VS: T 97.9, P 68, BP 132/72, RR 20, O2 97% 2L NC Gen: NAD HEENT: no icterus, (+) conjunctival pallor Neck: no JVD Lungs: diminished BS to the bases with bibasilar crackles CV: irregularly irregular, normal S1, S2, Grade 2/6 MARGUERITE to LUSB Abd: soft, mildly distended, no rigidity, no tympany, paracentesis port is c/d/i Ext: 1+ b/l LE edema with chronic venous stasis changes Neuro: no deficits Labs: Reviewed and CBC with Hb of 8. CMP reviewed Assessment: The patient is a 77 yo man with multiple medical comorbidities who presented to evaluation of reported epistaxis/oropharyngeal bleed, RAYMOND on CKD and acute on chronic diastolic HF exacerbation. Plan: 1. Epistaxis/oropharyngeal bleed. Resolved and no further episodes of bleeding since admission. H/H at patient baseline. Stool occult blood negative 2. MDS. Continue care as per Dr. Constantino. 3. RAYMOND on CKD stage IV. Input from Dr. Joe appreciated and the patient has been restarted on Lasix 4. Anemia of chronic disease secondary to MDS. Labs with H/H at baseline. Continue to monitor CBC daily. 5. Hyperkalemia, resolved. 5. Acute on chronic diastolic HF. As above pt restarted on diuretics. Input from Dr Johns noted. 6. Severe pulmonary HTN. Input from Dr. Sandoval noted and appreciated. C/w Sildenafil 7. Hypothyroidism. C/w Synthroid 8. AFib. He remains rate controlled of meds. 9. BPH. Pt remains off flomax and with mccoy in place.. 10. GERD. Continue Protonix Code Status: Full Code Objective - Vital Signs/Intake and Output Vital Signs (last 24 hours): Temp Pulse Resp BP Pulse Ox 97.9 F 68 18 132/72 94 L 12/06/17 06:00 12/06/17 10:00 12/06/17 06:00 12/06/17 10:01 12/06/17 06:00 Intake and Output: 12/06/17 12/06/17 06:59 18:59 Intake Total 100 240 Balance 100 240 - Medications Medications: Current Medications Furosemide (Lasix) 20 mg IVP Q12 [facility] Last Admin: 12/06/17 10:01 Dose: 20 mg Insulin Human Regular (Humulin R Med) 0 units SC ACHS [facility] PRN Reason: Protocol Last Admin: 12/06/17 11:43 Dose: Not Given Levothyroxine Sodium (Synthroid) 75 mcg PO 0600 [facility] Last Admin: 12/06/17 06:02 Dose: 75 mcg Pantoprazole Sodium (Protonix Ec Tab) 40 mg PO DAILY [facility] Last Admin: 12/06/17 10:01 Dose: 40 mg Sildenafil Citrate (Revatio) 20 mg PO BID [facility] Last Admin: 12/06/17 10:01 Dose: 20 mg Sodium Bicarbonate (Sodium Bicarbonate Tab) 1,300 mg PO TID [facility] Last Admin: 12/06/17 10:01 Dose: 1,300 mg - Labs Labs: 12/06/17 09:00 12/06/17 09:00 PT 14.6 SECONDS (9.4-12.5) H 11/30/17 19:30 INR 1.27 (0.93-1.08) H 11/30/17 19:30 APTT 31.1 Seconds (25.1-36.5) 11/30/17 19:30
[2017-12-06 13:23] LABS: BF GROSS APPEARANCE CLEAR (CLEAR)
[2017-12-06 16:19] LABS: BAND 10 % (0-2); BASOPHIL 1 % (0.0-1.0); EOSINOPHIL 2 % (0.0-3.0); LYMPHOCYTE 5 % (22.0-35.0); METAMYELOCYTE 5 %; MONOCYTE 3 % (1.0-6.0); MYELOCYTE 5 %; NEUTROPHIL 69 % (50.0-70.0); PLATELET ESTIMATE NORMAL (NORMAL)
[2017-12-06 16:30] LABS: BODY FLUID MONO/MACROPHAGE 1 % (0-0); BODY FLUID RBC 79.8 /uL (0.0-0.0); BODY FLUID TOTAL COUNT 100 (0-0); BODY FLUID WBC 92.4 /uL (0.0-300.0)
--- NOTE | 2017-12-06 22:24 | CP.PCM.PN ---
Subjective - Date & Time of Evaluation Date of Evaluation: 12/06/17 Time of Evaluation: 11:00 - Subjective Subjective: Patient eating well per nursing staff; peritoneal drain aspirated, only ~10 cc drained; Objective - Vital Signs/Intake and Output Vital Signs (last 24 hours): Temp Pulse Resp BP Pulse Ox 98.8 F 64 18 99/53 L 96 12/06/17 22:12 12/06/17 22:12 12/06/17 22:12 12/06/17 22:12 12/06/17 22:12 Intake and Output: 12/06/17 12/07/17 18:59 06:59 Intake Total 540 Output Total 400 Balance 140 - Medications Medications: Current Medications Furosemide (Lasix) 20 mg IVP Q12 [facility] Last Admin: 12/06/17 21:20 Dose: 20 mg Insulin Human Regular (Humulin R Med) 0 units SC ACHS [facility] PRN Reason: Protocol Last Admin: 12/06/17 16:43 Dose: Not Given Levothyroxine Sodium (Synthroid) 75 mcg PO 0600 [facility] Last Admin: 12/06/17 06:02 Dose: 75 mcg Pantoprazole Sodium (Protonix Ec Tab) 40 mg PO DAILY [facility] Last Admin: 12/06/17 10:01 Dose: 40 mg Sildenafil Citrate (Revatio) 20 mg PO BID [facility] Last Admin: 12/06/17 18:17 Dose: 20 mg Sodium Bicarbonate (Sodium Bicarbonate Tab) 1,300 mg PO TID [facility] Last Admin: 12/06/17 17:31 Dose: 1,300 mg - Labs Labs: 12/06/17 09:00 12/06/17 09:00 PT 14.6 SECONDS (9.4-12.5) H 11/30/17 19:30 INR 1.27 (0.93-1.08) H 11/30/17 19:30 APTT 31.1 Seconds (25.1-36.5) 11/30/17 19:30 - Constitutional Appears: Non-toxic, No Acute Distress - Eye Exam Eye Exam: absent: Scleral icterus - ENT Exam ENT Exam: Mucous Membranes Moist - Respiratory Exam Respiratory Exam: Clear to Ausculation Bilateral. absent: Respiratory Distress - Cardiovascular Exam Cardiovascular Exam: RRR, +S1, +S2 - GI/Abdominal Exam GI & Abdominal Exam: Distended, Soft. absent: Tenderness - Extremities Exam Additional comments: moderate leg edema; - Neurological Exam Neurological Exam: Alert, Awake - Psychiatric Exam Psychiatric exam: Agitated - Skin Skin Exam: Warm. absent: Cyanosis Assessment and Plan (1) RAYMOND (acute kidney injury) Assessment & Plan: No improvement with volume challenge using IV albumin; portends poor prognosis in the setting of severe pulmonary htn; started on diuresis with IV lasix 20 mg q12h; started PO sodium bicarb 1300 mg tid for metabolic acidosis; If renal function worsens further, may need to consider dialysis; will discuss with family; Status: Acute (2) CKD (chronic kidney disease), stage IV Status: Chronic (3) CHF (congestive heart failure) Assessment & Plan: With severe pulm htn; on sildenafil per pulm; diuresis as above; Status: Acute (4) Chronic kidney disease-mineral and bone disorder Status: Chronic (5) Hyperkalemia Status: Resolved (6) Anemia Assessment & Plan: Mild drop in hgb, f/u with heme; Status: Acute (7) Azotemia Status: Acute
[2017-12-07] MEDS ORDERED: DiphenhydrAMINE 50 mg/ml Inj IVP STA (00:43)
--- NOTE | 2017-12-07 00:44 | CP.PCM.PN ---
Subjective - Date & Time of Evaluation Date of Evaluation: 12/07/17 Time of Evaluation: 00:42 - Subjective Subjective: Patient was seen at bedside because nurse calls and tells that patient is confused, trying to get out of bed , can not sleep. Patient denies chest pain , sob. Has no complaints. Medical record was reviewed. This 77 year old white male was admitted for epistaxis, gingival bleeding, hemoptysis. Has PMH of CHF, CKD stage IV, anemia, pulmonary hypertension, myelodysplastic syndrome, BHP , GERD , hypothyroidism, ascites, atrial fibrillation, abdominal paracentesis port. Objective - Vital Signs/Intake and Output Vital Signs (last 24 hours): Temp Pulse Resp BP Pulse Ox 98.8 F 64 18 99/53 L 96 12/06/17 22:12 12/06/17 22:12 12/06/17 22:12 12/06/17 22:12 12/06/17 22:12 Intake and Output: 12/06/17 12/07/17 18:59 06:59 Intake Total 540 Output Total 400 Balance 140 - Medications Medications: Current Medications Furosemide (Lasix) 20 mg IVP Q12 [facility] Last Admin: 12/06/17 21:20 Dose: 20 mg Insulin Human Regular (Humulin R Med) 0 units SC ACHS [facility] PRN Reason: Protocol Last Admin: 12/06/17 16:43 Dose: Not Given Levothyroxine Sodium (Synthroid) 75 mcg PO 0600 [facility] Last Admin: 12/06/17 06:02 Dose: 75 mcg Pantoprazole Sodium (Protonix Ec Tab) 40 mg PO DAILY [facility] Last Admin: 12/06/17 10:01 Dose: 40 mg Sildenafil Citrate (Revatio) 20 mg PO BID [facility] Last Admin: 12/06/17 18:17 Dose: 20 mg Sodium Bicarbonate (Sodium Bicarbonate Tab) 1,300 mg PO TID [facility] Last Admin: 12/06/17 17:31 Dose: 1,300 mg - Labs Labs: 12/06/17 09:00 12/06/17 09:00 PT 14.6 SECONDS (9.4-12.5) H 11/30/17 19:30 INR 1.27 (0.93-1.08) H 11/30/17 19:30 APTT 31.1 Seconds (25.1-36.5) 11/30/17 19:30 Micro Results 11/30/17 19:45 Blood-Venous Blood Culture - Final NO GROWTH AFTER 5 DAYS 02 19:45 Blood-Venous Gram Stain - Final TEST NOT PERFORMED 11/30/17 19:49 Blood-Venous Blood Culture - Final NO GROWTH AFTER 5 DAYS 02 19:49 Blood-Venous Gram Stain - Final TEST NOT PERFORMED 12/01/17 03:48 Urine Urine Culture - Final No Growth (<1,000 CFU/ML) Most Recent Lab Values WBC 11.9 10^3/ul (4.5-11.0) H 12/06/17 09:00 RBC 2.91 10^6/uL (3.5-6.1) L 12/06/17 09:00 Hgb 8.0 g/dL (14.0-18.0) L 12/06/17 09:00 Hct 24.1 % (42.0-52.0) L 12/06/17 09:00 MCV 82.8 fl (80.0-105.0) 12/06/17 09:00 MCH 27.5 pg (25.0-35.0) 12/06/17 09:00 MCHC 33.2 g/dl (31.0-37.0) 12/06/17 09:00 RDW 17.2 % (11.5-14.5) H 12/06/17 09:00 Plt Count 124 10^3/uL (120.0-450.0) 12/06/17 09:00 MPV 9.5 fl (7.0-11.0) 12/06/17 09:00 Gran % 71.7 % (50.0-68.0) H 12/06/17 09:00 Lymph % (Auto) 5.8 % (22.0-35.0) L 12/06/17 09:00 [place] % (Auto) 17.3 % (1.0-6.0) H 12/06/17 09:00 Eos % (Auto) 1.4 % (1.5-5.0) L 12/06/17 09:00 Baso % (Auto) 3.8 % (0.0-3.0) H 12/06/17 09:00 Gran # 8.53 (1.4-6.5) H 12/06/17 09:00 Lymph # (Auto) 0.7 (1.2-3.4) L 12/06/17 09:00 [place] # (Auto) 2.1 (0.1-0.6) H 12/06/17 09:00 Eos # (Auto) 0.2 (0.0-0.7) 12/06/17 09:00 Baso # (Auto) 0.45 K/mm3 (0.0-2.0) 12/06/17 09:00 Neutrophils % (Manual) 69 % (50.0-70.0) 12/06/17 09:00 Band Neutrophils % 10 % (0-2) H 12/06/17 09:00 Lymphocytes % (Manual) 5 % (22.0-35.0) L 12/06/17 09:00 Atypical Lymphs % 3 % (0.0-0.0) H 11/30/17 19:30 Monocytes % (Manual) 3 % (1.0-6.0) 12/06/17 09:00 Eosinophils % (Manual) 2 % (0.0-3.0) 12/06/17 09:00 Basophils % (Manual) 1 % (0.0-1.0) 12/06/17 09:00 Metamyelocytes % 5 % 12/06/17 09:00 Myelocytes % 5 % 12/06/17 09:00 Nucleated RBC % 1 % 12/03/17 05:45 Toxic Granulation 1+ 11/30/17 19:30 Platelet Evaluation Normal (NORMAL) 12/06/17 09:00 Polychromasia Slight 12/02/17 06:30 Hypochromasia 1+ 11/30/17 19:30 Poikilocytosis (manual Slight 12/03/17 05:45 Anisocytosis (manual) Slight 12/03/17 05:45 Microcytosis (manual) 1+ 11/30/17 19:30 PT 14.6 SECONDS (9.4-12.5) H 11/30/17 19:30 INR 1.27 (0.93-1.08) H 11/30/17 19:30 APTT 31.1 Seconds (25.1-36.5) 11/30/17 19:30 pO2 54 mm/Hg (30-55) 11/30/17 21:59 VBG pH 7.29 (7.32-7.43) L 11/30/17 21:59 VBG pCO2 36.0 (40-60) L 11/30/17 21:59 VBG HCO3 17.3 mmol/l (21-28) L 11/30/17 21:59 VBG Total CO2 18.4 mmol.L (22-28) L 11/30/17 21:59 VBG O2 Sat (Calc) 92.2 % (40-65) H 11/30/17 21:59 VBG Base Excess -8.5 mmol/L (0.0-2.0) L 11/30/17 21:59 VBG Potassium 5.9 mmol/L (3.6-5.2) H 11/30/17 21:59 Sodium 134.0 mmol/L (132-148) 11/30/17 21:59 Chloride 107.0 mmol/L (98-107) 11/30/17 21:59 Glucose 263 mg/dl (75-110) H 11/30/17 21:59 Lactate 0.7 mmol/L (0.7-2.1) 11/30/17 21:59 FiO2 21.0 % 11/30/17 21:59 Sodium 133 mmol/L (132-148) 12/06/17 09:00 Potassium 4.6 mmol/L (3.6-5.0) 12/06/17 09:00 Chloride 101 mmol/L (98-107) 12/06/17 09:00 Carbon Dioxide 17 mmol/L (21-33) L 12/06/17 09:00 Anion Gap 19 (10-20) 12/06/17 09:00 BUN 139 mg/dL (7-21) H* 12/06/17 09:00 Creatinine 2.8 mg/dl (0.8-1.5) H 12/06/17 09:00 Est GFR ( Amer) 27 12/06/17 09:00 Est GFR (Non-Af Amer) 22 12/06/17 09:00 POC Glucose (mg/dL) 190 mg/dL (65-110) H 12/06/17 21:16 Random Glucose 134 mg/dL (70-110) H 12/06/17 09:00 Uric Acid 14.9 mg/dL (3.5-8.5) H 12/02/17 06:30 Calcium 8.3 mg/dL (8.4-10.5) L 12/06/17 09:00 Phosphorus 5.6 mg/dL (2.5-4.5) H 12/02/17 06:30 Magnesium 2.3 mg/dL (1.7-2.2) H 12/01/17 11:44 Iron 39 ug/dL (45-180) L 12/04/17 06:30 TIBC 199 ug/dL (261-462) L 12/04/17 06:30 % Saturation 20 % (20-55) 12/04/17 06:30 Ferritin 1500.0 ng/mL 12/04/17 06:30 Total Bilirubin 1.1 mg/dL (0.2-1.3) 12/06/17 09:00 AST 37 U/L (17-59) 12/06/17 09:00 ALT 41 U/L (7-56) 12/06/17 09:00 Alkaline Phosphatase 200 U/L (38-126) H 12/06/17 09:00 Ammonia < 9 umol/L (9-33) L 11/30/17 19:30 Lactate Dehydrogenase 2006 U/L (333-699) H 11/30/17 19:30 Total Creatine Kinase 99 U/L (35-230) 11/30/17 19:30 Troponin I 0.03 ng/mL D 11/30/17 19:30 NT-Pro-B Natriuret Pep 31199 pg/mL (0-450) H 11/30/17 19:30 Total Protein 5.6 g/dL (5.8-8.3) L 12/06/17 09:00 Albumin 2.8 g/dL (3.0-4.8) L 12/06/17 09:00 Globulin 2.8 gm/dL 12/06/17 09:00 Albumin/Globulin Ratio 1.0 (1.1-1.8) L 12/06/17 09:00 25-OH Vitamin D Total 35.6 NG/ML (30.0-100.0) 12/02/17 06:30 PTH Intact Whole Molec 70 pg/mL (14-64) H 12/02/17 06:30 Venous Blood Potassium 5.9 mmol/L (3.6-5.2) H 11/30/17 21:59 Urine Color Yellow (YELLOW) 12/03/17 18: Urine Appearance Clear (CLEAR) 12/03/17 18: Urine pH 6.0 (4.7-8.0) 12/03/17 18: Ur Specific [place] 1.015 (1.005-1.035) 12/03/17 18: Urine Protein Trace mg/dL (<30 mg/dL) H 12/03/17 18: Urine Glucose (UA) Negative mg/dL (NEGATIVE) 12/03/17 18: Urine Ketones Negative mg/dL (NEGATIVE) 12/03/17 18: Urine Blood Trace-intact (NEGATIVE) H 12/03/17 18: Urine Nitrate Negative (NEGATIVE) 12/03/17 18: Urine Bilirubin Negative (NEGATIVE) 12/03/17 18: Urine Urobilinogen 0.2 E.U./dL (<1 E.U./dL) 12/03/17 18: Ur Leukocyte Esterase Trace [place]/uL (NEGATIVE) H 12/03/17 18: Urine RBC 0 - 2 /hpf (0-2) 12/03/17 18: Urine WBC 1 - 3 /hpf (0-6) 12/03/17 18: Ur Epithelial Cells 0 - 2 /hpf (0-5) 12/03/17 18:19 Urine Bacteria Few (NEG) 12/03/17 18: Urine Collection Time 24 HOURS 12/02/17 19:43 Urine Total Volume 1600 mL (800-1400) H 12/02/17 19:43 Creatinine Clearance 26.0 ml/min (80-120) L 12/02/17 19:43 Ur Protein 24 Hr Calc 288 mg/24HR (42-225) H 12/02/17 19:43 Fluid Source Peritoneal/ascites 12/06/17 11:30 Fluid Appearance Clear (CLEAR) 12/06/17 11:30 Fluid WBC 92.4 /uL (0.0-300.0) 12/06/17 11:30 Fluid RBC 79.8 /uL (0.0-0.0) H 12/06/17 11:30 Fluid Tot Cell Count 100 (0-0) H 12/06/17 11:30 Fluid Neutrophils 9.0 % (0-0) H 12/06/17 11:30 Fluid Lymphocytes 90.0 % (0-0) H 12/06/17 11:30 Fld Monocyte/Macrophag 1 % (0-0) H 12/06/17 11:30 Fluid Comment Yelow 12/06/17 11:30 Stool Occult Blood Negative (NEGATIVE) 12/03/17 14:42 Blood Type O NEGATIVE 11/30/17 21:43 Antibody Screen Negative 11/30/17 21:43 Crossmatch See Detail 11/30/17 21:43 BBK History Checked Patient has bt 11/30/17 21:43 - Constitutional Appears: Well, No Acute Distress - Head Exam Head Exam: ATRAUMATIC, NORMAL INSPECTION, NORMOCEPHALIC - Eye Exam Eye Exam: Normal appearance - ENT Exam ENT Exam: Normal External Ear Exam - Neck Exam Neck Exam: Normal Inspection - Respiratory Exam Respiratory Exam: NORMAL BREATHING PATTERN - Cardiovascular Exam Cardiovascular Exam: absent: JVD - GI/Abdominal Exam GI & Abdominal Exam: absent: Distended - Rectal Exam Rectal Exam: Deferred - Exam Additional comments: Deferred. - Extremities Exam Extremities Exam: Normal Inspection - Back Exam Back Exam: NORMAL INSPECTION - Neurological Exam Neurological Exam: Alert, Awake, Oriented x3 - Psychiatric Exam Psychiatric exam: Normal Affect, Normal Mood - Skin Skin Exam: Normal Color Assessment and Plan - Assessment and Plan (Free Text) Assessment: Agitatoin. Confusion. Insomnia. CHF. Pulmonary hypertension. HTN. Myelodysplastic syndrome. Anemia. Plan: Benadryl 25 mg IV x 1. Continue present management as per PMD.
[2017-12-07] MEDS: Levothyroxine 75 MCG TAB PO SCH (06:43)
[2017-12-07 07:37] LABS: BASO # 0.58 K/mm3 (0.0-2.0); EOS # 0.2 (0.0-0.7); EOS % 1.3 % (1.5-5.0); HEMOGLOBIN 8.2 g/dL (14.0-18.0); MEAN CELL VOLUME 82.2 fl (80.0-105.0); MEAN CORPUSCULAR HEMOGLOBIN 27.1 pg (25.0-35.0); MEAN CORPUSCULAR HGB CONC 32.9 g/dl (31.0-37.0); MEAN PLATELET VOLUME 9.2 fl (7.0-11.0); MONO % 13.6 % (1.0-6.0); PLATELET COUNT 120 10^3/uL (120.0-450.0); RBC 3.03 10^6/uL (3.5-6.1); RED CELL DISTRIBUTION WIDTH 17.2 % (11.5-14.5); WHITE BLOOD COUNT 14.6 10^3/ul (4.5-11.0)
[2017-12-07 08:24] LABS: ALB/GLOB RATIO 0.9 (1.1-1.8); ALBUMIN 2.6 g/dL (3.0-4.8); CALCIUM 7.8 mg/dL (8.4-10.5)
[2017-12-07] MEDS: Insulin Reg-MEDIUM-Coverage SC SCH ×4 (08:45→23:00)
--- NOTE | 2017-12-07 09:37 | PN ---
SUBJECTIVE: The patient was seen and examined at the bedside on the remote telemetry dempsey. No acute events overnight. He remains largely clinically unchanged. The patient does not appear to be responding to medical therapy and as such arrangements will be made for evaluation with Lori Pfeiffer of Palliative Care. I had a long discussion with the patient's sister (Ceci Low) and she is agreeable with Palliative Care and states that she does not want her brother to suffer. OBJECTIVE VITAL SIGNS: Temperature 97.6, pulse 67, blood pressure 102/48, respiratory rate 20, oxygen saturation 98% on room air. GENERAL: No apparent distress. HEENT: PERRL. EOMI. No scleral icterus. Conjunctival pallor is noted. NECK: No JVD. LUNGS: Decreased breath sounds at the bases with a few scattered rhonchi. CARDIOVASCULAR: Regular rate and rhythm. Normal S1 and S2. Grade II/ systolic murmur to the left upper sternal border. ABDOMEN: Normoactive bowel sounds. Soft, nontender, mildly distended, no rigidity, no tympany. Paracentesis access appears clean, dry, and intact. EXTREMITIES: Trace to 1+ bilateral lower extremity edema. NEUROLOGIC: Awake, alert, and oriented x3. No focal motor deficits. LABORATORY DATA: Morning labs are pending. ASSESSMENT: The patient is a 77 year old man with multiple medical comorbidities including chronic diastolic heart failure with severe pulmonary hypertension, history of recurrent ascites secondary to underlying right heart failure, CKD stage IV, anemia of chronic disease, MDS, AFib and hypothyroidism who was sent from [facility] for evaluation of 2 episodes of epistaxis/oropharyngeal bleed and was admitted for management of hyperkalemia, RAYMOND on CKD and acute-on- chronic diastolic heart failure exacerbation. PLAN 1. Epistaxis/oropharyngeal bleed, resolved. There have been no further witnessed bleeding episodes since admission and the patient has been transfused a total of 4 units of PRBCs during this hospital stay. Stool occult blood is negative. We will continue to monitor CBC daily. 2. CKD stage IV. Input from Dr. Joe noted and appreciated. The patient is s/p infusion of albumin with no improvement in volume status. The patient is a poor dialysis candidate given his underlying cognitive impairment and furthermore the patient's sister does not want to initiate dialysis in her brother. 3. MDS. Input from Dr. Constantino noted and appreciated and continue with care as per Dr. Constantino. 4. Anemia of chronic disease secondary to the patient's underlying MDS. The patient has a baseline Hb of 7-8. 5. [id number] diastolic heart failure exacerbation. Input from Dr. Johns noted and appreciated. The patient has been restarted on intravenous Lasix. 6. Severe pulmonary hypertension. Input from Dr. Sandoval appreciated and the patient remains on Sildenafil 20 mg p.o. b.i.d. 7. Hypothyroidism. Continue Synthroid 75 mcg p.o. daily. 8. Hypertension. The patient remains off antihypertensives and with a borderline low blood pressure. 9. BPH. 10. GERD. Continue Protonix 40 mg p.o. daily. 11. History of recurrent ascites secondary to underlying right heart failure/ severe pulmonary hypertension. The patient has an abdominal paracentesis port, which was recently aspirated with 10 mL of fluid drained. The patient is also s /p albumin infusion. 12. Prophylaxis. Continue Protonix for GI and SCDs for DVT prophylaxis. CODE STATUS: Full code. Jan Louis MD MTDD
--- NOTE | 2017-12-07 10:30 | PN ---
DATE: 12/07/2017 PULMONARY NOTE SUBJECTIVE: The patient appears very comfortable at rest. He is not short of breath. PHYSICAL EXAMINATION VITAL SIGNS: Temperature is 97.6, pulse is 67, respirations 18, blood pressure 92/48. Oxygen saturation on room air is 98%. HEENT: Normocephalic, atraumatic. No JVD. CARDIOVASCULAR: Systolic ejection murmur at the lower left sternal border. Questionable S3 gallop. LUNGS: Decreased breath sounds at the bases. No rhonchi. No wheezing. EXTREMITIES: No clubbing, cyanosis or edema. Calves are nontender to palpation. GI: Abdomen is soft, nontender and nondistended. Bowel sounds are positive. SKIN: No acute rash. NEUROLOGIC: Limited at the present time. IMPRESSION: 1. Epistaxis - resolved. 2. Chronic anemia. 3. Acute on chronic kidney disease. 4. Congestive heart failure. 5. Pulmonary hypertension. 6. Myelodysplastic syndrome. PLAN: The patient appears very comfortable this morning. He is not short of breath at rest. He does state to feeling much better overall. On physical exam, there is no bronchospasm noted. In addition, the oxygen saturation on room air remains at 98%. I will continue the current aspiration precautions for now. I will also continue the patient on his Revatio - for his severe pulmonary hypertension. Inputs by Renal are noted. The clinical status of the patient is certainly improved - compared to the initial presentation. However, again, the future status/prognosis for this patient remains very guarded. I will discuss the above the attending physician. Carlos Sandoval MD MTDD
[2017-12-07 10:39] LABS: BAND 4 % (0-2); LYMPHOCYTE 14 % (22.0-35.0); METAMYELOCYTE 4 %; MONOCYTE 12 % (1.0-6.0); MYELOCYTE 2 %; NEUTROPHIL 64 % (50.0-70.0)
[2017-12-07 10:40] LABS: ANISOCYTOSIS SLIGHT; BURR CELLS SLIGHT
[2017-12-07 10:41] LABS: POIKILOCYTOSIS SLIGHT
[2017-12-07] MEDS: Albumin Human 5% (12.5 gm/250 ml) IV SCH ×2 (11:33→18:28)
[2017-12-07] MEDS: Sildenafil 20 MG TAB PO SCH ×2 (11:34→18:13)
[2017-12-07] MEDS: Pantoprazole 40 mg EC Tab PO SCH (11:34)
--- NOTE | 2017-12-07 12:23 | CP.PCM.CON ---
History of Present Illness - History of Present Illness History of Present Illness: Palliative consult requested by Dr Tristen Eller Reason: Goals of care/hospice discussion 77 year old mentally challenged male with hisoty of MDS,CKD, diastolic heart failure, pulmonary hypertension who presented with espistaxis. PMHx: CKD stage IV, MDS, right sided heat failure, pulmonary hypertension, ascites, atrial fibrillation, hypothyroidism, BPH. Family History: Significant for HTN and malignancy in both parents. Social History: Former 30 pack year smoker, former daily alcohol use, no illicit drug use. Advance Care Planning: The has an Advanced Directive. His POA, is sister Ceci Clark. Review of Systems: As per HPI, otherwise negative review Past Patient History - Infectious Disease Hx of Infectious Diseases: None - Past Social History Smoking Status: Former Smoker - CARDIAC Hx Cardiac Disorders: Yes (Pulmonary hypertension) Hx Congestive Heart Failure: Yes - PULMONARY Hx Respiratory Disorders: No - NEUROLOGICAL Hx Paralysis: No - RENAL Hx Chronic Kidney Disease: Yes - HEMATOLOGICAL/ONCOLOGICAL Hx Blood Disorders: Yes (Myelodysplastic syndrome) Hx Anemia: Yes - INTEGUMENTARY Hx Dermatological Problems: Yes - MUSCULOSKELETAL/RHEUMATOLOGICAL Hx Falls: No Hx Unsteady Gait: Yes - GASTROINTESTINAL Hx Gastrointestinal Disorders: Yes (Left inguinal hernia, acites) Hx Diverticulitis: Yes - PSYCHIATRIC Hx Emotional Abuse: No Hx Physical Abuse: No Hx Substance Use: No - SURGICAL HISTORY Hx Surgeries: Yes (Tunnel peritoneal catheter insertion for frequent paracentesis) - ANESTHESIA Hx Anesthesia: Yes Hx Anesthesia Reactions: No Hx Malignant Hyperthermia: No Meds Allergies/Adverse Reactions: Allergies Allergy/AdvReac Type Severity Reaction Status Date / Time No Known Allergies Allergy Verified 04/26/17 06:34 - Medications Medications: Current Medications Albumin Human (Albumin Human 5% (12.5 Gm/250 Ml)) 12.5 gm IV Q6H [facility] Stop: 12/07/17 17:01 Last Admin: 12/07/17 11:33 Dose: 12.5 gm Furosemide (Lasix) 20 mg IVP Q12 [facility] Last Admin: 12/07/17 11:39 Dose: Not Given Insulin Human Regular (Humulin R Med) 0 units SC ACHS [facility] PRN Reason: Protocol Last Admin: 12/07/17 08:45 Dose: 1 units Levothyroxine Sodium (Synthroid) 75 mcg PO 0600 [facility] Last Admin: 12/07/17 06:43 Dose: 75 mcg Pantoprazole Sodium (Protonix Ec Tab) 40 mg PO DAILY [facility] Last Admin: 12/07/17 11:34 Dose: 40 mg Sildenafil Citrate (Revatio) 20 mg PO BID [facility] Last Admin: 12/07/17 11:34 Dose: 20 mg Sodium Bicarbonate (Sodium Bicarbonate Tab) 1,300 mg PO TID [facility] Last Admin: 12/07/17 11:33 Dose: 1,300 mg Physical Exam - Constitutional Appears: Chronically Ill - Head Exam Head Exam: NORMAL INSPECTION - Eye Exam Eye Exam: Normal appearance, PERRL - ENT Exam ENT Exam: Mucous Membranes Moist, Normal Oropharynx - Neck Exam Neck exam: Positive for: Normal Inspection - Respiratory Exam Respiratory Exam: Decreased Breath Sounds, Clear to Auscultation Bilateral - Cardiovascular Exam Cardiovascular Exam: Diastolic murmur, Irregular Rhythm, +S1, +S2 - GI/Abdominal Exam GI & Abdominal Exam: Distended, Normal Bowel Sounds, Soft - Extremities Exam Additional comments: 2+ bilateral lower extremity edema - Neurological Exam Neurological exam: Alert, Altered - Skin Skin Exam: Dry, Pallor - Additional Findings Additional findings: palliative performance scale rating 40 % Results - Vital Signs Recent Vital Signs: Last Vital Signs Temp 97.6 F 12/07/17 06:00 Pulse 67 12/07/17 06:00 Resp 20 12/07/17 06:00 BP 92/48 L 12/07/17 00:01 Pulse Ox 98 12/07/17 06:00 - Labs Result Diagrams: 12/07/17 07:00 12/07/17 07:00 Labs: Laboratory Results - last 24 hr 12/06/17 12/06/17 12/06/17 09:00 11:30 16:00 WBC RBC Hgb Hct MCV MCH MCHC RDW Plt Count MPV Nance % (Auto) Eos % (Auto) Baso % (Auto) Nance # (Auto) Eos # (Auto) Baso # (Auto) Neutrophils % (Manual) 69 Band Neutrophils % 10 H Lymphocytes % (Manual) 5 L Monocytes % (Manual) 3 Eosinophils % (Manual) 2 Basophils % (Manual) 1 Metamyelocytes % 5 Myelocytes % 5 Platelet Evaluation Normal Poikilocytosis (manual Anisocytosis (manual) [place] Cells Sodium Potassium Chloride Carbon Dioxide Anion Gap BUN Creatinine Est GFR ( Amer) Est GFR (Non-Af Amer) POC Glucose (mg/dL) 153 H Random Glucose Calcium Total Bilirubin AST ALT Alkaline Phosphatase Total Protein Albumin Globulin Albumin/Globulin Ratio Fluid Appearance Clear Fluid WBC 92.4 Fluid RBC 79.8 H Fluid Tot Cell Count 100 H Fluid Neutrophils 9.0 H Fluid Lymphocytes 90.0 H Fld Monocyte/Macrophag 1 H Fluid Comment Y[place]ow 12/06/17 12/07/17 12/07/17 21:16 07:00 07:00 WBC 14.6 H D RBC 3.03 L Hgb 8.2 L Hct 24.9 L MCV 82.2 MCH 27.1 MCHC 32.9 RDW 17.2 H Plt Count 120 MPV 9.2 Nance % (Auto) 13.6 H Eos % (Auto) 1.3 L Baso % (Auto) 4.0 H Nance # (Auto) 2.0 H Eos # (Auto) 0.2 Baso # (Auto) 0.58 Neutrophils % (Manual) 64 Band Neutrophils % 4 H Lymphocytes % (Manual) 14 L Monocytes % (Manual) 12 H Eosinophils % (Manual) Basophils % (Manual) Metamyelocytes % 4 Myelocytes % 2 Platelet Evaluation Poikilocytosis (manual Slight Anisocytosis (manual) Slight [place] Cells Slight Sodium 133 Potassium 4.5 Chloride 101 Carbon Dioxide 17 L Anion Gap 19 BUN 146 H* Creatinine 2.9 H Est GFR ( Amer) 26 Est GFR (Non-Af Amer) 21 POC Glucose (mg/dL) 190 H Random Glucose 160 H Calcium 7.8 L Total Bilirubin 0.7 AST 40 ALT 44 Alkaline Phosphatase 191 H Total Protein 5.6 L Albumin 2.6 L Globulin 3.0 Albumin/Globulin Ratio 0.9 L Fluid Appearance Fluid WBC Fluid RBC Fluid Tot Cell Count Fluid Neutrophils Fluid Lymphocytes Fld Monocyte/Macrophag Fluid Comment 12/07/17 07:29 WBC RBC Hgb Hct MCV MCH MCHC RDW Plt Count MPV [place] % (Auto) Eos % (Auto) Baso % (Auto) Nance # (Auto) Eos # (Auto) Baso # (Auto) Neutrophils % (Manual) Band Neutrophils % Lymphocytes % (Manual) Monocytes % (Manual) Eosinophils % (Manual) Basophils % (Manual) Metamyelocytes % Myelocytes % Platelet Evaluation Poikilocytosis (manual Anisocytosis (manual) [place] Cells Sodium Potassium Chloride Carbon Dioxide Anion Gap BUN Creatinine Est GFR ( Amer) Est GFR (Non-Af Amer) POC Glucose (mg/dL) 159 H Random Glucose Calcium Total Bilirubin AST ALT Alkaline Phosphatase Total Protein Albumin Globulin Albumin/Globulin Ratio Fluid Appearance Fluid WBC Fluid RBC Fluid Tot Cell Count Fluid Neutrophils Fluid Lymphocytes Fld Monocyte/Macrophag Fluid Comment Assessment & Plan - Assessment and Plan (Free Text) Assessment: 77 year male with history of CKD, pulmonary hypertension, right sided heart failure and MDS admitted with thrombocytopenia, anemia, espistaxis and acute on chronic kidney failure. Patients sister/POA Radha Clark at bedside She i has spoke with Dr Tristen eller an is aware of her brothers medical situation and poor prognosis. The patient has a an Adduced Directive in which he states that he does not want CPR/ intubation or artificial means to prolong life. Radha requesting he be DNR/ DNI. She does not want dialysis or artificial feeding as in accordance with patients directive. POLST form completed a copy is placed in chart. Radha requesting that he brother be evaluated for hospice services in a facility such as NH or hospice free standing. Hospice services discussed at length. Questions answered.Psychosocial support provided. Referred to [facility] for discharge plan to NH/free standing hospice services. Time spent with sister in goals of care and hospice planning, 30 minutes Plan: POLST DNR/DNI Hospice evaluation for placement in NH or free standing hospice facility Palliative support in establishing goals of care
[2017-12-07 12:54] VITALS: RESP 18
--- NOTE | 2017-12-07 16:23 | CP.PCM.PN ---
Subjective - Date & Time of Evaluation Date of Evaluation: 12/07/17 Time of Evaluation: 16:17 - Subjective Subjective: Podiatry Progress Note - Dr. Whitney 77 year old male patient PMHx CHF seen and evaluated at bedside for bilateral foot wounds. Patient seen resting comfortably, NAD. Patient denies any acute events overnight. Multipodus boots present to bilateral LE. Reports pain to left foot, apprehensive to have dressing changed. No other pedal complaints. Denies N/V/F/D/C/SOB/calf pain. Objective - Vital Signs/Intake and Output Vital Signs (last 24 hours): Temp Pulse Resp BP Pulse Ox 98 F 62 18 92/51 L 98 12/07/17 12:00 12/07/17 12:00 12/07/17 12:00 12/07/17 12:00 12/07/17 06:00 Intake and Output: 12/07/17 12/07/17 06:59 18:59 Intake Total 120 Output Total 501 Balance -381 - Medications Medications: Current Medications Albumin Human (Albumin Human 5% (12.5 Gm/250 Ml)) 12.5 gm IV Q6H [facility] Stop: 12/07/17 17:01 Last Admin: 12/07/17 11:33 Dose: 12.5 gm Furosemide (Lasix) 20 mg IVP Q12 [facility] Last Admin: 12/07/17 11:39 Dose: Not Given Insulin Human Regular (Humulin R Med) 0 units SC ACHS [facility] PRN Reason: Protocol Last Admin: 12/07/17 12:39 Dose: 3 units Levothyroxine Sodium (Synthroid) 75 mcg PO 0600 [facility] Last Admin: 12/07/17 06:43 Dose: 75 mcg Pantoprazole Sodium (Protonix Ec Tab) 40 mg PO DAILY [facility] Last Admin: 12/07/17 11:34 Dose: 40 mg Sildenafil Citrate (Revatio) 20 mg PO BID [facility] Last Admin: 12/07/17 11:34 Dose: 20 mg Sodium Bicarbonate (Sodium Bicarbonate Tab) 1,300 mg PO TID [facility] Last Admin: 12/07/17 13:51 Dose: 1,300 mg - Labs Labs: 12/07/17 07:00 12/07/17 07:00 PT 14.6 SECONDS (9.4-12.5) H 11/30/17 19:30 INR 1.27 (0.93-1.08) H 11/30/17 19:30 APTT 31.1 Seconds (25.1-36.5) 11/30/17 19:30 - Constitutional Appears: Well, Non-toxic, No Acute Distress - Extremities Exam Additional comments: Patient resting in bed with externally rotated bilateral lower extremities and knees flexed 90 degrees; appears to be semi-rigid as patient withdraws to this position. Multipodus boots present to bilateral LE. VASC: DP/PT pulses are palpable 2/4 b/l, Cap refill time: < 3 sec to all digits , Temp gradient: warm to warm from proximal to distal, +1 pitting edema noted to bilateral lower extremities. DERM: RLE - Unstageable deep tissue injuries noted to right heel, base of 5th metatarsal, head of 5th metatarsal; all noted to have intact roof. LLE - Necrosis noted to posterior heel with bogginess on palpation and improving demarcation, periwound erythema noted. Fluid-filled bullae x2 noted to plantarmedial arch with intact roof. NEURO: Unable to assess ORTHO: Bogginess to palpation left heel. Pain on palpation to deep tissue injuries and eschar b/l, L>R. - Neurological Exam Neurological Exam: Alert, Awake, Oriented x3 - Psychiatric Exam Psychiatric exam: Normal Affect, Normal Mood Assessment and Plan - Assessment and Plan (Free Text) Assessment: 77 year old male patient with PMHx of CHF with multiple deep tissue injuries to feet b/l and necrotic eschar left heel. Plan: Patient seen and evaluated with attending, Dr. Whitney Afebrile, WBC increasing 14.6 Left heel demarcating and is boggy on palpation - will continue to monitor Continue local wound care - optifoam to wounds b/l, hydrocolloid to left heel Continue multipodus boots at all times while in bed Podiatry will continue to follow patient while in house
--- NOTE | 2017-12-07 22:02 | CP.PCM.PN ---
Subjective - Date & Time of Evaluation Date of Evaluation: 12/07/17 Time of Evaluation: 11:00 - Subjective Subjective: Patient complaining of non-specific pain; otherwise has been tolerating diet; Objective - Vital Signs/Intake and Output Vital Signs (last 24 hours): Temp Pulse Resp BP Pulse Ox 97 F L 80 18 95/50 L 94 L 12/07/17 18:00 12/07/17 18:00 12/07/17 18:00 12/07/17 18:00 12/07/17 18:00 Intake and Output: 12/07/17 12/08/17 18:59 06:59 Intake Total 840 Output Total 1001 Balance -161 - Medications Medications: Current Medications Albumin Human (Albumin Human 5% (12.5 Gm/250 Ml)) 12.5 gm IV Q6H [facility] Stop: 12/08/17 06:00 Furosemide (Lasix) 20 mg IVP Q12 [facility] Last Admin: 12/07/17 11:39 Dose: Not Given Insulin Human Regular (Humulin R Med) 0 units SC ACHS [facility] PRN Reason: Protocol Last Admin: 12/07/17 16:40 Dose: Not Given Levothyroxine Sodium (Synthroid) 75 mcg PO 0600 [facility] Last Admin: 12/07/17 06:43 Dose: 75 mcg Pantoprazole Sodium (Protonix Ec Tab) 40 mg PO DAILY [facility] Last Admin: 12/07/17 11:34 Dose: 40 mg Sildenafil Citrate (Revatio) 20 mg PO BID [facility] Last Admin: 12/07/17 18:13 Dose: 20 mg Sodium Bicarbonate (Sodium Bicarbonate Tab) 1,300 mg PO TID [facility] Last Admin: 12/07/17 18:10 Dose: 1,300 mg - Labs Labs: 12/07/17 07:00 12/07/17 07:00 PT 14.6 SECONDS (9.4-12.5) H 11/30/17 19:30 INR 1.27 (0.93-1.08) H 11/30/17 19:30 APTT 31.1 Seconds (25.1-36.5) 11/30/17 19:30 - Constitutional Appears: Non-toxic, No Acute Distress - Eye Exam Eye Exam: absent: Scleral icterus - ENT Exam ENT Exam: Mucous Membranes Moist - Respiratory Exam Respiratory Exam: Clear to Ausculation Bilateral. absent: Respiratory Distress - Cardiovascular Exam Cardiovascular Exam: RRR, +S1, +S2 - GI/Abdominal Exam GI & Abdominal Exam: Soft. absent: Distended, Tenderness - Extremities Exam Additional comments: moderate leg edema; - Neurological Exam Neurological Exam: Alert, Awake - Psychiatric Exam Psychiatric exam: Agitated - Skin Skin Exam: Warm. absent: Cyanosis Assessment and Plan (1) RAYMOND (acute kidney injury) Assessment & Plan: No improvement with starting diuretics for cardiorenal syndrome, urine output actually dropped; will again give trial of IV albumin with additional saline ( previous challenge likely inadequate); Overall poor prognosis; palliative consult reviewed; per family, patient's wishes were against any type of aggressive intervention (including dialysis - though not yet needed); now DNR/DNI; will continue medical management; Status: Acute (2) CKD (chronic kidney disease), stage IV Status: Chronic (3) CHF (congestive heart failure) Assessment & Plan: Relatively asymptomatic despite peripheral edema; again giving volume challenge as above; Status: Acute (4) Chronic kidney disease-mineral and bone disorder Status: Chronic (5) Hyperkalemia Status: Resolved (6) Anemia Status: Acute (7) Azotemia Assessment & Plan: Pre-renal etiology; numbers worsened; see above; Status: Acute
[2017-12-08] MEDS: Albumin Human 5% (12.5 gm/250 ml) IV SCH ×2 (00:32→06:23)
[2017-12-08] MEDS: Levothyroxine 75 MCG TAB PO SCH (06:22)
[2017-12-08 07:36] LABS: BASO # 0.5 K/mm3 (0.0-2.0); BASO % 3.4 % (0.0-3.0); EOS # 0.2 (0.0-0.7); EOS % 1.4 % (1.5-5.0); GRAN # 11.11 (1.4-6.5); GRAN % 74.6 % (50.0-68.0); HEMOGLOBIN 7.6 g/dL (14.0-18.0); LYMPH # 0.9 (1.2-3.4); LYMPH % 6.3 % (22.0-35.0); MEAN CELL VOLUME 82.7 fl (80.0-105.0); MEAN CORPUSCULAR HEMOGLOBIN 26.9 pg (25.0-35.0); MEAN CORPUSCULAR HGB CONC 32.5 g/dl (31.0-37.0); MEAN PLATELET VOLUME 9.8 fl (7.0-11.0); MONO # 2.1 (0.1-0.6); MONO % 14.3 % (1.0-6.0); RBC 2.83 10^6/uL (3.5-6.1); WHITE BLOOD COUNT 14.9 10^3/ul (4.5-11.0)
--- NOTE | 2017-12-08 08:04 | PN ---
DATE: 12/08/2017 PULMONARY NOTE SUBJECTIVE: The patient appears comfortable this morning. He is not short of breath at rest. PHYSICAL EXAMINATION VITAL SIGNS: Temperature 97.4, pulse is 64, respirations 18, blood pressure 99/52. Oxygen saturation on room air is 97%. HEENT: Normocephalic, atraumatic. No JVD. CARDIOVASCULAR: Systolic ejection murmur at the lower left sternal border. Questionable S3 gallop. LUNGS: Decreased breath sounds at the bases. No rhonchi. No wheezing. EXTREMITIES: No clubbing, cyanosis or edema. Calves are nontender to palpation. GI: Abdomen is soft, nontender and nondistended. Bowel sounds are positive. SKIN: No acute rash. NEUROLOGIC: Limited at the present time. IMPRESSION: 1. Epistaxis - resolved. 2. Chronic anemia. 3. Acute on chronic kidney disease. 4. Congestive heart failure. 5. Pulmonary hypertension. 6. Myelodysplastic syndrome. PLAN: The patient appears very comfortable this morning. He is not short of breath at rest. He does state to feeling much better overall. On physical exam, there is no bronchospasm noted. In addition, the oxygen saturation on room air is 97%. I will continue with the aspiration precautions for now. I will also continue the patient on his Revatio - for the pulmonary hypertension. Inputs by Renal and Cardiology are noted. Input by Lori Pfeiffer (palliative care) is also noted. I did discuss the case with the night nurse at length. The night nurse stated that the patient may be for hospice transfer in the near future. I will discuss the above with Dr. Louis. Carlos Sandoval MD [facility]
[2017-12-08 08:13] LABS: ALBUMIN 2.8 g/dL (3.0-4.8); CALCIUM 7.7 mg/dL (8.4-10.5)
[2017-12-08] MEDS: Insulin Reg-MEDIUM-Coverage SC SCH ×4 (08:40→22:44)
--- NOTE | 2017-12-08 10:22 | PN ---
SUBJECTIVE: The patient was seen and examined at bedside on the remote telemetry dempsey. No acute events overnight. He remains largely clinically unchanged. He continues to deny fevers, chills, rigors or any further overt blood loss. After extensive discussion with the patient's family and the assistance of Lori Pfeiffer of Palliative Care Services, arrangements are being made for hospice evaluation given the patient's multiple medical comorbidities and the fact that despite aggressive medical therapy he has not demonstrated any significant improvement in his clinical status. OBJECTIVE VITAL SIGNS: Temperature 97.4, pulse 64, blood pressure 99/52, respiratory rate 18, oxygen saturation 97% on room air. GENERAL: No apparent distress. HEENT: PERRL. EOMI. No scleral icterus. Conjunctival pallor is noted. NECK: No JVD. LUNGS: Decreased breath sounds at the bases with scattered rhonchi. CARDIOVASCULAR: Regular rate and rhythm. Normal S1 and S2. Grade II/ systolic murmur to the left upper sternal border. ABDOMEN: Normoactive bowel sounds. Soft, nontender, mildly distended, no rigidity, no tympany. Paracentesis access appears c/d/i. EXTREMITIES: Trace to 1+ bilateral lower extremity edema. NEUROLOGIC: Awake, alert, and oriented x3. No focal motor deficits. LABORATORY DATA: WBC 14.9 with 75% neutrophils, hemoglobin 7.6, hematocrit 23, platelets 138, 000. Chemistry pending. ASSESSMENT: The patient is a 77 year old man with multiple medical comorbidities including chronic diastolic heart failure with severe pulmonary hypertension, history of recurrent ascites secondary to underlying right heart failure, CKD stage IV, anemia of chronic disease, MDS, AFib, and hypothyroidism who was sent from [facility] for evaluation of 2 episodes of epistaxis/oropharyngeal bleed and was admitted for management of RAYMOND on CKD, [id number] diastolic heart failure exacerbation and hyperkalemia and who is now pending evaluation and placement into hospice. PLAN 1. Epistaxis/oropharyngeal bleed, resolved. The patient has been transfused a total of 4 units of PRBCs since admission and there have been no witnessed bleeding episodes since admission. Stool occult blood is negative. We will continue to monitor for any bleeding and monitor CBC daily. 2. CKD stage IV. Input from Dr. Joe noted and appreciated. The patient is s/p infusion of albumin with no improvement in his volume status. The patient is a poor dialysis candidate given his underlying cognitive impairment and after an extensive discussion with the family and Lori Pfeiffer, the family does not want any further aggressive therapy. We will continue with medical management consisting of diuretics. 3. MDS. Continue with care as per Dr. Constantino. 4. Anemia of chronic disease secondary to the patient's underlying MDS and CKD. The patient has a baseline Hb of 7-8. Continue to monitor CBC daily. 5. [id number] diastolic heart failure exacerbation. Input from Dr. Johns noted. Continue with Lasix. 6. Severe pulmonary hypertension. Input from Dr. Sandoval appreciated. The patient remains on Sildenafil 20 mg p.o. b.i.d. 7. Hypothyroidism. Continue Synthroid 75 mcg p.o. daily. 8. Hypertension. The patient remains off antihypertensives. 9. BPH. 10. GERD. Continue Protonix 40 mg p.o. daily. 11. History of recurrent ascites secondary to underlying right heart failure/ severe pulmonary hypertension. 12. Prophylaxis. Continue Protonix for GI prophylaxis and SCDs for DVT prophylaxis. 13. Disposition. The patient is pending hospice evaluation as per family request. CODE STATUS: DNR/DNI. Jan Louis MD MTDD
[2017-12-08] MEDS: Pantoprazole 40 mg EC Tab PO SCH (10:40)
[2017-12-08] MEDS: Sildenafil 20 MG TAB PO SCH ×2 (10:41→18:26)
--- NOTE | 2017-12-08 10:51 | CP.PCM.PN ---
Subjective - Date & Time of Evaluation Date of Evaluation: 12/08/17 Time of Evaluation: 10:46 - Subjective Subjective: Podiatry Progress Note - Dr. Whitney 77 year old male patient PMHx CHF seen and evaluated at bedside for bilateral foot wounds. Patient seen resting comfortably, NAD. No acute events overnight. Multipodus boots present bilaterally. No pedal complaints this visit. Denies N/V /F/D/C/SOB/calf pain. Objective - Vital Signs/Intake and Output Vital Signs (last 24 hours): Temp Pulse Resp BP Pulse Ox 97.4 F L 64 18 99/52 L 97 12/08/17 06:00 12/08/17 06:00 12/08/17 06:00 12/08/17 06:00 12/08/17 06:00 Intake and Output: 12/08/17 12/08/17 06:59 18:59 Intake Total 623 Balance 623 - Medications Medications: Current Medications Furosemide (Lasix) 20 mg IVP Q12 [facility] Last Admin: 12/07/17 11:39 Dose: Not Given Insulin Human Regular (Humulin R Med) 0 units SC ACHS [facility] PRN Reason: Protocol Last Admin: 12/08/17 08:40 Dose: 1 units Levothyroxine Sodium (Synthroid) 75 mcg PO 0600 [facility] Last Admin: 12/08/17 06:22 Dose: 75 mcg Pantoprazole Sodium (Protonix Ec Tab) 40 mg PO DAILY [facility] Last Admin: 12/07/17 11:34 Dose: 40 mg Sildenafil Citrate (Revatio) 20 mg PO BID [facility] Last Admin: 12/07/17 18:13 Dose: 20 mg Sodium Bicarbonate (Sodium Bicarbonate Tab) 1,300 mg PO TID [facility] Last Admin: 12/07/17 18:10 Dose: 1,300 mg - Labs Labs: 12/08/17 07:00 12/08/17 07:00 PT 14.6 SECONDS (9.4-12.5) H 11/30/17 19:30 INR 1.27 (0.93-1.08) H 11/30/17 19:30 APTT 31.1 Seconds (25.1-36.5) 11/30/17 19:30 - Constitutional Appears: Well, Non-toxic, No Acute Distress - Extremities Exam Additional comments: Patient resting in bed with externally rotated bilateral lower extremities and knees flexed 90 degrees; appears to be semi-rigid as patient withdraws to this position. Multipodus boots present to bilateral LE. VASC: DP/PT pulses are palpable 2/4 b/l, Cap refill time: < 3 sec to all digits , Temp gradient: warm to warm from proximal to distal, +1 pitting edema noted to bilateral lower extremities. DERM: RLE - Unstageable deep tissue injuries noted to right heel, base of 5th metatarsal, head of 5th metatarsal; all noted to have intact roof. LLE - Necrotic eschar noted to posterior heel that appears to have hardened, with eroded superficial layer on plantar aspect; periwound erythema noted. Fluid -filled bullae x2 noted to plantarmedial arch with intact roof. NEURO: Unable to assess ORTHO: Pain on palpation to deep tissue injuries and eschar b/l, L>R. - Neurological Exam Neurological Exam: Alert, Awake, Oriented x3 - Psychiatric Exam Psychiatric exam: Normal Affect, Normal Mood Assessment and Plan - Assessment and Plan (Free Text) Assessment: 77 year old male patient with PMHx of CHF with multiple deep tissue injuries to feet b/l and necrotic eschar left heel. Plan: Patient seen and evaluated with attending, Dr. Whitney Afebrile, WBC increasing 14.9 Left heel continues to demarcate and harden; superficial layer removed from plantar heel without incident -Will continue to monitor Continue local wound care - optifoam to wounds b/l Continue multipodus boots at all times while in bed Podiatry will continue to follow patient while in house
[2017-12-08 12:38] VITALS: TEMP 98.4
[2017-12-08 20:32] VITALS: BP 125/56; PULSE 62; O2SAT 96
--- NOTE | 2017-12-08 22:50 | CP.PCM.PN ---
Objective - Vital Signs/Intake and Output Vital Signs (last 24 hours): Temp Pulse Resp BP Pulse Ox 98.4 F 62 18 125/56 L 96 12/08/17 18:00 12/08/17 18:00 12/08/17 18:00 12/08/17 18:00 12/08/17 18:00 Intake and Output: 12/08/1718 18:59 06:59 Intake Total 1020 Output Total 450 Balance 570 - Medications Medications: Current Medications Furosemide (Lasix) 20 mg IVP Q12 [facility] [place] Last Admin: 12/07/17 11:39 Dose: Not Given Insulin Human Regular (Humulin R Med) 0 units SC ACHS [facility] [place] PRN Reason: Protocol Last Admin: 12/08/17 22:44 Dose: Not Given Levothyroxine Sodium (Synthroid) 75 mcg PO 0600 [facility] [place] Last Admin: 12/08/17 06:22 Dose: 75 mcg Pantoprazole Sodium (Protonix Ec Tab) 40 mg PO DAILY [facility] [place] Last Admin: 12/08/17 10:40 Dose: 40 mg Sildenafil Citrate (Revatio) 20 mg PO BID [facility] [place] Last Admin: 12/08/17 18:26 Dose: 20 mg Sodium Bicarbonate (Sodium Bicarbonate Tab) 1,300 mg PO TID [facility] [place] Last Admin: 12/08/17 18:26 Dose: 1,300 mg - Labs Labs: 12/08/17 07:00 12/08/17 07:00 PT 14.6 SECONDS (9.4-12.5) H 11/30/17 19:30 INR 1.27 (0.93-1.08) H 11/30/17 19:30 APTT 31.1 Seconds (25.1-36.5) 11/30/17 19:30 Assessment and Plan (1) RAYMOND (acute kidney injury) Status: Acute (2) CKD (chronic kidney disease), stage IV Status: Chronic (3) CHF (congestive heart failure) Status: Acute (4) Chronic kidney disease-mineral and bone disorder Status: Chronic (5) Hyperkalemia Status: Resolved (6) Anemia Status: Acute (7) Azotemia Status: Acute
== END 2017-12-08 22:53 | DRG 682 ==
LOC: ED 17:12 → ERH 21:17 → 3RSO 12-01 16:52
PROVIDERS: ADMIT Student in an Organized Health Care Education/Training Program; ATTEND Student in an Organized Health Care Education/Training Program
PROC: 30233N1 Transfusion of Nonautologous Red Blood Cells into Peripheral Vein, Percutaneous Approach (ICD-10-PCS; principal; 2017-12-01)
DX: N17.9 Acute kidney failure, unspecified (principal); I50.33 Acute on chronic diastolic (congestive) heart failure; K92.0 Hematemesis; D69.1 Qualitative platelet defects; E87.5 Hyperkalemia; E87.1 Hypo-osmolality and hyponatremia; I08.1 Rheumatic disorders of both mitral and tricuspid valves; I13.0 Hypertensive heart and chronic kidney disease with heart failure and stage 1 through stage 4 chronic kidney disease, or unspecified chronic kidney disease; R18.8 Other ascites; N18.4 Chronic kidney disease, stage 4 (severe); I27.29 Other secondary pulmonary hypertension; I48.2 Chronic atrial fibrillation; D63.8 Anemia in other chronic diseases classified elsewhere; I50.82 Biventricular heart failure; D46.9 Myelodysplastic syndrome, unspecified; E03.9 Hypothyroidism, unspecified; F79 Unspecified intellectual disabilities; G47.00 Insomnia, unspecified; K06.8 Other specified disorders of gingiva and edentulous alveolar ridge; K21.9 Gastro-esophageal reflux disease without esophagitis; M89.9 Disorder of bone, unspecified; N40.0 Benign prostatic hyperplasia without lower urinary tract symptoms; R04.0 Epistaxis; Z66 Do not resuscitate; Z87.891 Personal history of nicotine dependence